=== PATIENT | male | born 1970 | race Caucasian/White ===

== ENCOUNTER 2017-05-20 05:40 | Inpatient (IN) ==
[2017-05-20] MEDS ORDERED: 0.9 % Sodium Chloride 500 ML IVC ONE ×2 (05:42→06:38)
[2017-05-20] MEDS ORDERED: Ondansetron 4 MG/2 ML VIAL IVP ONE (05:42)
--- NOTE | 2017-05-20 05:43 | Emergency Department Note ---
Disposition Clinical Impression: Dyspnea Disposition: Still a Patient Condition: Good Forms: ED Satisfaction Letter Time of Disposition: 06:44 General Adult HPI - General Chief complaint: ED Shortness of Breath/Dyspnea Stated complaint: RUPESH Time Seen by Provider: 05/20/17 05:41 Source: patient Mode of arrival: EMS Limitations: no limitations Nursing Notes Reviewed: Yes Vital Signs Reviewed: Yes - History of Present Illness HPI Narrative: Patient presents to the ED via EMS with the chief complaint of dyspnea. Patient is a peritoneal dialysis patient of Dr. Basurto. He states that he was having some cough and congestion the last time he saw him. States that he had a temperature up to 104.5. He states his deer farmer elected to give him Tylenol and not prescribe antibiotics at that time for suspected pneumonia. Additionally, he states that for the last 3 days he has had intermittent nonbloody, nonbilious non-melanic, vomiting and diarrhea. No associated abdominal pain. No chest pain. States that he woke up this morning during the middle of his peritoneal dialysis treatment and noticed that he was much more short of breath than usual, so he called EMS. Reports that he still had a few hours left on his dialysis so he does have more fluid on his belly than usual. There is no acute change for him from this. Last dose of Tylenol was approximately midnight - Related Data Home Medications Medication Instructions Recorded Confirmed Allopurinol [Zyloprim 300 MG] 300 mg PO DAILY 01/17/17 04/11/17 Cholecalciferol (Vitamin D3) 50,000 unit PO MO 01/17/17 04/11/17 [Vitamin D3] Furosemide [Lasix] 40 mg PO BID 01/17/17 04/11/17 Lisinopril 40 mg PO DAILY 01/17/17 04/11/17 Metoprolol [Lopressor] 100 mg PO BID 01/17/17 04/11/17 NIFEdipine [Nifedical Xl] 60 mg PO DAILY 01/17/17 04/11/17 Potassium Chloride [K-Tab ER] 10 meq PO DAILY 04/11/17 04/11/17 Previous Rx's Medication Instructions Recorded OxyCODONE/APAP 5/325 [Percocet 1 each PO Q6HR PRN #20 tablet 04/11/17 5/325 MG] Allergies Allergy/AdvReac Type Severity Reaction Status Date / Time No Known Allergies Allergy Verified 05/20/17 05:50 Constitutional: Reports: fever Cardiovascular: Denies: chest pain Respiratory: Reports: cough, dyspnea Gastrointestinal: Reports: nausea, vomiting, diarrhea. Denies: abdominal pain Musculoskeletal: Denies: back pain Integumentary: Denies: rash Endocrine: Reports: fatigue Past Medical History - Past Medical History Attestation: Yes The following information was validated with the patient. Source: patient Medical history: Reports: diabetes, hypertension, kidney stones, renal disease, thyroid disease Psychiatric history: Reports: no psych history - Social History Smoking Status: Former smoker Smokeless Tobacco Status: Yes Alcohol use: Reports: none Drug use: Reports: none Physical Exam - General Limitations: no limitations General appearance: alert, in no apparent distress, other (Appears ill) - Head Head exam: atraumatic, normocephalic, normal inspection - Eye Eye exam: Present: normal appearance, EOMI - ENT ENT exam: mucous membranes dry - Respiratory Respiratory exam: Absent: normal lung sounds bilaterally (Course breath sounds bilaterally) - Cardiovascular Cardiovascular exam: Present: regular rate, normal rhythm, normal heart sounds - Abdominal Exam Abdominal exam: Present: soft, Non-Tender, distention (Does have some distention but states this is from extra fluid not being taken off during his dialysis tonight), other (Peritoneal dialysis site in the left abdomen is clean and dry with no signs of infection). Absent: tenderness, guarding, rebound - Extremities Exam Extremities exam: Present: normal inspection, full ROM. Absent: tenderness, pedal edema - Neurological Exam Neurological exam: Present: alert, oriented X3 - Psychiatric Psychiatric exam: Present: normal affect, normal mood - Skin Skin exam: Present: warm, dry, intact, normal color Course Course Narrative: 47 y/o M history of peritoneal dialysis presenting with high fever, suspected pneumonia, vomiting and diarrhea. Patient's febrile here. Broad workup initiated. Abdomen is soft and do not think this is the likely source of his infection. Due to his cough and congestion. He states that he feels like he may have pneumonia. We will get a 2 view chest x-ray, EKG, and gingerly give fluids. Patient is slightly hypotensive and tachycardic. We will check his response to initial bolus and repeat as needed. He does look ill, but is nontoxic and is mentating normally Vital Signs Temperature 102.7 F H 05/20/17 05:42 Pulse Rate 139 05/20/17 05:42 Respiratory Rate 24 05/20/17 05:42 Blood Pressure 102/66 05/20/17 05:42 O2 Sat by Pulse Oximetry 96 05/20/17 05:42 Temperature 102.7 F H 05/20/17 05:42 Pulse Rate 111 05/20/17 06:35 Respiratory Rate 20 05/20/17 06:35 Blood Pressure 103/73 05/20/17 06:35 O2 Sat by Pulse Oximetry 100 05/20/17 06:35 Oxygen Delivery Oxygen Delivery Room Air Medical Decision Making - Medical Records Medical records reviewed: Yes I reviewed the patient's medical records. - Lab Data Lab results reviewed: Yes I reviewed the patient's lab results. - Radiology Data Radiology results reviewed: Yes I reviewed the patient's radiology results. - EKG Data EKG #1 EKG attestation: Yes I reviewed and interpreted this EKG. EKG results narrative: Sinus tach, rate 125, MA interval 158, QRS 96, QTC 381, normal axis, no ischemic changes. S.B.A.R. - Zully.Christina.A.Haider Situation: Demographics, MOA Background: Presenting Complaint, Relevant PMH, Meds, & Allergies Assessment: Vital Signs, Course and respsone to treatment, Exam Concerns, Patient/Family Expectation, Pertinant Lab Results, Outstanding Labs Recommendation: Barrier(s) to disposition, Recommendation based on pending studies, treatments, or consults S.B.ABrody Report Given to: Dr. Nannette Esparza Repor Time: 06:44
--- NOTE | 2017-05-20 05:51 | Emergency Department Note ---
START Narrative - START START: I examined this patient and my medical decision-making was reviewed with the TERRITORY SALES MANAGER MEDICAL/PA/Advanced Practice Nurse/Resident Physician. I agree with the documented findings, disposition and treatment plan as described except to the extent set forth below. ED attending note: Patient seen with emergency medicine resident . Please see a copy of his note for details of the H&P, evaluation, management and disposition of this patient. We independently had [id number] contact with the patient Briefly: A 47-year-old male by EMS. Chief complaint of shortness of breath cough and fever. Patient who was stage IV kidney disease is on peritoneal dialysis did 3-4 treatments last night. Fever up to 104.5 since discussed this with his PCP who held off on antibiotics and said Tylenol for now and 5 in the ER. Tachycardic in the 130s systolic 102 when he is normally baseline hypertensive. Peritoneal dialysis site on the abdominal wall is free and clear of infection swelling bleeding or discharge. Patient will be getting a chest x-ray and screening lab work. EKG shows sinus tachycardia without acute ischemic changes. Patient will get a fluid bolus carefully judiciously started and 500 mL. Providing 35 minutes critical care service for this patient , admission anticipated, disposition pending.
[2017-05-20 06:46] LABS: Mean Corpuscular Volume 88.1 fL (83.0-100.0); Red Blood Count 2.95 M/mcL (4.19-5.50); Red Cell Distribution Width 13.2 % (11.5-14.5)
[2017-05-20 06:49] LABS: Hemoglobin 8.9 g/dL (12.9-16.9); Immature Platelets 6.4 % (1.1-6.1); Mean Corpuscular HGB Conc 34.2 g/dL (31.6-35.5); Mean Corpuscular Hemoglobin 30.2 pg (28.0-33.3); Mean Platelet Volume 11.4 fL (9.4-12.4)
[2017-05-20 06:57] LABS: Albumin 2.4 g/dL (3.5-5.0); Bilirubin,Direct 0.5 mg/dL (0.0-0.5); Bilirubin,Indirect 0.3 mg/dL (0.0-1.2); Bilirubin,Total 0.8 mg/dL (0.2-1.2); Globulin 2.5 g/dL (2.4-3.5); Potassium 3.2 mEq/L (3.5-4.5); Total Protein 4.9 g/dL (6.0-8.3)
[2017-05-20 06:59] LABS: Prothrombin Time 22.4 Seconds (9.4-12.1)
[2017-05-20 07:02] LABS: Activated Partial Thrombo Time 32.1 Seconds (26.0-36.0); Platelet Count 89 K/mcL (140-400)
--- NOTE | 2017-05-20 07:35 | Emergency Department Note ---
Disposition Clinical Impression: Dialysis patient, Tachycardia, Dehydration, Sepsis due to undetermined organism Dyspnea Qualifiers: Dyspnea type: dyspnea on exertion Qualified Code(s): R06.09 - Other forms of dyspnea Fever Qualifiers: Fever type: unspecified Qualified Code(s): R50.9 - Fever, unspecified Disposition: Admitted As Inpatient Condition: Good Time of Disposition: 08:00 SOB HPI - General Chief Complaint: ED Shortness of Breath/Dyspnea Stated Complaint: RUPESH Time Seen by Provider: 05/20/17 05:41 Source: patient Mode of arrival: EMS Limitations: no limitations - Related Data Home Medications Medication Instructions Recorded Confirmed RX: Allopurinol [Zyloprim 300 MG] 300 mg PO DAILY 01/17/17 04/11/17 RX: Cholecalciferol (Vitamin D3) 50,000 unit PO MO 01/17/17 04/11/17 [Vitamin D3] RX: Furosemide [Lasix] 40 mg PO BID 01/17/17 04/11/17 RX: Lisinopril 40 mg PO DAILY 01/17/17 04/11/17 RX: Metoprolol [Lopressor] 100 mg PO BID 01/17/17 04/11/17 RX: NIFEdipine [Nifedical Xl] 60 mg PO DAILY 01/17/17 04/11/17 RX: Potassium Chloride [K-Tab ER] 10 meq PO DAILY 04/11/17 04/11/17 Previous Rx's Medication Instructions Recorded OxyCODONE/APAP 5/325 [Percocet 1 each PO Q6HR PRN #20 tablet 04/11/17 5/325 MG] Allergies Allergy/AdvReac Type Severity Reaction Status Date / Time No Known Allergies Allergy Verified 05/20/17 05:50 Constitutional: Reports: fever Cardiovascular: Denies: chest pain Respiratory: Reports: cough, dyspnea Gastrointestinal: Reports: nausea, vomiting, diarrhea. Denies: abdominal pain Musculoskeletal: Denies: back pain Integumentary: Denies: rash Endocrine: Reports: fatigue Past Medical History - Past Medical History Medical history: Reports: diabetes, hypertension, kidney stones, renal disease, thyroid disease Psychiatric history: Reports: no psych history - Social History Smoking Status: Former smoker Smokeless Tobacco Status: Yes Alcohol use: Reports: none Drug use: Reports: none Physical Exam - General Limitations: no limitations General appearance: alert, in no apparent distress, other (Appears ill) Course Course Narrative: Patient taken over the start of my shift from Dr. Goyal. Detailed review the presentation symptoms and initial medical intervention were discussed and reviewed. Patient presents here today with fever over the last week. He was seen by his outside recruiting consultant and evaluated. They recommended conservative treatment at home and that they were going to monitor his antibiotics and medication regimens closely. He presented here this morning feeling significantly short of breath having a fever up to 102.7 and tachycardic. Initial intervention including sepsis evaluation withholding antibiotics were started. 500 mL fluid boluses were given to help with heart rate in the heart rate has responded appropriately. Initial labs are coming back during my treatment course. WBC count is normal the limit is 8.9 and will have a Hemoccult test performed at this time. Patient is denying dark malonic stools. Troponin is 0.12 do not have a comparison although the patient is denying chest pain. He has had shortness of breath but is responding appropriately to fluid at this point. Lactate is 4.3. It initially was 43.7 based on first lab draw some of the elevation could be secondary to lactic production from the fluid boluses will contact the recruiting consultant at this time for his recommendations on antibiotics and management. Otherwise patient is comfortable resting in the bed at this time starting to feel a little bit better. Expect him to need admission to the hospital for definitive management. Patient's postoperative recruiting consultant at this time - Reevaluation(s) Reevaluation #1: Patient was discussed with the hospitalist Dr. ferguson. We reviewed the patient' s presentation symptoms and consultation placed out to Dr. major. Consultation be placed in the order list. Nursing came to formulate the patient 's blood pressure did drop to 75/51 when he stood up to try to urinate. He is unable to make any urine. Second liter of fluids will be given at this time. Patient does meet sepsis criteria based on his vital signs at presentation but we do not have a focal source of this time. Again antibiotics requested to be held at this point until we have a source based on the recruiting consultant. We will continue to monitor cultures were drawn at this point Hemoccult to be completed and patient will be admitted to the floor. Otherwise patient is still resting, will monitor here until his blood pressure does respond to fluids and then have the patient complete remission. Patient was informed family was informed verbal comfortable despite this time Repeat blood pressure after patient is lying back in the bed for 10 minutes is 99/56. He is what appears to be fluid depleted secondary to his viral syndrome. We will continue with fluid hydration. Again this is not per protocol for sepsis the patient is being managed with advancing in conjunction with the on-call recruiting consultant. Time: 08:07 Reevaluation #2: Replete blood pressure stable. Patient is stable at the time of transport up to the floor. No other acute issues at this time.. Patient was offered a rectal evaluation but is deferring at this time requesting to have a dominance as he does not have any dark-colored stool and no history of bleeding. 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 Patient is hemodynamically stable after resting in the bed. Time: 08:24 - Consultations Consultation #1: Patient was discussed with the on-call recruiting consultant Dr. major. The details of his presentation symptoms medical evaluation yesterday in the office were discussed and reviewed. His recommendations this time was to withhold on antibiotics since he thinks this is a viral syndrome with no focal source. Urinalysis added onto his request. Blood cultures peripherally to be done now and then cultures will be drawn during dialysis on the dialysis port. Patient does not have any acute signs of peritonitis the site of the peritoneal dialysis catheter appears to be stable and no redness warmth or swelling. Vital signs are stabilizing. Repeat bolus of fluids to be given at this time. Patient is septic based on vital signs on presentation with unknown focal source of this point. He does have multiple lab derangements including lactic of 4.3. Repeat bolus of 1 L of fluid be given at this time the maintenance fluids to be ordered. The rest of the definitive management will be discussed with the hospitalist for admission and then evaluation by nephrology. Hospital was paged at this time Time: 07:59 Vital Signs Temperature 102.7 F H 05/20/17 05:42 Pulse Rate 139 05/20/17 05:42 Respiratory Rate 24 05/20/17 05:42 Blood Pressure 102/66 05/20/17 05:42 O2 Sat by Pulse Oximetry 96 05/20/17 05:42 Temperature 99 F 05/20/17 07:50 Pulse Rate 109 05/20/17 08:10 Respiratory Rate 18 05/20/17 08:10 Blood Pressure 99/46 05/20/17 08:10 O2 Sat by Pulse Oximetry 99 05/20/17 08:10 Oxygen Delivery Oxygen Delivery Room Air Shortness of Breath/Dyspnea - MDM Narrative Medical decision making narrative: Fever,, anemia dehydration, tachycardia, peritoneal dialysis - Medical Records Medical records reviewed: Yes I reviewed the patient's medical records. - Lab Data Lab results reviewed: Yes I reviewed the patient's lab results. Result diagrams: 05/20/17 06:10 05/20/17 06:10 Lab Results 05/20/17 05/20/17 05/20/17 Range/Units 06:05 06:10 06:10 WBC 7.5 (4.3-11.1) K/mcL RBC 2.95 L (4.19-5.50) M/mcL Hgb 8.9 L (12.9-16.9) g/dL Hct 26.0 L (37.5-50.1) % MCV 88.1 (83.0-100.0) fL MCH 30.2 (28.0-33.3) pg MCHC 34.2 (31.6-35.5) g/dL RDW 13.2 (11.5-14.5) % Plt Count 89 L (140-400) K/mcL MPV 11.4 (9.4-12.4) fL Seg Neutrophils % 60.0 % Band Neutrophils % 22.0 H (0-4) % Lymphocytes % Test Not Performed Metamyelocytes % 18.0 H (0) % Neutrophils # 6.2 (1.6-8.9) K/mcL Lymphocytes # COLOR TESTER Dohle Bodies Present A (Not Present) Platelet Estimate Decreased L (Normal) Immature Plt Fraction 6.4 H (1.1-6.1) % PT (9.4-12.1) Seconds INR APTT (26.0-36.0) Seconds Sodium 136 (136-145) mEq/L Potassium 3.2 L (3.5-4.5) mEq/L Chloride 103 (98-109) mEq/L Carbon Dioxide 19 (19-29) mEq/L BUN 54 H (8-26) mg/dL Creatinine 8.30 H (0.72-1.25) mg/dL Est GFR ( Amer) 9 L (> 60) Est GFR (Non-Af Amer) 7 L (> 60) BUN/Creatinine Ratio 7 (6-26) Glucose 148 H (70-99) mg/dL Calculated Osmolality 300 (280-300) Lactic Acid 4.3 H* (0.5-2.2) mmol/L Calcium 8.0 L (8.6-10.8) mg/dL Total Bilirubin 0.8 (0.2-1.2) mg/dL Direct Bilirubin 0.5 (0.0-0.5) mg/dL Indirect Bilirubin 0.3 (0.0-1.2) mg/dL AST 34 (5-34) Units/L ALT 19 (0-55) Units/L Alkaline Phosphatase 82 (38-126) Units/L Troponin I (0-0.03) ng/mL B-Natriuretic Peptide (0-100) pg/mL Serum Total Protein 4.9 L (6.0-8.3) g/dL Albumin 2.4 L (3.5-5.0) g/dL Globulin 2.5 (2.4-3.5) g/dL Albumin/Globulin Ratio 1.0 L (1.1-2.2) 05/20/17 05/20/17 05/20/17 Range/Units 06:10 06:10 06:10 WBC (4.3-11.1) K/mcL RBC (4.19-5.50) M/mcL Hgb (12.9-16.9) g/dL Hct (37.5-50.1) % MCV (83.0-100.0) fL MCH (28.0-33.3) pg MCHC (31.6-35.5) g/dL RDW (11.5-14.5) % Plt Count (140-400) K/mcL MPV (9.4-12.4) fL Seg Neutrophils % % Band Neutrophils % (0-4) % Lymphocytes % Metamyelocytes % (0) % Neutrophils # (1.6-8.9) K/mcL Lymphocytes # Dohle Bodies (Not Present) Platelet Estimate (Normal) Immature Plt Fraction (1.1-6.1) % PT (9.4-12.1) Seconds INR APTT (26.0-36.0) Seconds Sodium (136-145) mEq/L Potassium (3.5-4.5) mEq/L Chloride (98-109) mEq/L Carbon Dioxide (19-29) mEq/L BUN (8-26) mg/dL Creatinine (0.72-1.25) mg/dL Est GFR ( Amer) (> 60) Est GFR (Non-Af Amer) (> 60) BUN/Creatinine Ratio (6-26) Glucose (70-99) mg/dL Calculated Osmolality (280-300) Lactic Acid 3.2 H (0.5-2.2) mmol/L Calcium (8.6-10.8) mg/dL Total Bilirubin (0.2-1.2) mg/dL Direct Bilirubin (0.0-0.5) mg/dL Indirect Bilirubin (0.0-1.2) mg/dL AST (5-34) Units/L ALT (0-55) Units/L Alkaline Phosphatase (38-126) Units/L Troponin I 0.12 H* (0-0.03) ng/mL B-Natriuretic Peptide 177 H (0-100) pg/mL Serum Total Protein (6.0-8.3) g/dL Albumin (3.5-5.0) g/dL Globulin (2.4-3.5) g/dL Albumin/Globulin Ratio (1.1-2.2) /03/03 Range/Units 06:10 WBC (4.3-11.1) K/mcL RBC (4.19-5.50) M/mcL Hgb (12.9-16.9) g/dL Hct (37.5-50.1) % MCV (83.0-100.0) fL MCH (28.0-33.3) pg MCHC (31.6-35.5) g/dL RDW (11.5-14.5) % Plt Count (140-400) K/mcL MPV (9.4-12.4) fL Seg Neutrophils % % Band Neutrophils % (0-4) % Lymphocytes % Metamyelocytes % (0) % Neutrophils # (1.6-8.9) K/mcL Lymphocytes # Dohle Bodies (Not Present) Platelet Estimate (Normal) Immature Plt Fraction (1.1-6.1) % PT 22.4 H (9.4-12.1) Seconds INR 2.0 APTT 32.1 (26.0-36.0) Seconds Sodium (136-145) mEq/L Potassium (3.5-4.5) mEq/L Chloride (98-109) mEq/L Carbon Dioxide (19-29) mEq/L BUN (8-26) mg/dL Creatinine (0.72-1.25) mg/dL Est GFR ( Amer) (> 60) Est GFR (Non-Af Amer) (> 60) BUN/Creatinine Ratio (6-26) Glucose (70-99) mg/dL Calculated Osmolality (280-300) Lactic Acid (0.5-2.2) mmol/L Calcium (8.6-10.8) mg/dL Total Bilirubin (0.2-1.2) mg/dL Direct Bilirubin (0.0-0.5) mg/dL Indirect Bilirubin (0.0-1.2) mg/dL AST (5-34) Units/L ALT (0-55) Units/L Alkaline Phosphatase (38-126) Units/L Troponin I (0-0.03) ng/mL B-Natriuretic Peptide (0-100) pg/mL Serum Total Protein (6.0-8.3) g/dL Albumin (3.5-5.0) g/dL Globulin (2.4-3.5) g/dL Albumin/Globulin Ratio (1.1-2.2) - Radiology Data Radiology results reviewed: Yes I reviewed the patient's radiology results. Chest x-ray shows bilateral pulmonary congestion and no acute signs of infection or infiltrates Critical Care Time Critical Care Time: Yes Total Critical Care Time: 35 Attestation: Independent of medical intervention and management and consultations.
[2017-05-20 07:43] LABS: Neutrophils # 6.2 K/mcL (1.6-8.9); Platelet Estimate Decreased (Normal)
[2017-05-20 07:53] LABS: Dohle Bodies Present (Not Present)
[2017-05-20] MEDS ORDERED: 0.9 % Sodium Chloride 1,000 ML IVC ONE (08:04)
[2017-05-20] MEDS ORDERED: Ondansetron 4 MG/2 ML VIAL IVP PRN (08:48)
[2017-05-20] MEDS ORDERED: Acetaminophen 325 MG TABLET PO PRN (08:48)
[2017-05-20] MEDS ORDERED: Naloxone 0.4 MG/ML INJ IVP PRN (08:48)
[2017-05-20] MEDS ORDERED: D5% in Water 1,000 ML IVC PRN (08:51)
[2017-05-20] MEDS ORDERED: *HR* Dextrose 50 % in Water (Syg) 50 ML SYRINGE IVP PRN (08:51)
[2017-05-20] MEDS ORDERED: Dextrose Gel 15 GM PO PRN ×2 (08:51)
--- NOTE | 2017-05-20 09:21 | Internal Med History&Physical ---
Date of Encounter: 05/20/17 Time of Encounter: 08:55 Assessment and Plan (1) Sepsis due to undetermined organism Current visit: Yes Status: Acute Sepsis - present on admission - unclear etiology possibly acute gastroenteritis, possible infection at dialysis site or possibly cellulitis at recent incision site Tachycardia, hypotension, elevated lactic acid and fever Tylenol when necessary, cultures pending Chest x-ray - no acute process EKG - sinus tachycardia with no acute ST-T changes Troponin - 0.12, unclear etiology, trend troponin Echocardiogram pending Nephrology consult - ED physician discussed with , advised to hold antibiotics for now, he will evaluate patient Labs in a.m. (2) ESRD on peritoneal dialysis Current visit: Yes Status: Chronic Patient is normally on PD at home was recently on hemodialysis via a left subclavian catheter due to his recent surgery Nephrology consult (3) Anemia in ESRD (end-stage renal disease) Current visit: Yes Status: Chronic Chronic anemia due to end-stage renal disease Baseline hemoglobin is around 10 Slightly lower today, monitor Fecal Hemoccult pending (4) Type 2 diabetes mellitus Current visit: Yes Status: Chronic Type 2 diabetes mellitus, [id number], hyperglycemia Patient does not take any medication at home for diabetes Sliding scale insulin, glucose checks Qualifiers: Diabetes mellitus complication status: without complication Diabetes mellitus termite control service representative insulin use: without termite control service representative use Qualified Code(s): E11.9 - Type 2 diabetes mellitus without complications (5) Hypertension Current visit: Yes Status: Chronic Hypertension likely due to renal disease - hypotensive at present HOLD home blood pressure medications - until BP improves, monitor Qualifiers: Hypertension type: renovascular hypertension Qualified Code(s): I15.0 - Renovascular hypertension (6) Obstructive sleep apnea Current visit: Yes Status: Chronic On CPAP at home, continue (7) DVT prophylaxis Current visit: Yes Status: Acute Continue heparin subcutaneous Internal Medicine - H&P: HPI Chief complaint: Fever and shortness of breath Admitted From: Emergency Dept History of present illness: Mr. Rudd is a 47 year old male with past medical history of hypertension, diabetes, end-stage renal disease on hemodialysis and obstructive sleep apnea. He presents to the ED with complaints of fever and shortness of breath. On examination patient is awake and alert. Not in any distress. Able to provide all history. Patient's mother is at bedside. Patient states he developed diarrhea on Friday night and also had a temperature. Patient states symptoms have gradually worsened. He also had nausea with several episodes of vomiting. Patient denies blood in stool and denies blood in emesis. Patient mentions that he was short of breath early this morning and also had a fever of about 104. He then decided to come into the ED. No aggravating or alleviating factors. He mentions he saw his high lift operator yesterday for symptoms, and he was given Tylenol, advised conservative management. He mentions that he did not complete his peritoneal dialysis this morning, and that is likely causing his shortness of breath and edema. Patient recently underwent a laparoscopic cholecystectomy, and he states that one of the port sites seems to be infected. Patient denies chest pain, denies palpitation denies headache, denies lightheadedness, denies dizziness. Initial workup in the ED reveals sepsis, with elevated lactic acid and hypotension. His blood pressure is now improved with fluid bolus. EKG shows sinus tachycardia, chest x-ray does not show any acute process. ED physician has discussed with patient's high lift operator , advised to draw cultures and hold off on antibiotics until he evaluates the patient. Patient's troponin is slightly elevated at 0.12, we will trend troponin. Patient and his mother have been explained about his condition and plan of care. They understood and agreed. No unanswered questions. CODE STATUS full code. Past Med Surg Social Fam HX - Past Medical History Medical history: diabetes, hypertension, kidney stones, renal disease, thyroid disease, other (Sleep apnea) Psychiatric history: no psych history - Past Surgical History Surgical History: cholecystectomy (Laparoscopic done in March 2017), other ( Lithotripsy) - Social History Smoking Status: Former smoker Smokeless Tobacco Status: Yes Alcohol use: none Drug use: none Internal Medicine - H&P: Meds Allopurinol [Zyloprim 300 MG] 300 mg PO DAILY 01/17/17 [History] Cholecalciferol (Vitamin D3) [Vitamin D3] 50,000 unit PO MO 01/17/17 [History] Furosemide [Lasix] 40 mg PO BID 01/17/17 [History] Lisinopril 40 mg PO DAILY 01/17/17 [History] Metoprolol [Lopressor] 100 mg PO BID 01/17/17 [History] NIFEdipine [Nifedical Xl] 60 mg PO DAILY 01/17/17 [History] OxyCODONE/APAP 5/325 [Percocet 5/325 MG] 1 each PO Q6HR PRN #20 tablet 04/11/17 [Rx] Potassium Chloride [K-Tab ER] 10 meq PO DAILY 04/11/17 [History] Allergies No Known Allergies Allergy (Verified 05/20/17 05:50) All Systems PM: A 10-system review of systems was performed and is negative for pertinent findings except as documented above in the HPI. - Constitutional Constitutional: fatigue, fever(s), weakness - EENT Eyes: no blurry vision, no loss of vision - Cardiovascular Cardiovascular ROS IM: dyspnea, edema, lightheadedness, no chest pain, no dyspnea on exertion, no orthopnea, no syncope - Respiratory Respiratory: dyspnea, no cough, no dyspnea on exertion, no wheezing, no chest congestion - Gastrointestinal Gastrointestinal: diarrhea, nausea, vomiting, no abdominal pain, no bloating, no cramping, no hematochezia, no melena - Genitourinary Genitourinary ROS male: no dysuria - Musculoskeletal Musculoskeletal ROS IM: no arthralgias - Neurological Neurological ROS: no abnormal gait, no abnormal speech, no dizziness, no focal weakness, no loss of vision, no numbness, no tingling - Constitutional Vitals: Temp Pulse Resp BP Pulse Ox 98.0 F 106 22 111/72 94 05/20/17 08:47 05/20/17 08:47 05/20/17 08:47 05/20/17 08:47 05/20/17 08:47 General appearance: Present: A&O X 3, morbidly obese, no acute distress, answers questions appropriately Exam: ill-appearing, generalized weakness - Head Head exam: Present: atraumatic - Eye Eye exam: Present: EOMI - ENT ENT exam: Present: mucous membranes dry - Neck Neck exam general surgery: Present: supple - Respiratory Respiratory exam: Present: CTAB. Absent: rales, rhonchi, wheezes, tachypnea - Cardiovascular Cardiovascular exam: Present: +S1, +S2, tachycardia - GI/Abdominal GI/Abdominal exam: Present: soft, no peritoneal signs. Absent: firm, guarding, rigid, tenderness Additional comments: Obese abdomen, PD dialysis catheter in place, no infection at PD catheter site - Extremities Exam Extremities exam: Present: pedal edema (Mild bilateral), radial pulses palpable and symetrical. Absent: cyanotic, tenderness - Neurological Exam Neurological exam: Present: alert, oriented X3, no focal deficits - Skin Additional comments: Recent cholecystectomy port site in the epigastric region - erythema present with mild tenderness Internal Med - H&P Results - Labs CBC & Chem 7: 05/20/17 06:10 05/20/17 06:10
[2017-05-20] MEDS: Famotidine 20 MG TABLET PO SCH ×2 (09:25→20:28)
--- NOTE | 2017-05-20 10:42 | Nephrology Consult Note ---
Date of Encounter: 05/20/17 Time of Encounter: 10:39 Assessment and Plan (1) ESRD on peritoneal dialysis Current Visit: Yes Status: Chronic Checking PD fluid for Cell count and Diff with culture. Not suspecting Peritonitis as he is asymptomatic Checking BCx from the Permacath. With high fevers, tachycardia, elevated lactate and initially low BPs, I suspect sepsis. Upon seeing him and hearing this hx, I have added initially broad spectrum Abx including Zosyn and renally dosed Vanco (with Pharmacy monitoring). Not clear on the source but presuming perhaps the Permacath. Pending UA. He is also reporting body aches in his legs and neck, so the DDx could include Flu vs perhaps just hypokalemia (that likely developed from his recent N/V before admission). He received about 2L of 0.9% saline. Caution with further IVF d/t his ESRD status. He appears hemodynamically stable at this point. Will resume his PD. He currently has a dwell in place so this will help expedite collection of the PD fluid for assessment. Start 1.5% Dianeal, 5 times per day. Hx of Anemia: goal is 10-11, but will monitor. May add EPO during this admission. Thank you for consulting the [facility] group. Will follow with you. (2) Dehydration Current Visit: Yes Status: Acute (3) Fever Current Visit: Yes Status: Acute Qualifiers: Fever type: unspecified Qualified Code(s): R50.9 - Fever, unspecified (4) Anemia in ESRD (end-stage renal disease) Current Visit: Yes Status: Chronic History of Present Illness - Reason for Consult Consult date: 05/20/17 end stage renal disease Requesting physician: Mikey Brunson - Chief Complaint Fevers, Hx of ESRD - History of Present Illness Umair Rudd is a very pleasant 47 y/o obese WM with a pmh of biopsy proven IgA nephropathy, ESRD, DM, HTN and et al who presented to the ER with high fevers, N /V. He started PD earlier this Spring, but temporarily required a switch to HD since he developed cholecystis and required a Lap Adamaris. About two weeks ago he was able to resume PD, but the Permacath has not yet been removed (awaiting the appointment to be scheduled with Heide CÁRDENAS). He affirmed having high fevers yesterday, when I saw him at the outpt [facility] unit in [place], [place]. He denied productive sputum, abd pain near the PD catheter or rash. He developed N/V last night and presented to the ER earlier today. He still has a partial PD dwelling in place, he said. He uses a PD cycler at home. He also complained of neck and leg pains that he characterized as body aches. 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 Past Med Surg Social Fam HX - Past Medical History Medical history: diabetes, hypertension, kidney stones, renal disease, thyroid disease, other (Sleep apnea) Psychiatric history: no psych history - Past Surgical History Surgical History: cholecystectomy (Laparoscopic done in March 2017), other ( Lithotripsy) - Social History Smoking Status: Former smoker Smokeless Tobacco Status: Yes Alcohol use: none Drug use: none Medications and Allergies Cholecalciferol (Vitamin D3) [Vitamin D3] 50,000 unit PO MO 01/17/17 [History] Furosemide [Lasix] 40 mg PO BID 01/17/17 [History] Metoprolol [Lopressor] 100 mg PO BID 01/17/17 [History] NIFEdipine [Nifedical Xl] 60 mg PO DAILY 01/17/17 [History] Potassium Chloride [K-Tab ER] 10 meq PO DAILY 04/11/17 [History] Allopurinol [Zyloprim 100 MG] 100 mg PO DAILY 05/20/17 [History] Calcitriol 0.5 mcg PO DAILY 05/20/17 [History] Lisinopril [Zestril] 20 mg PO DAILY 05/20/17 [History] Allergies No Known Allergies Allergy (Verified 05/20/17 05:50) Review of Systems All Systems: reviewed and no additional remarkable complaints except as stated Exam - Vital Signs Vital signs: Initial Vital Signs Temp Pulse Resp BP Pulse Ox 102.7 F H 139 24 102/66 96 05/20/17 05:42 05/20/17 05:42 05/20/17 05:42 05/20/17 05:42 05/20/17 05:42 Intake and Output 05/19/17 05/20/17 05/20/17 23:59 07:59 15:59 Other: Weight 133.81 kg Blood Glucose* 153 Patient Weight 05/20/17 23:59 Weight 133.81 kg - General Appearance General appearance: well-developed, well-nourished, appears started age, obese EENT: ATNC, PERRL, mucous membranes moist Neck: supple Respiratory: clear Cardiology: no edema, regular rhythm, rapid rhythm, normal S1, normal S2 - Dialysis Access Dialysis Vascular Access: Venous Catheter (Left Tunneled Dialysis catheter with no exit site erythema.) Additional Comments: PD catheter was also intact without exit site erythema or any painful palpation. Integumentary: warm and dry Neurologic: no focal deficit, no asterixis, alert and oriented x3 Musculoskeletal: no deformities, no erythema, no clubbing Psychiatric: mood/affect appropriate, cooperative Results - Lab Results 05/20/17 06:10 05/20/17 06:10 Most recent lab results Calcium 8.0 mg/dL (8.6-10.8) L 05/20/17 06:10 Magnesium 1.2 mg/dL (1.6-2.6) L 05/20/17 09:15 I reviewed the above auto-generated data torres including Labs, Meds, Vitals, Imaging and progress notes. Consult Discharge Plan - Plan Referrals: Blayne Florence DO [Primary Care Provider] -
[2017-05-20] MEDS ORDERED: Vancomycin 2,000 MG in D5% in Water 500 ML IVPB ONE (10:50)
[2017-05-20] MEDS ORDERED: Vancomycin 1 EACH in D5% in Water 250 ML IVPB PRN (11:00)
[2017-05-20] MEDS: Insulin LISPRO 300 UNITS/3 ML VIAL SQ SCH ×2 (11:53→17:38)
[2017-05-20] MEDS: Perit. Dialysis with Dex 1.5 % 2,000 ML PERITONEAL SCH ×3 (13:02→20:30)
[2017-05-20] MEDS: Acetaminophen 325 MG TABLET PO PRN ×2 (13:06→20:34)
[2017-05-20 13:23] LABS: Bilirubin,Urine Negative (Negative); Blood,Urine Large (Negative); Clarity,Urine Cloudy (Clear); Color,Urine Yellow (Yellow); Glucose,Urine (UA) 100 mg/dL (Normal); Ketones,Urine Negative (Negative); Leukocyte Esterase,Urine Small (Negative); Nitrite,Urine Negative (Negative); Protein,Urine >=300 mg/dL (Neg-Trace); Specific Gravity,Urine 1.013 (1.010-1.025); Urobilinogen,Urine Normal (Normal)
[2017-05-20 13:25] LABS: Bacteria,Urine None Seen per hpf (None-Few); Hyaline Casts,Urine None Seen per lpf (None-Few); Squamous Epithelial Cell,Urine Many per lpf (None-Few); WBC,Urine 30-50 per hpf (0-3)
[2017-05-20] MEDS: Piperacillin/Tazobactam 3.375 GM in D5% in Water (Mini-Bag+) 100 ML IVPB SCH (16:28)
[2017-05-20] MEDS ORDERED: Acetaminophen 325 MG TABLET PO ONE (16:39)
[2017-05-20] MEDS: *HR* Heparin 5,000 UNIT/ML VIAL SQ SCH (17:38)
[2017-05-20 18:21] LABS: Appearance of Body Fluid Clear (Clear); Volume of Body Fluid 40 mL
[2017-05-20] MEDS ORDERED: *HR* OxyCODONE/APAP 5/325 TABLET PO PRN (23:42)
[2017-05-21] MEDS: Insulin LISPRO 300 UNITS/3 ML VIAL SQ SCH ×5 (00:29→23:14)
[2017-05-21] MEDS: Perit. Dialysis with Dex 1.5 % 2,000 ML PERITONEAL SCH ×5 (00:30→20:19)
[2017-05-21 00:56] LABS: blaKPC Carbapenem-Resist Gene Not Detected (Not Detect); mecA Methicillin-Resist Gene ***DETECTED*** (Not Detect)
[2017-05-21 00:57] LABS: Acinetobacter baumannii by PCR Not Detected (Not Detect); Candida albicans by PCR Not Detected (Not Detect); Candida glabrata by PCR Not Detected (Not Detect); Candida krusei by PCR Not Detected (Not Detect); Candida parapsilosis by PCR Not Detected (Not Detect); Candida tropicalis by PCR Not Detected (Not Detect); Enterococcus by PCR Not Detected (Not Detect); Escherichia coli by PCR Not Detected (Not Detect); Klebsiella oxytoca by PCR Not Detected (Not Detect); Klebsiella pneumoniae by PCR Not Detected (Not Detect); Pseudomonas aeruginosa by PCR Not Detected (Not Detect); Serratia marcescens by PCR Not Detected (Not Detect); Staphylococcus aureus by PCR ***DETECTED*** (Not Detect); Streptococcus agalactiae(B)PCR Not Detected (Not Detect); Streptococcus by PCR Not Detected (Not Detect); Streptococcus pneumoniae PCR Not Detected (Not Detect); Streptococcus pyogenes (A) PCR Not Detected (Not Detect); vanA/B Vancomycin-Resist Genes Not Detected (Not Detect)
[2017-05-21 04:13] LABS: Mean Platelet Volume 11.8 fL (9.4-12.4)
[2017-05-21 04:15] LABS: Hematocrit 25.2 % (37.5-50.1); Hemoglobin 8.5 g/dL (12.9-16.9); Immature Platelets 9.3 % (1.1-6.1); Mean Corpuscular HGB Conc 33.7 g/dL (31.6-35.5); Mean Corpuscular Hemoglobin 29.9 pg (28.0-33.3); Mean Corpuscular Volume 88.7 fL (83.0-100.0); Monocytes # 0.2 K/mcL (0.0-1.3); Red Blood Count 2.84 M/mcL (4.19-5.50); Red Cell Distribution Width 13.2 % (11.5-14.5)
[2017-05-21 04:18] LABS: Platelet Count 71 K/mcL (140-400)
[2017-05-21 04:25] LABS: Albumin 2.2 g/dL (3.5-5.0); Albumin/Globulin Ratio 0.8 (1.1-2.2); Bilirubin,Total 0.5 mg/dL (0.2-1.2); Calcium 8.2 mg/dL (8.6-10.8); Globulin 2.7 g/dL (2.4-3.5); Magnesium 1.3 mg/dL (1.6-2.6); Phosphorous 4.8 mg/dL (2.3-4.7); Potassium 3.1 mEq/L (3.5-4.5); Total Protein 4.9 g/dL (6.0-8.3)
[2017-05-21 04:32] LABS: Lymphocytes # 0.3 K/mcL (0.6-4.6); Neutrophils # 7.2 K/mcL (1.6-8.9); Platelet Estimate Decreased (Normal)
[2017-05-21 04:34] LABS: Dohle Bodies Present (Not Present); Toxic Granulation Present (Not Present); Toxic Vacuolation Present (Not Present)
[2017-05-21] MEDS: *HR* Heparin 5,000 UNIT/ML VIAL SQ SCH ×2 (05:59→17:01)
[2017-05-21] MEDS: Piperacillin/Tazobactam 3.375 GM in D5% in Water (Mini-Bag+) 100 ML IVPB SCH (06:00)
[2017-05-21] MEDS: Acetaminophen 325 MG TABLET PO PRN (06:03)
[2017-05-21] MEDS: Famotidine 20 MG TABLET PO SCH (07:44)
[2017-05-21 08:40] LABS: INR 1.6; Prothrombin Time 17.2 Seconds (9.4-12.1)
--- NOTE | 2017-05-21 09:24 | Nephrology Progress Note ---
Date of Encounter: 05/21/17 Time of Encounter: 08:50 - Assessment and Plan (1) ESRD on peritoneal dialysis Current Visit: Yes Status: Chronic Continue PD but he has MRSA bacteremia, and I've personally consulted and spoke with IR requesting a more urgent Permacath removal. Repeat INR today d/t an intrinisic elevation noted yesterday: if not improved enough, then give vit K today. He needs the source removed. PD fluid does not appear to be consistent with Peritionitis. Will increase KCl to 20mEq po bid and check Mag in AM Track CK Narrow the Abx spectrum to just Vanco. Stopping Zosyn Will he need a BRYAN? (2) Dehydration Current Visit: Yes Status: Acute (3) Fever Current Visit: Yes Status: Acute Qualifiers: Fever type: unspecified Qualified Code(s): R50.9 - Fever, unspecified (4) Anemia in ESRD (end-stage renal disease) Current Visit: Yes Status: Chronic Relatively stable (5) Elevated CK Current Visit: Yes Status: Acute (6) Neck pain Current Visit: Yes Status: Acute Could be connected to the Permacath vs hypokalemia vs the mild-moderately elevated CK. (7) MRSA bacteremia Current Visit: Yes Status: Acute Must remove the Permacath. Most likely etiology Subjective Principal diagnosis: Fevers; Hx of ESRD Interval history: Pt was seen/examined earlier today. He affirmed having ongoing neck pains near the site of the Permacath. We discussed his BCx findings, labs and plans for PD with Permacath removal. He affirmed that he does not take any blood thinners Objective - Vital Signs Vital signs: Vital Signs Temp Pulse Resp BP Pulse Ox 05/21/17 07:53 94 05/21/17 06:52 98.7 F 107 18 122/76 94 05/21/17 05:52 100.1 F H 20 05/21/17 03:08 99.1 F 106 20 113/68 92 05/20/17 23:33 97.7 F 92 22 116/72 98 05/20/17 23:19 21 96 05/20/17 20:18 101.2 F H 105 22 122/75 96 05/20/17 15:53 103.1 F H 112 22 140/67 92 05/20/17 11:43 98.6 F 69 18 95/59 94 Intake and Output 07/04/17 07/05/17 07/05/17 23:59 07:59 15:59 Intake Total 100 / 100 450 / 450 0 / 0 Output Total 620 / 620 825 / 825 Balance -520 / -520 -375 / -375 0 / 0 Intake: IV Fluids 100 / 100 Zosyn 3.375 GM In 100 / 100 Dextrose 5% (Minibag+) 100 ML 100 ML @ 25 mls/hr IVPB Q12HR ZOEY Rx#: [id number] Oral 0 / 0 450 / 450 0 / 0 Output: Urine 620 / 620 825 / 825 Other: Meal Breakfast Percent of Meal Consumed 50% Total Peritoneal Dialysis 0 300 Output # Voids 2 Weight 129.898 kg 135 kg 133.016 kg Blood Glucose* 184 143 Patient Weight 05/21/17 23:59 Weight 133.016 kg - General Appearance Exam: General appearance: well-developed, well-nourished, appears started age, obese EENT: ATNC, PERRL, mucous membranes moist Neck: supple Respiratory: clear Cardiology: no edema, regular rhythm, rapid rhythm, normal S1, normal S2 - Dialysis Access Dialysis Vascular Access: Venous Catheter (Left Tunneled Dialysis catheter with no exit site erythema.) Additional Comments: PD catheter was also intact without exit site erythema or any painful palpation. Integumentary: warm and dry Neurologic: no focal deficit, no asterixis, alert and oriented x3 Musculoskeletal: no deformities, no erythema, no clubbing Psychiatric: mood/affect appropriate, cooperative - Lab 05/21/17 04:03 05/21/17 04:03 Most recent lab results Calcium 8.2 mg/dL (8.6-10.8) L 05/21/17 04:03 Phosphorus 4.8 mg/dL (2.3-4.7) H 05/21/17 04:03 Magnesium 1.3 mg/dL (1.6-2.6) L 05/21/17 04:03 Consult Discharge Plan - Plan Referrals: Blayne Florence DO [Primary Care Provider] - 05/28/17 9:30 am (web request..05/21/2017)
--- NOTE | 2017-05-21 10:42 | Internal Med Progress Note ---
<Darrell Horton - Last Filed: 05/21/17 11:39> Date of Encounter: 05/21/17 Time of Encounter: 09:20 - Assessment and plan (1) Sepsis due to undetermined organism Current Visit: Yes Status: Acute Assessment and plan: Continue on vancomycin. Discontinue Zosyn. BRYAN ordered. Continue to monitor patient vitals. (2) ESRD on peritoneal dialysis Current Visit: Yes Status: Chronic (3) Anemia in ESRD (end-stage renal disease) Current Visit: Yes Status: Chronic Assessment and plan: Continue to monitor hemoglobin. Currently 8.5. Baseline hemoglobin is approximately 10. (4) Type 2 diabetes mellitus Current Visit: Yes Status: Chronic Assessment and plan: Sliding scale insulin, check glucose levels. Qualifiers: Diabetes mellitus complication status: without complication Diabetes mellitus exterminator insulin use: without halfway use Qualified Code(s): E11.9 - Type 2 diabetes mellitus without complications (5) Hypertension Current Visit: Yes Status: Chronic Assessment and plan: Continue to monitor blood pressure. Hypertension likely secondary to renal disease. Qualifiers: Hypertension type: renovascular hypertension Qualified Code(s): I15.0 - Renovascular hypertension (6) Obstructive sleep apnea Current Visit: Yes Status: Chronic Assessment and plan: Patient is on CPAP at home, continue. - Subjective Interval history: Patient was seen and examined at bedside this morning. He states that his breathing has improved since admission, and that he slept well last night. He denies having any nausea or vomiting but does admit to having diarrhea yesterday evening. He has not had a bowel movement this morning. His only other complaint is pain in his neck and posterior thighs bilaterally, which he describes as a sharp pain that was not present on admission. He denies fever, chills, chest pain, cough, congestion, and shortness of breath. - Constitutional Vitals: Temp Pulse Resp BP Pulse Ox 98.7 F 107 18 122/76 94 05/21/17 06:52 05/21/17 06:52 05/21/17 06:52 05/21/17 06:52 05/21/17 07:53 General appearance: Present: cooperative, A&O X 3, morbidly obese, no acute distress, answers questions appropriately - ENT ENT exam: Present: mucous membranes dry. Absent: mucous membranes moist - Respiratory Respiratory exam: Present: CTAB. Absent: accessory muscle use, rales, rhonchi, wheezes - Cardiovascular Cardiovascular exam: Present: RRR, +S1, +S2. Absent: diastolic murmur, gallop, rubs, systolic murmur Internal Medicine: Result - Labs CBC & Chem 7: 05/21/17 04:03 05/21/17 04:03 Labs: Short CBC 05/21/17 Range/Units 04:03 WBC 7.7 (4.3-11.1) K/mcL Hgb 8.5 L (12.9-16.9) g/dL Hct 25.2 L (37.5-50.1) % Plt Count 71 L (140-400) K/mcL Neutrophils # 7.2 (1.6-8.9) K/mcL BMP 05/21/17 04:03 Sodium 136 Potassium 3.1 L Chloride 103 Carbon Dioxide 22 BUN 61 H Creatinine 8.84 H Glucose 160 H Calcium 8.2 L Cardiac Enzymes 05/20/17 05/20/17 Range/Units 15:19 20:53 Troponin I 0.14 H* 0.15 H* (0-0.03) ng/mL Liver Function 05/21/17 Range/Units 04:03 Total Bilirubin 0.5 (0.2-1.2) mg/dL AST 93 H (5-34) Units/L ALT 33 (0-55) Units/L Alkaline Phosphatase 73 (38-126) Units/L Albumin 2.2 L (3.5-5.0) g/dL Urine 05/20/17 Range/Units 13:10 Urine Color Yellow (Yellow) Urine Clarity Cloudy A (Clear) Urine pH 6.0 (5.0-8.0) pH Units Ur Specific Moffat 1.013 (1.010-1.025) Urine Protein >=300 H (Neg-Trace) mg/dL Urine Glucose (UA) 100 H (Normal) mg/dL - ABG Interpretation ABG results: PT/INR, D-dimer PT 17.2 Seconds (9.4-12.1) H 05/21/17 08:27 Consult Discharge Plan - Plan Referrals: Blayne Florence DO [Primary Care Provider] - 05/28/17 9:30 am (web request..05/21/2017) <Clarence Moore - Last Filed: 05/21/17 17:49> Date of Encounter: 05/21/17 - Assessment and plan (1) Severe sepsis due to methicillin resistant Staphylococcus aureus (MRSA) with acute organ dysfunction Current Visit: Yes Status: Acute Assessment and plan: On IV abx. (2) MRSA bacteremia Current Visit: Yes Status: Acute Assessment and plan: MRSA line associated present on admission. Line removed. (3) Hypertension Current Visit: Yes Status: Chronic Qualifiers: Hypertension type: renovascular hypertension Qualified Code(s): I15.0 - Renovascular hypertension (4) Neck pain Current Visit: Yes Status: Acute Assessment and plan: Appears to be muscular. Will follow closely. (5) Type 2 diabetes mellitus Current Visit: Yes Status: Chronic Qualifiers: Diabetes mellitus complication status: without complication Diabetes mellitus exterminator insulin use: without exterminator use Qualified Code(s): E11.9 - Type 2 diabetes mellitus without complications (6) Obstructive sleep apnea Current Visit: Yes Status: Chronic (7) Elevated CK Current Visit: Yes Status: Acute Assessment and plan: Recheck. (8) Anemia in ESRD (end-stage renal disease) Current Visit: Yes Status: Chronic (9) Peritoneal dialysis status Current Visit: Yes Status: Acute - Constitutional Vitals: Temp Pulse Resp BP Pulse Ox 99.8 F H 82 18 118/69 94 05/21/17 15:26 05/21/17 15:26 05/21/17 15:26 05/21/17 15:26 05/21/17 15:26 Internal Medicine: Result - Labs CBC & Chem 7: 05/21/17 04:03 05/21/17 04:03 Labs: Short CBC 05/21/17 Range/Units 04:03 WBC 7.7 (4.3-11.1) K/mcL Hgb 8.5 L (12.9-16.9) g/dL Hct 25.2 L (37.5-50.1) % Plt Count 71 L (140-400) K/mcL Neutrophils # 7.2 (1.6-8.9) K/mcL BMP 05/21/17 04:03 Sodium 136 Potassium 3.1 L Chloride 103 Carbon Dioxide 22 BUN 61 H Creatinine 8.84 H Glucose 160 H Calcium 8.2 L Cardiac Enzymes 05/20/17 Range/Units 20:53 Troponin I 0.15 H* (0-0.03) ng/mL Liver Function 05/21/17 Range/Units 04:03 Total Bilirubin 0.5 (0.2-1.2) mg/dL AST 93 H (5-34) Units/L ALT 33 (0-55) Units/L Alkaline Phosphatase 73 (38-126) Units/L Albumin 2.2 L (3.5-5.0) g/dL - ABG Interpretation ABG results: PT/INR, D-dimer PT 17.2 Seconds (9.4-12.1) H 05/21/17 08:27 - Attending Attestation I examined this patient and my medical decision-making was reviewed with the Resident Physician on 05/21/17. I agree with the documented findings, disposition and treatment plan as described except to the extent set forth below. Mr. Rudd is currently admitted for acute severe sepsis due to MRSA bacteremia - line infection. He is high risk due to potential for worsening sepsis issues. Mr. Rudd is still feeling chilled at times. No fever now. BP has been OK. Having some pain in back of neck and back of legs on muscles. Exam Alert. Comfortable now Heart reg No wheeze Paraspinal tenderness on L in C spine Abd soft I/P 1. Severe sepsis due to MRSA bacteremia - line associated infection - present on admit. 2. ESRD on PD Further diagnoses and plan as above.
[2017-05-21 11:41] LABS: Acinetobacter baumannii by PCR Not Detected (Not Detect); Candida albicans by PCR Not Detected (Not Detect); Candida glabrata by PCR Not Detected (Not Detect); Candida krusei by PCR Not Detected (Not Detect); Candida parapsilosis by PCR Not Detected (Not Detect); Candida tropicalis by PCR Not Detected (Not Detect); Enterococcus by PCR Not Detected (Not Detect); Escherichia coli by PCR Not Detected (Not Detect); Klebsiella oxytoca by PCR Not Detected (Not Detect); Klebsiella pneumoniae by PCR Not Detected (Not Detect); Pseudomonas aeruginosa by PCR Not Detected (Not Detect); Serratia marcescens by PCR Not Detected (Not Detect); Staphylococcus aureus by PCR ***DETECTED*** (Not Detect); Streptococcus agalactiae(B)PCR Not Detected (Not Detect); Streptococcus by PCR Not Detected (Not Detect); Streptococcus pneumoniae PCR Not Detected (Not Detect); Streptococcus pyogenes (A) PCR Not Detected (Not Detect); mecA Methicillin-Resist Gene ***DETECTED*** (Not Detect)
--- NOTE | 2017-05-21 13:29 | Electrocardiograph Report ---
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
--- NOTE | 2017-05-21 13:29 | IR Procedure Note ---
Date of procedure: 05/21/17 Consent Obtained: Written consent Timeout: Correct patient and procedure verified, Correct site verified, Time out performed, Skin prep completed Local anesthetic: Lidocaine 1% Indications: MRSA bacteremia, ESRD Procedure Performed: Tunneled HD catheter removal Site/Technique: Left chest wall Results/Findings: Pulled after dissection. Removed in entirety. Estimated blood loss (cc): 0 Complications: None; Tolerated procedure well Post Procedure Treatment Plan: Monitoring in pts room
[2017-05-21] MEDS: Gentamicin Oint 15 GM TUBE TP SCH ×3 (14:06→20:20)
[2017-05-21] MEDS ORDERED: Famotidine 20 MG TABLET PO SCH (16:30)
[2017-05-21] MEDS ORDERED: Magnesium Sulfate 2 GM in D5% in Water 100 ML IVPB ONE (17:50)
[2017-05-21] MEDS: *HR* OxyCODONE/APAP 5/325 TABLET PO PRN (21:31)
[2017-05-22] MEDS: Perit. Dialysis with Dex 1.5 % 2,000 ML PERITONEAL SCH ×5 (00:32→20:28)
[2017-05-22] MEDS: *HR* Heparin 5,000 UNIT/ML VIAL SQ SCH ×2 (06:39→17:01)
[2017-05-22 06:55] LABS: Hemoglobin 8.4 g/dL (12.9-16.9); Red Cell Distribution Width 13.3 % (11.5-14.5)
[2017-05-22 06:57] LABS: Immature Platelets 13.7 % (1.1-6.1); Mean Corpuscular HGB Conc 33.6 g/dL (31.6-35.5); Mean Corpuscular Volume 89.3 fL (83.0-100.0)
[2017-05-22 07:07] LABS: Platelet Count 67 K/mcL (140-400)
[2017-05-22 07:19] LABS: Calcium 8.4 mg/dL (8.6-10.8); Magnesium 2.2 mg/dL (1.6-2.6); Potassium 3.2 mEq/L (3.5-4.5)
[2017-05-22] MEDS: Famotidine 20 MG TABLET PO SCH (07:46)
[2017-05-22] MEDS: Insulin LISPRO 300 UNITS/3 ML VIAL SQ SCH ×4 (07:55→23:25)
[2017-05-22 08:05] LABS: Basophils # 0.1 K/mcL (0.0-0.2); Lymphocytes # 0.7 K/mcL (0.6-4.6); Neutrophils # 5.1 K/mcL (1.6-8.9); Platelet Estimate Decreased (Normal)
[2017-05-22] MEDS ORDERED: Vancomycin 500 MG in D5% in Water (Mini-Bag+) 100 ML IVPB ONE (09:50)
[2017-05-22] MEDS ORDERED: 0.9 % Sodium Chloride 500 ML IVC ONE ×2 (10:03→10:37)
[2017-05-22] MEDS ORDERED: Tetracaine/Benzocaine/Butamben 200MG/SPRAY (100SPY/BOT) MM ONE (10:03)
[2017-05-22] MEDS: *HR* FentaNYL (PF) 100 MCG/2 ML VIAL IVP PRN ×3 (10:55→11:05)
[2017-05-22] MEDS: *HR* Midazolam HCl 5 MG/5 ML VIAL IVP PRN ×3 (10:55→11:05)
[2017-05-22] MEDS: Gentamicin Oint 15 GM TUBE TP SCH ×4 (11:46→20:30)
--- NOTE | 2017-05-22 12:51 | Nephrology Progress Note ---
Date of Encounter: 05/22/17 Time of Encounter: 09:00 - Assessment and Plan (1) ESRD on peritoneal dialysis Current Visit: Yes Status: Chronic Continue PD with sterile technique. Spoke with the RNs on sterile technique Permacath has been removed, which was the suspected etiology for the MRSA Bactermia May need higher dosing of the KCl There was a small blood clot x1 in the PD fluid, but not enough to add heparin to his PD fluid bags Vanco for MRSA Bactermia (2) Dehydration Current Visit: Yes Status: Acute (3) Fever Current Visit: Yes Status: Acute Qualifiers: Fever type: unspecified Qualified Code(s): R50.9 - Fever, unspecified (4) Anemia in ESRD (end-stage renal disease) Current Visit: Yes Status: Chronic Relatively stable (5) Elevated CK Current Visit: Yes Status: Acute (6) Neck pain Current Visit: Yes Status: Acute Could be connected to the Permacath vs hypokalemia vs the mild-moderately elevated CK. (7) MRSA bacteremia Current Visit: Yes Status: Acute Must remove the Permacath. Most likely etiology Subjective Principal diagnosis: Fevers; Hx of ESRD Interval history: Pt was seen/examined earlier today. He affirmed having periodic nausea but without vomiting. He did not report Abd pain or F/C. He mentioned some questions about PD technique. Objective - Vital Signs Vital signs: Vital Signs Temp Pulse Resp BP Pulse Ox 05/22/17 10:31 98.3 F 94 18 131/87 95 05/22/17 07:45 95 05/22/17 07:19 98.9 F 90 16 116/62 95 05/22/17 03:32 98.0 F 89 20 114/71 95 05/22/17 00:33 98.3 F 88 20 129/70 96 05/21/17 18:53 98.2 F 99 21 109/82 96 05/21/17 15:26 99.8 F H 82 18 118/69 94 Intake and Output 05/21/17 05/22/17 05/22/17 23:59 07:59 15:59 Intake Total 0 / 0 10 / 10 Output Total 525 / 525 350 / 350 0 / 0 Balance -525 / -525 -350 / -350 10 / 10 Intake: IV Fluids 10 / 10 0.9 % Sodium Chloride 500 10 / 10 ML @ 10 mls/hr IVC .Q24H ONE Rx#:[id number] Oral 0 / 0 0 / 0 Output: Urine 525 / 525 350 / 350 0 / 0 Other: Meal Dinner Percent of Meal Consumed 20% Total Peritoneal Dialysis 80 200 Output # Voids 1 Weight 132.903 kg 291.8 kg 131.995 kg Blood Glucose* 118 113 107 Patient Weight 05/22/17 23:59 Weight 131.995 kg - General Appearance Exam: General appearance: well-developed, well-nourished, appears started age, obese EENT: ATNC, PERRL, mucous membranes moist Neck: supple Respiratory: clear Cardiology: no edema, regular rhythm, rapid rhythm, normal S1, normal S2 - Dialysis Access Dialysis Vascular Access: dressing was clean overlying the former PD catheter location Additional Comments: PD catheter was also intact without exit site erythema or any painful palpation. Integumentary: warm and dry Neurologic: no focal deficit, no asterixis, alert and oriented x3 Musculoskeletal: no deformities, no erythema, no clubbing Psychiatric: mood/affect appropriate, cooperative - Lab 05/22/17 05:45 05/22/17 05:45 Most recent lab results Calcium 8.4 mg/dL (8.6-10.8) L 05/22/17 05:45 Phosphorus 4.8 mg/dL (2.3-4.7) H 05/21/17 04:03 Magnesium 2.2 mg/dL (1.6-2.6) 05/22/17 05:45 Consult Discharge Plan - Plan Referrals: Blayne Florence DO [Primary Care Provider] - 05/28/17 9:30 am (web request..05/21/2017)
--- NOTE | 2017-05-22 15:28 | Internal Med Progress Note ---
<Darrell Horton - Last Filed: 05/22/17 15:25> Date of Encounter: 05/22/17 Time of Encounter: 03:10 - Assessment and plan (1) Sepsis due to undetermined organism Current Visit: Yes Status: Acute Assessment and plan: Continue antibiotics. BRYAN was performed today. BRYAN did not reveal reveal any abnormalities on the heart valves. No infective endocarditis seen. Source of his original infection is unknown. Possibly due to infection of his port site, which has been removed, or an incision site from his laparoscopic cholecystectomy. Upon admission patient had tachycardia, hypotension, elevated lactic acid, and fever. Obtain another blood culture. (2) ESRD on peritoneal dialysis Current Visit: Yes Status: Chronic Assessment and plan: Nephrology has been consult. Patient was on hemodialysis by way of a left subclavian catheter. (3) Anemia in ESRD (end-stage renal disease) Current Visit: Yes Status: Chronic Assessment and plan: Continue to monitor hemoglobin. Patient's baseline hemoglobin is approximately 10, possibly due to his underlying kidney disease. (4) Type 2 diabetes mellitus Current Visit: Yes Status: Chronic Assessment and plan: Sliding scale insulin, check glucose levels. Patient does not take medications at home for his diabetes. Qualifiers: Diabetes mellitus complication status: without complication Diabetes mellitus halfway insulin use: without termite renewal inspector use Qualified Code(s): E11.9 - Type 2 diabetes mellitus without complications (5) Hypertension Current Visit: Yes Status: Chronic Assessment and plan: Continue to monitor blood pressure. Hypertension likely secondary to renal disease. Qualifiers: Hypertension type: renovascular hypertension Qualified Code(s): I15.0 - Renovascular hypertension (6) Obstructive sleep apnea Current Visit: Yes Status: Chronic Assessment and plan: Patient is on CPAP at home, continue. Patient may need a BiPAP. - Subjective Interval history: Patient was seen and examined at bedside this afternoon. He states that he still has pain in the back of his neck, which she describes as a sharp pain. Pain is exacerbated when he turns his head from [id number]. He states that he also has pain in the back of his legs in his thigh area. He states that his breathing is improved, although he does have a nonproductive cough that started last night. He says that he feels like he has a fever, although his body temperature is within normal range. He denies nausea, vomiting, and diarrhea. He has no additional complaints at this time. - Constitutional Vitals: Temp Pulse Resp BP Pulse Ox 98.3 F 94 18 131/87 95 05/22/17 10:31 05/22/17 10:31 05/22/17 10:31 05/22/17 10:31 05/22/17 10:31 General appearance: Present: cooperative, A&O X 3, morbidly obese, answers questions appropriately. Absent: no acute distress - Respiratory Respiratory exam: Present: CTAB. Absent: accessory muscle use, rales, rhonchi, wheezes Additional comments: Patient does have a nonproductive cough that began last night. - Cardiovascular Cardiovascular exam: Present: RRR, +S1, +S2. Absent: diastolic murmur, gallop, rubs, systolic murmur Internal Medicine: Result - Labs CBC & Chem 7: 05/22/17 05:45 05/22/17 05:45 Labs: Short CBC 05/22/17 Range/Units 05:45 WBC 5.9 (4.3-11.1) K/mcL Hgb 8.4 L (12.9-16.9) g/dL Hct 25.0 L (37.5-50.1) % Plt Count 67 L (140-400) K/mcL Neutrophils # 5.1 (1.6-8.9) K/mcL BMP 05/22/17 05:45 Sodium 139 Potassium 3.2 L Chloride 103 Carbon Dioxide 24 BUN 61 H Creatinine 8.68 H Glucose 106 H Calcium 8.4 L - ABG Interpretation ABG results: PT/INR, D-dimer PT 17.2 Seconds (9.4-12.1) H 05/21/17 08:27 Consult Discharge Plan - Plan Referrals: Blayne Florence DO [Primary Care Provider] - 05/28/17 9:30 am (web request..05/21/2017) <Clarence Moore - Last Filed: 05/22/17 16:08> Date of Encounter: 05/22/17 Time of Encounter: 15:10 - Assessment and plan (1) Severe sepsis due to methicillin resistant Staphylococcus aureus (MRSA) with acute organ dysfunction Current Visit: Yes Status: Acute (2) MRSA bacteremia Current Visit: Yes Status: Acute (3) Hypertension Current Visit: Yes Status: Chronic Qualifiers: Hypertension type: renovascular hypertension Qualified Code(s): I15.0 - Renovascular hypertension (4) Neck pain Current Visit: Yes Status: Acute (5) Type 2 diabetes mellitus Current Visit: Yes Status: Chronic Qualifiers: Diabetes mellitus complication status: without complication Diabetes mellitus termite renewal inspector insulin use: without termite renewal inspector use Qualified Code(s): E11.9 - Type 2 diabetes mellitus without complications (6) Obstructive sleep apnea Current Visit: Yes Status: Chronic (7) Elevated CK Current Visit: Yes Status: Acute (8) Anemia in ESRD (end-stage renal disease) Current Visit: Yes Status: Chronic (9) Peritoneal dialysis status Current Visit: Yes Status: Acute - Constitutional Vitals: Temp Pulse Resp BP Pulse Ox 98.3 F 94 18 131/87 95 05/22/17 10:31 05/22/17 10:31 05/22/17 10:31 05/22/17 10:31 05/22/17 10:31 Internal Medicine: Result - Labs CBC & Chem 7: 05/22/17 05:45 05/22/17 05:45 Labs: Short CBC 05/22/17 Range/Units 05:45 WBC 5.9 (4.3-11.1) K/mcL Hgb 8.4 L (12.9-16.9) g/dL Hct 25.0 L (37.5-50.1) % Plt Count 67 L (140-400) K/mcL Neutrophils # 5.1 (1.6-8.9) K/mcL BMP 05/22/17 05:45 Sodium 139 Potassium 3.2 L Chloride 103 Carbon Dioxide 24 BUN 61 H Creatinine 8.68 H Glucose 106 H Calcium 8.4 L - ABG Interpretation ABG results: PT/INR, D-dimer PT 17.2 Seconds (9.4-12.1) H 05/21/17 08:27 - Attending Attestation I examined this patient and my medical decision-making was reviewed with the Resident Physician on 05/22/17. I agree with the documented findings, disposition and treatment plan as described except to the extent set forth below. Mr. Rudd is going to his BRYAN. Neck and leg pain seem somewhat better. No fever or chills. Has some cough and dyspnea - aerosols added. Exam Alert. Comfortable Heart reg No wheeze I/P 1. MRSA bacteremia/CLABI - present on admit - continue IV abx. ID eval. Repeat blood cx 2. ESRD Further diagnoses and plan as above.
[2017-05-22] MEDS: *HR* OxyCODONE/APAP 5/325 TABLET PO PRN (20:29)
[2017-05-22] MEDS: Acetaminophen 325 MG TABLET PO PRN (22:18)
[2017-05-23] MEDS: Perit. Dialysis with Dex 1.5 % 2,000 ML PERITONEAL SCH ×5 (03:05→20:46)
[2017-05-23 05:14] LABS: Hematocrit 24.9 % (37.5-50.1); Hemoglobin 8.3 g/dL (12.9-16.9); Immature Platelets 11.4 % (1.1-6.1); Mean Corpuscular HGB Conc 33.3 g/dL (31.6-35.5); Mean Corpuscular Hemoglobin 29.9 pg (28.0-33.3); Mean Corpuscular Volume 89.6 fL (83.0-100.0); Mean Platelet Volume 12.6 fL (9.4-12.4); Red Blood Count 2.78 M/mcL (4.19-5.50); Red Cell Distribution Width 13.3 % (11.5-14.5)
[2017-05-23] MEDS: *HR* Heparin 5,000 UNIT/ML VIAL SQ SCH ×2 (05:28→16:50)
[2017-05-23 05:35] LABS: Calcium 8.2 mg/dL (8.6-10.8); Potassium 3.2 mEq/L (3.5-4.5)
[2017-05-23 05:38] LABS: Platelet Count 71 K/mcL (140-400)
[2017-05-23 05:41] LABS: Lymphocytes # 1.3 K/mcL (0.6-4.6); Monocytes # 0.2 K/mcL (0.0-1.3); Neutrophils # 4.4 K/mcL (1.6-8.9); Platelet Estimate Decreased (Normal); Reactive Lymphocytes Present (Not Present)
[2017-05-23] MEDS ORDERED: Vancomycin 500 MG in D5% in Water (Mini-Bag+) 100 ML IVPB ONE (07:03)
[2017-05-23] MEDS ORDERED: Ipratropium/Albuterol Neb 3 ML IH PRN (07:55)
[2017-05-23] MEDS: Famotidine 20 MG TABLET PO SCH (08:32)
[2017-05-23] MEDS: *HR* OxyCODONE/APAP 5/325 TABLET PO PRN ×2 (08:32→22:23)
[2017-05-23] MEDS: Insulin LISPRO 300 UNITS/3 ML VIAL SQ SCH ×4 (08:33→21:02)
[2017-05-23] MEDS: Gentamicin Oint 15 GM TUBE TP SCH ×4 (08:42→21:02)
--- NOTE | 2017-05-23 09:56 | Internal Med Progress Note ---
<Darrell Horton - Last Filed: 05/23/17 09:54> Date of Encounter: 05/23/17 Time of Encounter: 08:30 - Assessment and plan (1) Sepsis due to undetermined organism Current Visit: Yes Status: Acute Assessment and plan: Continue antibiotics. Infectious disease was consulted today. We will determine how long patient should be on vancomycin. (2) ESRD on peritoneal dialysis Current Visit: Yes Status: Chronic Assessment and plan: Nephrology has been consulted. Patient was on hemodialysis by way of a left subclavian catheter. (3) Anemia in ESRD (end-stage renal disease) Current Visit: Yes Status: Chronic Assessment and plan: Continue to monitor hemoglobin. Patient's hemoglobin has dropped from 8.9 to 8.3. Patient's baseline hemoglobin is approximately 10, possibly due to his underlying kidney disease. (4) Type 2 diabetes mellitus Current Visit: Yes Status: Chronic Assessment and plan: Sliding scale insulin, check glucose levels. Patient does not take medications at home for his diabetes. Qualifiers: Diabetes mellitus complication status: without complication Diabetes mellitus assisted insulin use: without joint terminal attack controller use Qualified Code(s): E11.9 - Type 2 diabetes mellitus without complications (5) Hypertension Current Visit: Yes Status: Chronic Assessment and plan: Continue to monitor blood pressure. Hypertension likely secondary to renal disease. Qualifiers: Hypertension type: renovascular hypertension Qualified Code(s): I15.0 - Renovascular hypertension (6) Obstructive sleep apnea Current Visit: Yes Status: Chronic Assessment and plan: Patient is on CPAP at home, continue. Patient may need a BiPAP. (7) Neck pain Current Visit: Yes Status: Acute Assessment and plan: Patient states that he has left-sided neck pain. Restricted range of motion. Described as a sharp stabbing pain, rated 10 out of 10. We will perform CT scan. - Subjective Interval history: Patient was seen and examined at bedside this morning. Patient states that he still has a nonproductive cough, which he claims has gotten worse since yesterday morning. Patient still has pain in his neck, mostly on the left side , which is exacerbated when he tries to turn his head in either direction. When he does turn his head, pain is rated a 10 out of 10, and is described as a sharp stabbing pain. He also claims that he still has pain in his hamstrings, which is exacerbated whenever he tries to extend his legs or stand up. He states that he does not feel fever or chills. He denies having nausea or vomiting or diarrhea. - Constitutional Vitals: Temp Pulse Resp BP Pulse Ox 97.9 F 78 16 125/75 93 05/23/17 07:01 05/23/17 07:01 05/23/17 07:01 05/23/17 07:01 05/23/17 07:01 General appearance: Present: cooperative, A&O X 3, morbidly obese, answers questions appropriately. Absent: no acute distress - Neck Neck exam general surgery: Present: tenderness. Absent: full ROM Additional comments: Patient states that he is tenderness on the left side of his neck, which she describes as a sharp pain. Pain is exacerbated whenever he tries to turn his head to either side. He rates his pain 10 out of 10 on a regular tries to turn his head. His range of motion is also restricted. - Respiratory Respiratory exam: Present: wheezes. Absent: accessory muscle use, CTAB, rales, rhonchi Additional comments: Patient has expiratory wheezes bilaterally. He also has a nonproductive cough. - Cardiovascular Cardiovascular exam: Present: RRR, +S1, +S2. Absent: diastolic murmur, gallop, rubs, systolic murmur Internal Medicine: Result - Labs CBC & Chem 7: 05/23/17 04:05 05/23/17 04:05 Labs: Short CBC 05/23/17 Range/Units 04:05 WBC 5.9 (4.3-11.1) K/mcL Hgb 8.3 L (12.9-16.9) g/dL Hct 24.9 L (37.5-50.1) % Plt Count 71 L (140-400) K/mcL Neutrophils # 4.4 (1.6-8.9) K/mcL BMP 05/23/17 04:05 Sodium 139 Potassium 3.2 L Chloride 104 Carbon Dioxide 23 BUN 60 H Creatinine 8.49 H Glucose 103 H Calcium 8.2 L - ABG Interpretation ABG results: PT/INR, D-dimer PT 17.2 Seconds (9.4-12.1) H 05/21/17 08:27 Consult Discharge Plan - Plan Referrals: Blayne Florence DO [Primary Care Provider] - 05/28/17 9:30 am (web request..05/21/2017) <OscarClarence A - Last Filed: 05/23/17 15:04> Date of Encounter: 05/23/17 - Assessment and plan (1) Severe sepsis due to methicillin resistant Staphylococcus aureus (MRSA) with acute organ dysfunction Current Visit: Yes Status: Acute (2) MRSA bacteremia Current Visit: Yes Status: Acute (3) Hypertension Current Visit: Yes Status: Chronic Qualifiers: Hypertension type: renovascular hypertension Qualified Code(s): I15.0 - Renovascular hypertension (4) Neck pain Current Visit: Yes Status: Acute (5) Cough Current Visit: Yes Status: Acute (6) Type 2 diabetes mellitus Current Visit: Yes Status: Chronic Qualifiers: Diabetes mellitus complication status: without complication Diabetes mellitus joint terminal attack controller insulin use: without assisted use Qualified Code(s): E11.9 - Type 2 diabetes mellitus without complications (7) Obstructive sleep apnea Current Visit: Yes Status: Chronic (8) Elevated CK Current Visit: Yes Status: Acute (9) Anemia in ESRD (end-stage renal disease) Current Visit: Yes Status: Chronic (10) Peritoneal dialysis status Current Visit: Yes Status: Chronic - Constitutional Vitals: Temp Pulse Resp BP Pulse Ox 97.7 F 80 18 145/90 93 05/23/17 11:30 05/23/17 11:30 05/23/17 11:30 05/23/17 11:30 05/23/17 11:30 Internal Medicine: Result - Labs CBC & Chem 7: 05/23/17 04:05 05/23/17 04:05 Labs: Short CBC 05/23/17 Range/Units 04:05 WBC 5.9 (4.3-11.1) K/mcL Hgb 8.3 L (12.9-16.9) g/dL Hct 24.9 L (37.5-50.1) % Plt Count 71 L (140-400) K/mcL Neutrophils # 4.4 (1.6-8.9) K/mcL BMP 05/23/17 04:05 Sodium 139 Potassium 3.2 L Chloride 104 Carbon Dioxide 23 BUN 60 H Creatinine 8.49 H Glucose 103 H Calcium 8.2 L - ABG Interpretation ABG results: PT/INR, D-dimer PT 17.2 Seconds (9.4-12.1) H 05/21/17 08:27 - Impressions Impressions Chest X-Ray 05/23/17 09:37 IMPRESSION: No acute process. Stable cardiomegaly D/ / Mike Gonzalez MD / Mike Gonzalez MD Interpreting Provider: Mike Gonzalez MD Abdomen/Pelvis CT 05/23/17 12:30 IMPRESSION: No acute process in the chest. Subtle nodular contour of the liver with enlargement of the caudate and left hepatic lobe suggesting hepatic cirrhosis. Splenomegaly and upper abdominal varices suggesting portal venous hypertension. Abdominal and pelvic ascites that may be related to peritoneal dialysis or hepatic cirrhosis. There are two small focal hypoattenuating lesions in the body of the pancreas measuring up to 13 mm in size each that are new since 12/24/[address] Recommend further evaluation with MRCP and MRI of the abdomen with and without contrast. Multiple bilateral renal cortical lesions some of which are hyperdense and incompletely evaluated on this unenhanced CT. Many of these lesions are new since 11/22/[address] exam. Would recommend renal mass protocol MRI or CT for further evaluation. D/ / 05/23/2017 13:38:02 Doron Dumont MD / [facility] Interpreting Provider: Doron Dumont MD Cervical Spine CT 05/23/17 12:30 IMPRESSION: No acute abnormality of the cervical spine. No abnormal fluid collections. No destructive bony abnormalities. D/ / 05/23/2017 13:34:38 [facility] Interpreting Provider: Trey Mitchell MD Chest CT 05/23/17 12:30 IMPRESSION: No acute process in the chest. Subtle nodular contour of the liver with enlargement of the caudate and left hepatic lobe suggesting hepatic cirrhosis. Splenomegaly and upper abdominal varices suggesting portal venous hypertension. Abdominal and pelvic ascites that may be related to peritoneal dialysis or hepatic cirrhosis. There are two small focal hypoattenuating lesions in the body of the pancreas measuring up to 13 mm in size each that are new since 12/24/[address] Recommend further evaluation with MRCP and MRI of the abdomen with and without contrast. Multiple bilateral renal cortical lesions some of which are hyperdense and incompletely evaluated on this unenhanced CT. Many of these lesions are new since 11/22/[address] exam. Would recommend renal mass protocol MRI or CT for further evaluation. D/ / 05/23/2017 13:38:02 Doron Dumont MD / [facility] Interpreting Provider: Doron Dumont MD - Attending Attestation I examined this patient and my medical decision-making was reviewed with the Resident Physician on 05/23/17. I agree with the documented findings, disposition and treatment plan as described except to the extent set forth below. Mr. Rudd is currently admitted for acute MRSA bacteremia due to CLABSI present on admission. He is having more issues with cough and still has low grade temp. He remains moderate to high risk due to potential for worsening respiratory and infectious status. Mr. Rudd is feeling tired. He has a nonproductive cough and is worried about pneumonia. Denies abdominal pain. Still with some neck discomfort mostly on the L side muscles. Exam Alert. Comfortable currently Mucus membranes dry Heart reg Lungs with scant end exp wheeze Abd soft. One trochar site is hard - nontender. I/P 1. Severe sepsis due to MRSA bacteremia from CLABSI present on admit - on IV abx. 2. Cough and dyspnea 3. Neck pain CT today. Continue same IV abx Further diagnoses and plan as above.
--- NOTE | 2017-05-23 13:28 | Infectious Disease Consult ---
Date of Encounter: 05/23/17 Time of Encounter: 13:26 Assessment and Plan (1) Severe sepsis due to methicillin resistant Staphylococcus aureus (MRSA) with acute organ dysfunction Status: Acute Assessment and plan: The patient had four SIRS criteria plus lactic acidosis on admission. Secondary to bacteremia and TDC infection. Improved. The patient has been afebrile x 24 hours. Tachycardia has resolved. The patient continues to have bandemia. Tachypnea has resolved. Blood cultures drawn from a peripheral stick 05/20/17 are positive 2/2 sets for MRSA. Blood cultures drawn from the TDC 05/20/17 are positive 1/2 sets. Repeat blood cultures x 2 sets ordered for the AM. (2) MRSA bacteremia Status: Acute Assessment and plan: Causative organism: MRSA. Source likely the temporary dialysis catheter, which was removed 05/21/17. Dialysis catheter tip culture was positive for MRSA as well. Uncomplicated. The patient has no indwelling hardware, lines, or evidence of septic emboli. The patient has one major and one minor Modified Mata's criteria. BRYAN completed 05/22/17 was negative for vegetations. Low index of suspicion for IE. Repeat blood cultures x 2 sets in the AM. Continue Vancomycin IV. Pharmacy to dose. Goal trough approximately 15. Vanc trough this morning was 16. Duration of treatment depends on the clinical picture. Await repeat blood cultures. Avoid the insertion of any central lines until blood cultures are negative x 48 hours. Monitor renal function and for drug toxicity and dose-adjust antibiotics. Continue contact precautions per protocol. (3) CLABSI (central line-associated bloodstream infection) Status: Acute Assessment and plan: Source: left upper chest temporary dialysis catheter. TDC removed 05/21/17. Catheter tip culture positive for MRSA. Continue antibiotics as above. Qualifiers: Encounter type: initial encounter Qualified Code(s): T80.211A - Bloodstream infection due to central venous catheter, initial encounter (4) Lactic acidosis Status: Acute Assessment and plan: Likely secondary to sepsis. Resolved. (5) Neck pain Status: Acute Assessment and plan: Etiology unclear. CT of the C-spine negative for infectious etiology to explain the patient's pain. Pain management per the primary team. (6) Elevated CK Status: Acute Assessment and plan: Etiology unclear, but trending down. Continue to trend. (7) Status post cholecystectomy Status: Resolved Assessment and plan: Status post lap cholecystectomy 04/11/[address] Jean-Baptiste. Patient states he has done well post-op and has been back to work. States he did notice one of the incisions was a little red, but states he bumped this area several times when he is at work. He denies tenderness, drainage, or pain. (8) Anemia in ESRD (end-stage renal disease) Status: Chronic Assessment and plan: Hgb stable around 8.5. No evidence of active bleeding. Management per the nephrology and primary team. (9) Obstructive sleep apnea Status: Chronic (10) Peritoneal dialysis status Status: Chronic Assessment and plan: Follows with [facility] - Dr. Rosales. Nephrology consulted and following. No evidence of peritonitis. PD catheter without erythema, warmth, or tenderness. PD fluid with TNC 66 and culture negative. 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 Rudd is a 47 year old male with a past medical history of end-stage renal disease on peritoneal dialysis, hypertension, kidney stones, hypothyroidism, obstructive sleep apnea, and lap cholecystectomy in March 2017. The patient was admitted to the hospital May 20 for fever and sepsis. We are consult May 23 for further evaluation and treatment recommendations regarding MRSA bacteremia. The patient's 47-year-old male past medical history as stated above. Back in March , the patient had a lap cholecystectomy and had a temporary dialysis catheter placed due to not being able to use his peritoneal dialysis catheter after surgery. He had hemodialysis for about 3 weeks, and then was able to resume his [facility] dialysis. The patient reports that earlier this week on Friday he was seen by his supervisor stone for a regularly scheduled follow-up and was noted to have a fever and cough with congestion. The patient was discharged to go home without antibiotics with instructions to use Tylenol to control his fever. He states that that night, he developed shivers and chills and nausea with vomiting and diarrhea. He presented to the emergency department that morning. Upon arrival, he was febrile with temperature 102.7, he is tachycardic and tachypneic and had bandemia. Laboratory studies revealed a lactic acidosis. Blood cultures were obtained in the ER 2 sets from a peripheral stick. A urinalysis was obtained that appear contaminated. Chest x-ray was normal. The patient was admitted to the hospital further may wish and treatment. Antibiotics were on hold due to an unidentified source of the patient's fevers. Blood cultures were obtained from the patient's temporary dialysis catheter after admission 2 sets. Blood cultures drawn from the peripheral stick are +2 out of 2 sets for MRSA in 1 out of 2 sets from the temporary dialysis catheter. The tapered off catheter was removed on May 21 in the tip culture came back positive for MRSA as well. The patient was started on IV vancomycin. He has been afebrile for 48 hours. His lactic acidosis has resolved. He has resumed peritoneal dialysis. He had a CT of the abdomen and pelvis, C-spine, and chest this morning that revealed no evidence of septic emboli or infectious etiology. We've been asked to evaluate and make further recommendations. During my exam today, the patient endorses a history as stated above. He reports a fever of 103 at home, with associated chills and rigors. He reports some left posterior lateral neck pain that has started to the past couple of days. He denies any headache, dizziness, or weakness. He denies any chest pain but does report some chest congestion with a nonproductive cough that started a couple days prior to seeing his supervisor stone. He denies any nasal congestion, earache, or sore throat. He denies any blurred vision or floaters. He reports nausea with vomiting and diarrhea at home, but states this has gotten better since admission. He does report that his appetite is still not very good, but he denies any abdominal pain now or on admission. He states that his cholecystectomy sites have healed well except for the one just above his umbilicus that he often bumps throughout the day while working. He does deny any tenderness, drainage, or warmth, but noticed that it has been a little bit red recently. The only other pain he complains of is muscle pain to the posterior thighs. He denies any joint swelling, redness, or warmth. He denies any oral thrush or skin lesions. He denies any rashes. The patient lives at home with his family. 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 He denies any recent travel. He chews about a can of chewing tobacco per day. He denies any alcohol or illicit drug use. CC: Clarence Moore, DO Past Med Surg Social Fam HX - Past Medical History Attestation: Yes The following information was validated with the patient. Source: patient, old records reviewed, nursing notes reviewed Medical history: diabetes, hypertension, kidney stones, renal disease (ESRD on PD), thyroid disease, other Psychiatric history: no psych history - Past Surgical History Surgical History: cholecystectomy (March 2017), other (TDC insertion March 2017) - Social History Smoking Status: Former smoker Smokeless Tobacco Status: Yes Alcohol use: none Drug use: none Occupational status: employed Current living situation: Home - Independent Activity Level: Independent ambulation Recent Out of Country Travel Within the Last 8 Weeks: No Exposure or Possible Exposure to Illness During Travel: No Infectious Disease-CN:Meds Cholecalciferol (Vitamin D3) [Vitamin D3] 50,000 unit PO MO 01/17/17 [History] Furosemide [Lasix] 40 mg PO BID 01/17/17 [History] Metoprolol [Lopressor] 100 mg PO BID 01/17/17 [History] NIFEdipine [Nifedical Xl] 60 mg PO DAILY 01/17/17 [History] Potassium Chloride [K-Tab ER] 10 meq PO DAILY 04/11/17 [History] Allopurinol [Zyloprim 100 MG] 100 mg PO DAILY 05/20/17 [History] Calcitriol 0.5 mcg PO DAILY 05/20/17 [History] Lisinopril [Zestril] 20 mg PO DAILY 05/20/17 [History] Allergies No Known Allergies Allergy (Verified 05/20/17 05:50) All systems: reviewed and no additional remarkable complaints except as stated Exam - Constitutional Vitals: Temp Pulse Resp BP Pulse Ox 97.7 F 80 18 145/90 93 05/23/17 11:30 05/23/17 11:30 05/23/17 11:30 05/23/17 11:30 05/23/17 11:30 General appearance: cooperative, morbidly obese, no acute distress - Head Head exam: Present: atraumatic, normal inspection, normocephalic - Eye Eye exam: Present: EOMI, normal appearance, PERRL Pupils: Present: normal accommodation Additional comments: No subconjunctival hemorrhage noted. - ENT ENT exam: Present: mucous membranes moist - Neck Neck exam: Present: normal inspection, tenderness (Left posterolateral neck). Absent: full ROM Additional comments: No mass, fluctuance, or induration noted. - Respiratory Respiratory exam: Present: CTAB. Absent: rales, respiratory distress, rhonchi, wheezes - Cardiovascular Cardiovascular exam: Present: RRR, +S1, +S2 - GI/Abdominal GI/Abdominal exam: Present: distended (obese), normal bowel sounds, soft. Absent: tenderness Additional comments: PD catheter noted to the LLQ with dressing C/D/I. - Extremities Exam Extremities exam: Present: normal inspection. Absent: joint swelling, pedal edema, tenderness Additional comments: No endocarditis stigmata noted. - Back Exam Back exam: Present: normal inspection. Absent: paraspinal tenderness, rash noted, vertebral tenderness - Neurological Exam Neurological exam: Present: alert, oriented X3, no focal deficits - Psychiatric Psychiatric exam: Present: normal affect, normal mood - Skin Skin exam: Present: dry, intact, normal color, warm - Additional findings Additional findings: Dressing noted to the left upper chest, C/D/I. No surrounding erythema, warmth, or tenderness noted. Infectious Disease CN: Results - Labs CBC & Chem 7: 05/23/17 04:05 05/23/17 04:05 Cultures: Cultures 05/20/17 15:45 Blood Culture - Final Central Venous Catheter Methicillin Resistant S.aureus 05/21/17 12:44 Catheter Tip Culture - Final Intravenous or Arterial Cath Methicillin Resistant S.aureus 05/20/17 17:45 Body Fluid Culture - Final Peritoneal Fluid 05/20/17 15:45 Blood Culture - Preliminary Central Venous Catheter No growth. 05/20/17 13:10 Urine Culture - Final Urine,Clean Catch No pathogens isolated. 05/21/17 01:25 Influenza Types A,B Antigen (CHRIS) - Final Nasopharyngeal Serology: Serology 05/20/17 05/20/17 05/20/17 Range/Units 17:45 16:55 15:45 Urine Color (Yellow) Urine Clarity (Clear) Urine pH (5.0-8.0) pH Units Ur Specific [place] (1.010-1.025) Urine Protein (Neg-Trace) mg/dL Urine Glucose (UA) (Normal) mg/dL Urine Ketones (Negative) mg/dL Urine Blood (Negative) Urine Nitrite (Negative) Urine Bilirubin (Negative) Urine Urobilinogen (Normal) mg/dL Ur Leukocyte Esterase (Negative) Urine Microscopic RBC (0-3) per hpf Urine Microscopic WBC (0-3) per hpf Ur Squamous Epith Cells (None-Few) per lpf Urine Bacteria (None-Few) per hpf Hyaline Casts (None-Few) per lpf Ur Culture Indicated? (NO) Fluid Source Peritoneal fluid Fluid Volume 40 mL Fluid Appearance Clear (Clear) Fluid RBC < 0.002 (No Ref Range) M/mcL Fld Tot Nucleated Cell 66 (No Ref Range) TNC/mcL Fluid Seg Neutrophil % 90.0 % Fld Band Neutrophil % 4.0 % Fluid Lymphocytes % 1.0 % Fluid Monocytes % 5.0 % Fluid Eosinophils % Test Not Performed Fluid Basophils % Test Not Performed Fluid Other Cells % Test Not Performed Stool Occult Blood Negative (Negative) A. baumannii (PCR) Not Detected (Not Detect) Gladys albicans (PCR) Not Detected (Not Detect) C. glabrata (PCR) Not Detected (Not Detect) C. krusei (PCR) Not Detected (Not Detect) C. parapsilosis (PCR) Not Detected (Not Detect) C. tropicalis (PCR) Not Detected (Not Detect) Enterobacteriac sp PCR Not Detected (Not Detect) E. cloacae complex PCR Not Detected (Not Detect) Enterococcus sp PCR Not Detected (Not Detect) E. coli (PCR) Not Detected (Not Detect) H. influenzae (PCR) Not Detected (Not Detect) Klebsiella oxytoca PCR Not Detected (Not Detect) Klebsiella pneumoniae Not Detected (Not Detect) List. monocytogenes PCR Not Detected (Not Detect) N. meningitidis (PCR) Not Detected (Not Detect) Proteus species (PCR) Not Detected (Not Detect) Serratia marcescens PCR Not Detected (Not Detect) Staphylococcus sp PCR DETECTED A (Not Detect) Staph aureus (PCR) DETECTED A (Not Detect) mecA-Methicil Res Gene DETECTED A (Not Detect) Streptococcus sp PCR Not Detected (Not Detect) Group A Strep DNA Not Detected (Not Detect) Group B Strep (PCR) Not Detected (Not Detect) Strep pneumoniae (PCR) Not Detected (Not Detect) P. aeruginosa (PCR) Not Detected (Not Detect) [place]/B-Vanco Res Genes N/A (Not Detect) KPC (blaKPC) Detect PCR N/A (Not Detect) 05/20/17 Range/Units 13:10 Urine Color Yellow (Yellow) Urine Clarity Cloudy A (Clear) Urine pH 6.0 (5.0-8.0) pH Units Ur Specific [place] 1.013 (1.010-1.025) Urine Protein >=300 H (Neg-Trace) mg/dL Urine Glucose (UA) 100 H (Normal) mg/dL Urine Ketones Negative (Negative) mg/dL Urine Blood Large H (Negative) Urine Nitrite Negative (Negative) Urine Bilirubin Negative (Negative) Urine Urobilinogen Normal (Normal) mg/dL Ur Leukocyte Esterase Small H (Negative) Urine Microscopic RBC 3-5 H (0-3) per hpf Urine Microscopic WBC 30-50 H (0-3) per hpf Ur Squamous Epith Cells Many H (None-Few) per lpf Urine Bacteria None Seen (None-Few) per hpf Hyaline Casts None Seen (None-Few) per lpf Ur Culture Indicated? YES A (NO) Fluid Source Fluid Volume mL Fluid Appearance (Clear) Fluid RBC (No Ref Range) M/mcL Fld Tot Nucleated Cell (No Ref Range) TNC/mcL Fluid Seg Neutrophil % % Fld Band Neutrophil % % Fluid Lymphocytes % % Fluid Monocytes % % Fluid Eosinophils % Fluid Basophils % Fluid Other Cells % Stool Occult Blood (Negative) A. baumannii (PCR) (Not Detect) Gladys albicans (PCR) (Not Detect) C. glabrata (PCR) (Not Detect) C. krusei (PCR) (Not Detect) C. parapsilosis (PCR) (Not Detect) C. tropicalis (PCR) (Not Detect) Enterobacteriac sp PCR (Not Detect) E. cloacae complex PCR (Not Detect) Enterococcus sp PCR (Not Detect) E. coli (PCR) (Not Detect) H. influenzae (PCR) (Not Detect) Klebsiella oxytoca PCR (Not Detect) Klebsiella pneumoniae (Not Detect) List. monocytogenes PCR (Not Detect) N. meningitidis (PCR) (Not Detect) Proteus species (PCR) (Not Detect) Serratia marcescens PCR (Not Detect) Staphylococcus sp PCR (Not Detect) Staph aureus (PCR) (Not Detect) mecA-Methicil Res Gene (Not Detect) Streptococcus sp PCR (Not Detect) Group A Strep DNA (Not Detect) Group B Strep (PCR) (Not Detect) Strep pneumoniae (PCR) (Not Detect) P. aeruginosa (PCR) (Not Detect) Magnolia/B-Vanco Res Genes (Not Detect) KPC (blaKPC) Detect PCR (Not Detect) Consult Discharge Plan - Plan Referrals: Blayne Florence DO [Primary Care Provider] - 05/28/17 9:30 am (web request..05/21/2017) - Attending Attestation I examined this patient and my medical decision-making was reviewed with the AGRONOMY TEACHER/PA/Advanced Practice Nurse/Resident Physician. I agree with the documented findings, disposition and treatment plan as described except to the extent set forth below. This is an addendum to original report dictated by Georgie Diamond CNP, please refer to [facility] note for full detail. Patient is a 57-year-old gentleman with IgG nephropathy requiring peritoneal dialysis who also has a hemodialysis catheter for about 3 weeks came in to [facility] on May 20 with fever sepsis. 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 Patients blood cultures from 7/2 sets positive for MRSA and one from the temporal dialysis catheter. Catheter was removed on May 21 and repeat cultures were still positive for MRSA from the peripheral and from the catheter tip. Patient was started on vancomycin with pharmacy helping to dose. Rest of the workup on the patient was nonrevealing for any signs of septic emboli. Patients physical exam is also unremarkable with no signs of septic emboli no endocarditis stigmata no murmur. I had a discussion with the patient and told him my recommendations and he was a little bit anxious about going IV antibiotics for 2 weeks. I explained to him that he might not even have to take vancomycin daily because of his peritoneal dialysis and we might be able to do every other day and keep his Vanco trough of 15. Patients questions answered and concerns addressed. Continue vancomycin for now, monitor for drug toxicity, goal vancomycin trough around 15 well put a PICC line once the blood cultures are negative.
--- NOTE | 2017-05-23 18:07 | Nephrology Progress Note ---
Date of Encounter: 05/23/17 Time of Encounter: 09:15 - Assessment and Plan (1) ESRD on peritoneal dialysis Current Visit: Yes Status: Chronic Continue PD with sterile technique: 1.5% dextrose 2L bags q6hr. Hypokalemia persists, so will increase the KCl. 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 Anemia, likely multifactorial with infection, blood draws and of CKD. Added Aranesp dosing today. Cough: consider Pa/Lat, and albuterol nebs. Neck pains: consider looking for seeding with CTs. Discussed with the primary team. Vanco for MRSA Bactermia s/p Permacath removal. Will continue to follow with you. (2) Fever Current Visit: Yes Status: Acute Qualifiers: Fever type: unspecified Qualified Code(s): R50.9 - Fever, unspecified (3) Anemia in ESRD (end-stage renal disease) Current Visit: Yes Status: Chronic Goal Hgb is 10-11. Added NOEMI on Friday05/23/17 for weekly dosing of Aranesp. Holding off on IV iron d/t the Bactermia. (4) Neck pain Current Visit: Yes Status: Acute See above (5) MRSA bacteremia Current Visit: Yes Status: Acute Appreciate Hospitalists and ID Subjective Principal diagnosis: Fevers; Hx of ESRD Interval history: Pt was seen/examined earlier today (delayed note entry). He affirmed ongoing fatigue: has not move too much other than to the commode. He reported worsening neck pains, darlin on the left. He voiced no new issues with the PD exchanges and commented that the RN are doing a great job since yesterday afternoon. He reported having a dry cough and mentioned having a similar cough when he was last diagnosed with PNA. He voiced that he was unsure if he could ever return to work as he has been so ill recently. Objective - Vital Signs Vital signs: Vital Signs Temp Pulse Resp BP Pulse Ox 05/23/17 15:51 97.7 F 92 22 161/75 91 05/23/17 11:30 97.7 F 80 18 145/90 93 05/23/17 10:28 125/75 05/23/17 07:01 97.9 F 78 16 125/75 93 05/23/17 03:50 97.6 F 72 17 123/77 97 05/22/17 23:08 98 F 108 22 126/84 94 05/22/17 20:56 99.6 F 100 17 130/72 92 Intake and Output 05/23/17 05/23/17 05/23/17 07:59 15:59 23:59 Intake Total 150 / 150 Output Total 350 / 350 750 / 750 400 / 400 Balance -350 / -350 -600 / -600 -400 / -400 Intake: IV Fluids 100 / 100 Vancocin 500 MG In 100 / 100 Dextrose 5% (Minibag+) 100 ML 100 ML @ 100 mls/ hr IVPB ONCE ONE Rx#: [id number] Oral 50 / 50 Output: Urine 350 / 350 750 / 750 400 / 400 Other: Meal Lunch Percent of Meal Consumed 25% Total Peritoneal Dialysis 220 80 Output Weight 288.8 kg 130.2 kg Blood Glucose* 96 117 Patient Weight 05/23/17 23:59 Weight 130.2 kg - General Appearance General appearance: Present: well-developed, appears started age, obese, frail EENT: Present: ATNC, PERRL, mucous membranes moist Neck: Present: supple (though limited leftward rotation of his nect) Respiratory: Present: clear Cardiology: Present: edema (trace to 1+ ankle edema b/l), regular rate, regular rhythm, normal S1, normal S2 Additional Comments: PD catheter was C/D/I Gastrointestinal: Present: normoactive bowel sounds, no tenderness, obese Integumentary: Present: no rash, warm and dry Neurologic: Present: no asterixis, alert and oriented x3 Musculoskeletal: Present: no deformities, no erythema, no cyanosis Psychiatric: Present: mood/affect appropriate, cooperative - Lab 05/23/17 04:05 05/23/17 04:05 Most recent lab results Calcium 8.2 mg/dL (8.6-10.8) L 05/23/17 04:05 Phosphorus 4.8 mg/dL (2.3-4.7) H 05/21/17 04:03 Magnesium 2.2 mg/dL (1.6-2.6) 05/22/17 05:45 Consult Discharge Plan - Plan Referrals: Blayne Florence DO [Primary Care Provider] - 05/28/17 9:30 am (web request..05/21/2017)
[2017-05-24] MEDS: Perit. Dialysis with Dex 1.5 % 2,000 ML PERITONEAL SCH ×5 (00:22→20:41)
[2017-05-24] MEDS: *HR* Heparin 5,000 UNIT/ML VIAL SQ SCH ×2 (04:54→17:29)
[2017-05-24 06:13] LABS: Basophils % 0.1 %; Eosinophils # 0.3 K/mcL (0.0-0.6); Eosinophils % 3.7 %; Hematocrit 24.7 % (37.5-50.1); Hemoglobin 8.4 g/dL (12.9-16.9); Immature Granulocytes % 3.9 % (0-4); Immature Platelets 8.4 % (1.1-6.1); Lymphocytes # 1.8 K/mcL (0.6-4.6); Lymphocytes % 24.5 %; Mean Corpuscular Hemoglobin 30.4 pg (28.0-33.3); Mean Corpuscular Volume 89.5 fL (83.0-100.0); Mean Platelet Volume 12.6 fL (9.4-12.4); Monocytes # 0.5 K/mcL (0.0-1.3); Monocytes % 7.5 %; Platelet Count 102 K/mcL (140-400); Red Blood Count 2.76 M/mcL (4.19-5.50); Red Cell Distribution Width 13.3 % (11.5-14.5); Segmented Neutrophils % 60.3 %
[2017-05-24 06:16] LABS: Neutrophils # 4.3 K/mcL (1.6-8.9)
[2017-05-24 06:22] LABS: Calcium 8.4 mg/dL (8.6-10.8); Magnesium 1.9 mg/dL (1.6-2.6); Potassium 3.4 mEq/L (3.5-4.5)
[2017-05-24] MEDS ORDERED: Vancomycin 500 MG in D5% in Water (Mini-Bag+) 100 ML IVPB ONE (08:00)
[2017-05-24] MEDS: Insulin LISPRO 300 UNITS/3 ML VIAL SQ SCH ×3 (08:23→17:02)
[2017-05-24] MEDS: Famotidine 20 MG TABLET PO SCH (08:26)
--- NOTE | 2017-05-24 09:34 | Internal Med Progress Note ---
<Darrell Horton - Last Filed: 05/24/17 09:34> Date of Encounter: 05/24/17 Time of Encounter: 08:30 - Assessment and plan (1) Sepsis due to undetermined organism Current Visit: Yes Status: Acute Assessment and plan: Continue antibiotics. Infectious disease was consulted today. We will determine how long patient should be on vancomycin. Blood cultures were obtained today. (2) ESRD on peritoneal dialysis Current Visit: Yes Status: Chronic Assessment and plan: Patient still has high creatinine levels. We will continue to monitor. (3) Anemia in ESRD (end-stage renal disease) Current Visit: Yes Status: Chronic Assessment and plan: Patient's hemoglobin has slightly improved. His hemoglobin is currently 8.4. (4) Type 2 diabetes mellitus Current Visit: Yes Status: Chronic Assessment and plan: Sliding scale insulin, check glucose levels. Patient does not take medications at home for his diabetes. Qualifiers: Diabetes mellitus complication status: without complication Diabetes mellitus termite control servicer insulin use: without termite control servicer use Qualified Code(s): E11.9 - Type 2 diabetes mellitus without complications (5) Hypertension Current Visit: Yes Status: Chronic Assessment and plan: Continue to monitor blood pressure. Hypertension likely secondary to renal disease. Qualifiers: Hypertension type: renovascular hypertension Qualified Code(s): I15.0 - Renovascular hypertension (6) Obstructive sleep apnea Current Visit: Yes Status: Chronic Assessment and plan: Patient is on CPAP at home, continue. Patient may need a BiPAP. (7) Neck pain Current Visit: Yes Status: Acute Assessment and plan: Patient states that he has left-sided neck pain. Restricted range of motion. Described as a sharp stabbing pain, rated 10 out of 10. - Subjective Interval history: Patient was seen and examined at bedside this morning. He states that his cough and shortness of breath have both improved, but the he still feels pain in his neck. He was given Robitussin last night, he states that it was very helpful. He still feeling tenderness on the left side of his neck, although the pain in his hamstrings he feels somewhat improved. He currently denies having any fever, chills, nausea, and vomiting, or diarrhea. - Constitutional Vitals: Temp Pulse Resp BP Pulse Ox 97.6 F 71 16 150/84 95 05/24/17 08:16 05/24/17 08:16 05/24/17 08:16 05/24/17 08:16 05/24/17 05:00 General appearance: Present: cooperative, A&O X 3, morbidly obese, answers questions appropriately. Absent: no acute distress - Neck Neck exam general surgery: Absent: full ROM Additional comments: Patient still has tenderness in the left side of his neck, which restricts his full range of motion. - Respiratory Respiratory exam: Present: CTAB. Absent: accessory muscle use, chest wall tenderness, rales, rhonchi, wheezes - Cardiovascular Cardiovascular exam: Present: RRR, +S1, +S2. Absent: diastolic murmur, gallop, rubs, systolic murmur Internal Medicine: Result - Labs CBC & Chem 7: 05/24/17 05:48 05/24/17 05:48 Labs: Short CBC 05/24/17 Range/Units 05:48 WBC 7.2 (4.3-11.1) K/mcL Hgb 8.4 L (12.9-16.9) g/dL Hct 24.7 L (37.5-50.1) % Plt Count 102 L (140-400) K/mcL Neutrophils # 4.3 (1.6-8.9) K/mcL BMP 05/24/17 05:48 Sodium 141 Potassium 3.4 L Chloride 106 Carbon Dioxide 24 BUN 60 H Creatinine 8.30 H Glucose 101 H Calcium 8.4 L - ABG Interpretation ABG results: PT/INR, D-dimer PT 17.2 Seconds (9.4-12.1) H 05/21/17 08:27 - Impressions Impressions Chest X-Ray 05/23/17 09:37 IMPRESSION: No acute process. Stable cardiomegaly D/ / Mike Gonzalez MD / Mike Gonzalez MD Interpreting Provider: Mike Gonzalez MD Abdomen/Pelvis CT 05/23/17 12:30 IMPRESSION: No acute process in the chest. Subtle nodular contour of the liver with enlargement of the caudate and left hepatic lobe suggesting hepatic cirrhosis. Splenomegaly and upper abdominal varices suggesting portal venous hypertension. Abdominal and pelvic ascites that may be related to peritoneal dialysis or hepatic cirrhosis. There are two small focal hypoattenuating lesions in the body of the pancreas measuring up to 13 mm in size each that are new since 12/24/[address] Recommend further evaluation with MRCP and MRI of the abdomen with and without contrast. Multiple bilateral renal cortical lesions some of which are hyperdense and incompletely evaluated on this unenhanced CT. Many of these lesions are new since 11/22/[address] exam. Would recommend renal mass protocol MRI or CT for further evaluation. D/ / 05/23/2017 13:38:02 Doron Dumont MD / guillermina Interpreting Provider: Doron Dumont MD Cervical Spine CT 05/23/17 12:30 IMPRESSION: No acute abnormality of the cervical spine. No abnormal fluid collections. No destructive bony abnormalities. D/ / 05/23/2017 13:34:38 Trey Mitchell MD / wolfgang Interpreting Provider: Trey Mitchell MD Chest CT 05/23/17 12:30 IMPRESSION: No acute process in the chest. Subtle nodular contour of the liver with enlargement of the caudate and left hepatic lobe suggesting hepatic cirrhosis. Splenomegaly and upper abdominal varices suggesting portal venous hypertension. Abdominal and pelvic ascites that may be related to peritoneal dialysis or hepatic cirrhosis. There are two small focal hypoattenuating lesions in the body of the pancreas measuring up to 13 mm in size each that are new since 12/24/[address] Recommend further evaluation with MRCP and MRI of the abdomen with and without contrast. Multiple bilateral renal cortical lesions some of which are hyperdense and incompletely evaluated on this unenhanced CT. Many of these lesions are new since 11/22/[address] exam. Would recommend renal mass protocol MRI or CT for further evaluation. D/ / 05/23/2017 13:38:02 Doron Dumont MD / guillermina Interpreting Provider: Doron Dumont MD Consult Discharge Plan - Plan Referrals: Blayne Florence DO [Primary Care Provider] - 05/28/17 9:30 am (web request..05/21/2017) <Clarence Moore - Last Filed: 05/24/17 14:32> Date of Encounter: 05/24/17 - Assessment and plan (1) Severe sepsis due to methicillin resistant Staphylococcus aureus (MRSA) with acute organ dysfunction Current Visit: Yes Status: Acute (2) Neck pain Current Visit: Yes Status: Acute (3) MRSA bacteremia Current Visit: Yes Status: Acute (4) Hypertension Current Visit: Yes Status: Chronic Qualifiers: Hypertension type: renovascular hypertension Qualified Code(s): I15.0 - Renovascular hypertension (5) Cough Current Visit: Yes Status: Acute (6) Type 2 diabetes mellitus Current Visit: Yes Status: Chronic Qualifiers: Diabetes mellitus complication status: without complication Diabetes mellitus termite control servicer insulin use: without termite control servicer use Qualified Code(s): E11.9 - Type 2 diabetes mellitus without complications (7) Obstructive sleep apnea Current Visit: Yes Status: Chronic (8) Morbid obesity with BMI of 40.0-44.9, adult Current Visit: Yes Status: Chronic (9) Elevated CK Current Visit: Yes Status: Acute (10) Anemia in ESRD (end-stage renal disease) Current Visit: Yes Status: Chronic (11) Peritoneal dialysis status Current Visit: Yes Status: Chronic - Constitutional Vitals: Temp Pulse Resp BP Pulse Ox 97.6 F 71 16 150/84 95 05/24/17 08:16 05/24/17 08:16 05/24/17 08:16 05/24/17 08:16 05/24/17 08:30 Internal Medicine: Result - Labs CBC & Chem 7: 05/24/17 05:48 05/24/17 05:48 Labs: Short CBC 05/24/17 Range/Units 05:48 WBC 7.2 (4.3-11.1) K/mcL Hgb 8.4 L (12.9-16.9) g/dL Hct 24.7 L (37.5-50.1) % Plt Count 102 L (140-400) K/mcL Neutrophils # 4.3 (1.6-8.9) K/mcL BMP 05/24/17 05:48 Sodium 141 Potassium 3.4 L Chloride 106 Carbon Dioxide 24 BUN 60 H Creatinine 8.30 H Glucose 101 H Calcium 8.4 L - ABG Interpretation ABG results: PT/INR, D-dimer PT 17.2 Seconds (9.4-12.1) H 05/21/17 08:27 - Impressions Impressions Cervical Spine CT 05/23/17 12:30 IMPRESSION: No acute abnormality of the cervical spine. No abnormal fluid collections. No destructive bony abnormalities. D/ / 05/23/2017 13:34:38 Trey Mitchell MD / wolfgang Interpreting Provider: Trey Mitchell MD - Attending Attestation I examined this patient and my medical decision-making was reviewed with the Resident Physician on 05/24/17. I agree with the documented findings, disposition and treatment plan as described except to the extent set forth below. Mr. Rudd is currently admitted for MRSA bacteremia/CLABSI. He is moderate to high risk due to potentially for worsening infectious status. Mr Rudd is still having L side neck pain. CT negative yesterday. No midline tenderness. No further fever or chills. Less dyspneic today. No GI symptoms and no abd tenderness. Exam Alert. Comfortable at this time. Mucus membranes dry Heart reg No wheeze Abd soft and nontender L cervical area tender in muscles. No midline discomfort. I/P 1. Sepsis due to MRSA CLABSI 2. Neck pain - appears to be muscular at this time. If persists or further positive blood cultures need MRI 3. ESRD Further diagnoses and plan as above.
[2017-05-24] MEDS: *HR* OxyCODONE/APAP 5/325 TABLET PO PRN (10:10)
--- NOTE | 2017-05-24 10:12 | Nephrology Progress Note ---
Date of Encounter: 05/24/17 Time of Encounter: 09:10 - Assessment and Plan (1) ESRD on peritoneal dialysis Current Visit: Yes Status: Chronic Incidental renal cysts noted on CT abd without contrast: rec outpatient 3-[address] as some cysts were roughly Bosniak 2F (hyperdense) Continue PD with sterile technique: 1.5% dextrose 2L bags q4hr. Hypokalemia: improving, the KCl. 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 Anemia, likely multifactorial with infection, blood draws and of CKD. Added Aranesp dosing today. Cough: consider Pa/Lat, and albuterol nebs. Neck pains: improving with muscle relaxers Discussed with the primary team. Vanco for MRSA Bactermia s/p Permacath removal. Will continue to follow with you. (2) Fever Current Visit: Yes Status: Acute Qualifiers: Fever type: unspecified Qualified Code(s): R50.9 - Fever, unspecified (3) Anemia in ESRD (end-stage renal disease) Current Visit: Yes Status: Chronic Goal Hgb is 10-11. Added NOEMI on Friday05/23/17 for weekly dosing of Aranesp. Holding off on IV iron d/t the Bactermia. (4) Neck pain Current Visit: Yes Status: Acute See above (5) MRSA bacteremia Current Visit: Yes Status: Acute Appreciate Hospitalists and ID Subjective Principal diagnosis: Fevers; Hx of ESRD Interval history: Pt was seen/examined earlier today (delayed note entry). He affirmed ongoing fatigue: has not move too much other than to the commode. He reported worsening neck pains, darlin on the left. He voiced no new issues with the PD exchanges and commented that the RN are doing a great job since yesterday afternoon. He reported having a dry cough and mentioned having a similar cough when he was last diagnosed with PNA. He voiced that he was unsure if he could ever return to work as he has been so ill recently. Objective - Vital Signs Vital signs: Vital Signs Temp Pulse Resp BP Pulse Ox 05/24/17 08:16 97.6 F 71 16 150/84 05/24/17 05:00 97.6 F 86 18 132/78 95 05/24/17 04:19 20 92 07/08/17 01:09 97.6 F 71 13 150/84 92 05/24/17 00:31 98.3 F 83 16 160/84 95 05/23/17 23:45 98.2 F 83 16 160/84 95 05/23/17 19:27 97.9 F 80 18 145/82 91 05/23/17 15:51 97.7 F 92 22 161/75 91 05/23/17 11:30 97.7 F 80 18 145/90 93 05/23/17 10:28 125/75 Intake and Output 05/23/17 05/24/17 05/24/17 23:59 07:59 15:59 Output Total 700 / 700 Balance -700 / -700 Output: Urine 700 / 700 Other: Total Peritoneal Dialysis -60 -500 Output Weight 129.8 kg 129 kg Blood Glucose* 86 84 Patient Weight 05/24/17 23:59 Weight 129 kg - General Appearance Exam: General appearance: Present: well-developed, appears started age, obese, frail EENT: Present: ATNC, PERRL, mucous membranes moist Neck: Present: supple (though limited leftward rotation of his nect) Respiratory: Present: clear Cardiology: Present: edema (trace to 1+ ankle edema b/l), regular rate, regular rhythm, normal S1, normal S2 Additional Comments: PD catheter was C/D/I Gastrointestinal: Present: normoactive bowel sounds, no tenderness, obese Integumentary: Present: no rash, warm and dry Neurologic: Present: no asterixis, alert and oriented x3 Musculoskeletal: Present: no deformities, no erythema, no cyanosis Psychiatric: Present: mood/affect appropriate, cooperative - Lab 05/26/17 05:09 05/26/17 03:39 Most recent lab results Calcium 8.4 mg/dL (8.6-10.8) L 05/24/17 05:48 Phosphorus 4.8 mg/dL (2.3-4.7) H 05/21/17 04:03 Magnesium 1.9 mg/dL (1.6-2.6) 05/24/17 05:48 Consult Discharge Plan - Plan Referrals: Blayne Florence DO [Primary Care Provider] - 05/28/17 9:30 am (web request..05/21/2017) Georgie Diamond, ESTEVAN [Advanced Practice Nurse] - 06/05/17 8:30 am
[2017-05-24] MEDS: Gentamicin Oint 15 GM TUBE TP SCH ×4 (11:02→20:32)
[2017-05-24] MEDS: Lisinopril 20 MG TABLET PO SCH (17:29)
[2017-05-25] MEDS: Perit. Dialysis with Dex 1.5 % 2,000 ML PERITONEAL SCH ×5 (00:11→20:43)
[2017-05-25] MEDS: Insulin LISPRO 300 UNITS/3 ML VIAL SQ SCH ×5 (00:12→20:45)
[2017-05-25] MEDS: *HR* Heparin 5,000 UNIT/ML VIAL SQ SCH ×2 (05:13→17:28)
[2017-05-25] MEDS: Lisinopril 20 MG TABLET PO SCH (08:03)
[2017-05-25] MEDS: Gentamicin Oint 15 GM TUBE TP SCH ×4 (08:03→20:45)
[2017-05-25] MEDS: Famotidine 20 MG TABLET PO SCH (08:03)
--- NOTE | 2017-05-25 10:23 | Internal Med Progress Note ---
<Darrell Horton - Last Filed: 05/25/17 10:18> Date of Encounter: 05/25/17 Time of Encounter: 08:40 - Assessment and plan (1) MRSA bacteremia Current Visit: Yes Status: Acute Assessment and plan: MRSA line associated present on admission. Line has been removed. (2) Hypertension Current Visit: Yes Status: Chronic Assessment and plan: Hypertension likely secondary to renal disease. -Continue to monitor blood pressure. -Patient's blood pressure started to rise, with a systolic pressure in the 170s. -Patient was started back on one of his home medications. Lisinopril 20 mg. Qualifiers: Hypertension type: renovascular hypertension Qualified Code(s): I15.0 - Renovascular hypertension (3) ESRD on peritoneal dialysis Current Visit: Yes Status: Chronic Assessment and plan: Patient still has high creatinine levels. -Creatinine this morning was 8.30. -We will continue to monitor. (4) Neck pain Current Visit: Yes Status: Acute Assessment and plan: Patient states that he has left-sided neck pain. Restricted ROM. Described as a sharp stabbing pain, 10/10. -He was prescribed muscle relaxant yesterday, which patient states has improved his neck pain. (5) Anemia in ESRD (end-stage renal disease) Current Visit: Yes Status: Chronic Assessment and plan: Patient's hemoglobin has slightly improved. -His hemoglobin is currently 8.4. (6) Type 2 diabetes mellitus Current Visit: Yes Status: Chronic Assessment and plan: Sliding scale insulin, check glucose levels. Patient does not take medications at home for his diabetes. Qualifiers: Diabetes mellitus complication status: without complication Diabetes mellitus group home insulin use: without group home use Qualified Code(s): E11.9 - Type 2 diabetes mellitus without complications (7) Obstructive sleep apnea Current Visit: Yes Status: Chronic Assessment and plan: Patient is on CPAP at home, continue. Patient may need a BiPAP. - Subjective Interval history: Patient was seen and examined at bedside this morning. Patient states that the neck pain that he was experiencing yesterday has improved, but he does still feel some restriction in his range of motion. The pain in the back of his hamstrings has also improved. He states that the cough that he had 2 days ago has improved, and that the Robitussin that he was given seems to have helped. He states that he has had a lack of appetite, but this has been going on since his admission. He does not have any shortness of breath, fever, chills, nausea , vomiting, diarrhea, or abdominal pain. - Constitutional Vitals: Temp Pulse Resp BP Pulse Ox 97.7 F 75 18 158/92 98 05/25/17 07:57 05/25/17 07:57 05/25/17 07:57 05/25/17 07:57 05/25/17 08:15 General appearance: Present: cooperative, A&O X 3, morbidly obese, answers questions appropriately. Absent: no acute distress - ENT ENT exam: Present: mucous membranes moist - Neck Neck exam general surgery: Present: tenderness. Absent: full ROM Additional comments: Restriction in range of motion. Tenderness and tightness in the left side of the neck prevents full rotation and side bending. - Respiratory Respiratory exam: Absent: accessory muscle use, CTAB, rales, rhonchi Additional comments: Patient has expiratory wheezes bilaterally in all lung torres. - Cardiovascular Cardiovascular exam: Present: RRR, +S1, +S2. Absent: diastolic murmur, gallop, rubs, systolic murmur - GI/Abdominal GI/Abdominal exam: Present: normal bowel sounds, soft, no peritoneal signs. Absent: distended, tenderness Internal Medicine: Result - Labs CBC & Chem 7: 05/24/17 05:48 05/24/17 05:48 - ABG Interpretation ABG results: PT/INR, D-dimer PT 17.2 Seconds (9.4-12.1) H 05/21/17 08:27 Consult Discharge Plan - Plan Referrals: Blayne Florence DO [Primary Care Provider] - 05/28/17 9:30 am (web request..05/21/2017) <Clarence Moore - Last Filed: 05/25/17 16:43> Date of Encounter: 05/25/17 - Assessment and plan (1) CLABSI (central line-associated bloodstream infection) Current Visit: Yes Status: Acute Assessment and plan: MRSA. Present on admit. Qualifiers: Encounter type: subsequent encounter Qualified Code(s): T80.211D - Bloodstream infection due to central venous catheter, subsequent encounter (2) Severe sepsis due to methicillin resistant Staphylococcus aureus (MRSA) with acute organ dysfunction Current Visit: Yes Status: Resolved (3) Neck pain Current Visit: Yes Status: Acute (4) MRSA bacteremia Current Visit: Yes Status: Acute (5) Hypertension Current Visit: Yes Status: Chronic Qualifiers: Hypertension type: renovascular hypertension Qualified Code(s): I15.0 - Renovascular hypertension (6) Cough Current Visit: Yes Status: Resolved (7) Type 2 diabetes mellitus Current Visit: Yes Status: Chronic Qualifiers: Diabetes mellitus complication status: without complication Diabetes mellitus solutions manager insulin use: without group home use Qualified Code(s): E11.9 - Type 2 diabetes mellitus without complications (8) Obstructive sleep apnea Current Visit: Yes Status: Chronic (9) Morbid obesity with BMI of 40.0-44.9, adult Current Visit: Yes Status: Chronic (10) Elevated CK Current Visit: Yes Status: Resolved (11) Anemia in ESRD (end-stage renal disease) Current Visit: Yes Status: Chronic (12) Peritoneal dialysis status Current Visit: Yes Status: Chronic - Constitutional Vitals: Temp Pulse Resp BP Pulse Ox 97.7 F 73 16 177/94 100 05/25/17 07:57 05/25/17 16:20 05/25/17 16:20 05/25/17 16:20 05/25/17 16:20 Internal Medicine: Result - Labs CBC & Chem 7: 05/24/17 05:48 05/24/17 05:48 - ABG Interpretation ABG results: PT/INR, D-dimer PT 17.2 Seconds (9.4-12.1) H 05/21/17 08:27 - Attending Attestation I examined this patient and my medical decision-making was reviewed with the Resident Physician on 05/25/17. I agree with the documented findings, disposition and treatment plan as described except to the extent set forth below. Mr. Rudd is currently admitted for acute MRSA CLABSI. He remains moderate to high risk due to potential for worsening infectious issues. Mr. Rudd is doing a little better. He feels the Flexeril helped his neck. No fever or chills. No further cough. No abd pain. Tolerating IV abx. Exam Alert Comfortable Heart reg Mucus membranes dry Lungs no wheeze Neck less tender Abd soft I/P 1. MRSA CLABSI 2. Neck pain improving Further diagnoses and plan as above.
--- NOTE | 2017-05-25 12:30 | Nephrology Progress Note ---
Date of Encounter: 05/25/17 Time of Encounter: 12:15 - Assessment and Plan (1) ESRD on peritoneal dialysis Current Visit: Yes Status: Chronic Incidental renal cysts noted on CT abd without contrast: rec outpatient 3-[address] as some cysts were roughly Bosniak 2F (hyperdense) Continue PD with sterile technique: 1.5% dextrose 2L bags q6hr. Hypokalemia: improving, the KCl. Mag yesterday was at the goal of 2.0 Hx of SHPT: Continue Calcitriol 0.5mcg po daily. Anemia, likely multifactorial with infection, blood draws and of CKD. S/p Aranesp last week. Cough: improving. Neck pains: Improving with muscle relaxers Discussed with the primary team. Vanco for MRSA Bactermia s/p Permacath removal. For outpatient IV antibiotics, I would recommend avoiding a PICC line if possible. Consider a tunneled CVC, if needed. My colleague Dr. Caballero will be on-call starting tomorrow, and I'll plan to provide a very thorough sign-out. (2) Fever Current Visit: Yes Status: Acute Qualifiers: Fever type: unspecified Qualified Code(s): R50.9 - Fever, unspecified (3) Anemia in ESRD (end-stage renal disease) Current Visit: Yes Status: Chronic Goal Hgb is 10-11. Added NOEMI on Friday05/23/17 for weekly dosing of Aranesp. Holding off on IV iron d/t the Bactermia. (4) Neck pain Current Visit: Yes Status: Acute See above (5) MRSA bacteremia Current Visit: Yes Status: Acute Appreciate Hospitalists and ID Subjective Principal diagnosis: Fevers; Hx of ESRD Interval history: Pt was seen/examined. He reported no new problems with the PD exchanges. He denied fevers in the last 24hr. Still reporting fatigue overall but less neck pains. Objective - Vital Signs Vital signs: Vital Signs Temp Pulse Resp BP Pulse Ox 05/25/17 08:15 98 05/25/17 07:57 97.7 F 75 18 158/92 98 05/25/17 04:31 97.8 F 88 17 150/88 96 05/25/17 00:14 97.9 F 83 16 171/104 95 05/24/17 20:44 97.6 F 81 16 171/101 97 05/24/17 16:18 98.1 F 73 18 173/95 95 Intake and Output 05/24/17 05/25/17 05/25/17 23:59 07:59 15:59 Intake Total 120 / 120 Output Total 150 / 150 725 / 725 675 / 675 Balance -150 / -150 -725 / -725 -555 / -555 Intake: Oral 120 / 120 Output: Urine 150 / 150 725 / 725 675 / 675 Other: Meal Breakfast Percent of Meal Consumed 100% Total Peritoneal Dialysis -20 440 -40 Output Weight 128.4 kg 127.9 kg 127.5 kg Blood Glucose* 92 88 96 Patient Weight 05/25/17 23:59 Weight 127.5 kg - General Appearance Exam: General appearance: Present: well-developed, appears started age, obese, fatigued EENT: Present: ATNC, PERRL, mucous membranes moist Neck: Present: supple (though limited leftward rotation of his nect) Respiratory: Present: clear Cardiology: Present: edema (trace ankle edema b/l), regular rate, regular rhythm , normal S1, normal S2 Additional Comments: PD catheter was C/D/I Gastrointestinal: Present: normoactive bowel sounds, no tenderness, obese Integumentary: Present: no rash, warm and dry Neurologic: Present: no asterixis, alert and oriented x3 Musculoskeletal: Present: no deformities, no erythema, no cyanosis Psychiatric: Present: mood/affect appropriate, cooperative - Lab 05/26/17 05:09 05/26/17 03:39 Most recent lab results Calcium 8.4 mg/dL (8.6-10.8) L 05/24/17 05:48 Phosphorus 4.8 mg/dL (2.3-4.7) H 05/21/17 04:03 Magnesium 1.9 mg/dL (1.6-2.6) 05/24/17 05:48 Consult Discharge Plan - Plan Referrals: Blayne Florence DO [Primary Care Provider] - 05/28/17 9:30 am (web request..05/21/2017) Georgie Diamond V[employer]IN[employer] [Advanced Practice Nurse] - 06/05/17 8:30 am
[2017-05-25] MEDS ORDERED: Vancomycin 500 MG in D5% in Water (Mini-Bag+) 100 ML IVPB ONE (13:00)
[2017-05-26] MEDS: Perit. Dialysis with Dex 1.5 % 2,000 ML PERITONEAL SCH ×5 (00:16→20:09)
[2017-05-26 04:00] LABS: INR 1.2; Prothrombin Time 12.9 Seconds (9.4-12.1)
[2017-05-26 04:02] LABS: Calcium 8.8 mg/dL (8.6-10.8); Potassium 4.2 mEq/L (3.5-4.5)
[2017-05-26 05:28] LABS: Basophils # 0.1 K/mcL (0.0-0.2); Basophils % 0.5 %; Eosinophils # 0.4 K/mcL (0.0-0.6); Eosinophils % 3.7 %; Hematocrit 28.3 % (37.5-50.1); Hemoglobin 9.5 g/dL (12.9-16.9); Immature Granulocytes % 10.7 % (0-4); Immature Platelets 4.5 % (1.1-6.1); Lymphocytes # 2.5 K/mcL (0.6-4.6); Lymphocytes % 20.9 %; Mean Corpuscular HGB Conc 33.6 g/dL (31.6-35.5); Mean Corpuscular Hemoglobin 30.4 pg (28.0-33.3); Mean Corpuscular Volume 90.4 fL (83.0-100.0); Mean Platelet Volume 10.7 fL (9.4-12.4); Monocytes # 0.7 K/mcL (0.0-1.3); Monocytes % 5.7 %; Red Blood Count 3.13 M/mcL (4.19-5.50); Red Cell Distribution Width 13.1 % (11.5-14.5); Segmented Neutrophils % 58.5 %
[2017-05-26 05:30] LABS: Platelet Count 227 K/mcL (140-400)
[2017-05-26] MEDS: *HR* Heparin 5,000 UNIT/ML VIAL SQ SCH ×2 (05:48→19:00)
[2017-05-26 05:53] LABS: Platelet Estimate Normal (Normal); Reactive Lymphocytes Present (Not Present)
[2017-05-26] MEDS: Insulin LISPRO 300 UNITS/3 ML VIAL SQ SCH ×3 (06:59→17:11)
[2017-05-26] MEDS: Famotidine 20 MG TABLET PO SCH (08:28)
[2017-05-26] MEDS: Cholecalciferol (D-3) 1,000 UNIT TABLET PO SCH (08:28)
[2017-05-26] MEDS: Lisinopril 20 MG TABLET PO SCH (08:28)
[2017-05-26] MEDS: Gentamicin Oint 15 GM TUBE TP SCH ×3 (08:28→16:20)
--- NOTE | 2017-05-26 08:45 | Internal Med Progress Note ---
<Darrell Horton - Last Filed: 05/26/17 08:43> Date of Encounter: 05/26/17 Time of Encounter: 08:30 - Assessment and plan (1) MRSA bacteremia Current Visit: Yes Status: Acute Assessment and plan: MRSA line associated present on admission. -Line has been removed. -Initial blood cultures revealed MRSA. -Subsequent blood culture was negative. (2) Hypertension Current Visit: Yes Status: Chronic Assessment and plan: Hypertension likely secondary to renal disease. -Continue to monitor blood pressure. -Patient's blood pressure started to rise, with a systolic pressure in the 170s. -Patient was started back on one of his home medications. Lisinopril 20 mg. -Blood pressure today is 158/88. May resume a second home blood pressure medication. Patient takes 4 different blood pressure medications at home. Qualifiers: Hypertension type: renovascular hypertension Qualified Code(s): I15.0 - Renovascular hypertension (3) ESRD on peritoneal dialysis Current Visit: Yes Status: Chronic Assessment and plan: Patient still has high creatinine levels. -Creatinine this morning was 8.15. -Continue to monitor. (4) Neck pain Current Visit: Yes Status: Acute Assessment and plan: Patient states that he has left-sided neck pain. -Restricted ROM. -Described as a sharp stabbing pain, 10/10. -He was prescribed muscle relaxant yesterday, which patient states has improved his neck pain. -Patient was given Flexeril a few days ago, which patient states was much more helpful than the Percocet he was given for his neck pain. -Resume Flexeril 10 mg by mouth twice a day as needed. (5) Anemia in ESRD (end-stage renal disease) Current Visit: Yes Status: Chronic Assessment and plan: Patient's hemoglobin has slightly improved. Patient has chronic anemia, most likely due to renal disease. -Patient states that his baseline hemoglobin is approximately 10. -His hemoglobin has been stable in the hospital, and has increased in the last 2 days. -His hemoglobin is currently 9.5. (6) Type 2 diabetes mellitus Current Visit: Yes Status: Chronic Assessment and plan: Sliding scale insulin, check glucose levels. Patient does not take medications at home for his diabetes. Qualifiers: Diabetes mellitus complication status: without complication Diabetes mellitus technician terminal and repeater insulin use: without long-term use Qualified Code(s): E11.9 - Type 2 diabetes mellitus without complications (7) Obstructive sleep apnea Current Visit: Yes Status: Chronic Assessment and plan: Patient is on CPAP at home, continue. -Patient may need a BiPAP. - Subjective Interval history: Patient was seen and examined at bedside this morning. He states that the pain in his neck has improved somewhat since his admission, although he still feels some pain in his neck when he attempts to turn from [id number]. He states that the pain that was in his hamstrings has improved. He denies having any shortness of breath or cough. He states the Robitussin that he was given has helped his cough. He still has diminished appetite, but this has been an issue since his admission. He denies having fever, chills, nausea, or vomiting. - Constitutional Vitals: Temp Pulse Resp BP Pulse Ox 97.8 F 80 18 158/88 96 05/26/17 06:47 05/26/17 06:47 05/26/17 06:47 05/26/17 06:47 05/26/17 05:05 General appearance: Present: cooperative, A&O X 3, morbidly obese, answers questions appropriately. Absent: no acute distress - ENT ENT exam: Present: mucous membranes moist - Respiratory Respiratory exam: Present: CTAB. Absent: accessory muscle use, rales, rhonchi, wheezes Additional comments: Patient initially had wheezing, but today his lung sounds are clear. No wheezing crackles rales or rhonchi were appreciated on physical exam. - Cardiovascular Cardiovascular exam: Present: RRR, +S1, +S2. Absent: diastolic murmur, gallop, rubs, systolic murmur - GI/Abdominal GI/Abdominal exam: Present: normal bowel sounds, soft, no peritoneal signs. Absent: distended, tenderness - Expanded Lower Extremities Exam Upper Leg exam: Present: tenderness (Patient has tenderness in his hamstring area, although has greatly improved since his admission.) - Psychiatric Psychiatric exam: Present: normal affect, normal mood Internal Medicine: Result - Labs CBC & Chem 7: 05/26/17 05:09 05/26/17 03:39 Labs: Short CBC 05/26/17 Range/Units 05:09 WBC 12.0 H D (4.3-11.1) K/mcL Hgb 9.5 L (12.9-16.9) g/dL Hct 28.3 L (37.5-50.1) % Plt Count 227 D (140-400) K/mcL Neutrophils # 7.0 (1.6-8.9) K/mcL BMP 05/26/17 03:39 Sodium 139 Potassium 4.2 Chloride 107 Carbon Dioxide 23 BUN 57 H Creatinine 8.15 H Glucose 112 H Calcium 8.8 - ABG Interpretation ABG results: PT/INR, D-dimer PT 12.9 Seconds (9.4-12.1) H 05/26/17 03:39 - Impressions Impressions Abdomen/Pelvis CT 05/23/17 12:30 IMPRESSION: No acute process in the chest. Subtle nodular contour of the liver with enlargement of the caudate and left hepatic lobe suggesting hepatic cirrhosis. Splenomegaly and upper abdominal varices suggesting portal venous hypertension. Abdominal and pelvic ascites that may be related to peritoneal dialysis or hepatic cirrhosis. There are two small focal hypoattenuating lesions in the body of the pancreas measuring up to 13 mm in size each that are new since 12/24/[address] Recommend further evaluation with MRCP and MRI of the abdomen with and without contrast. Multiple bilateral renal cortical lesions some of which are hyperdense and incompletely evaluated on this unenhanced CT. Many of these lesions are new since 11/22/[address] exam. Would recommend renal mass protocol MRI or CT for further evaluation. D/ / 05/23/2017 13:38:02 Doron Dumont MD / guillermina Interpreting Provider: Doron Dumont MD Chest CT 05/23/17 12:30 IMPRESSION: No acute process in the chest. Subtle nodular contour of the liver with enlargement of the caudate and left hepatic lobe suggesting hepatic cirrhosis. Splenomegaly and upper abdominal varices suggesting portal venous hypertension. Abdominal and pelvic ascites that may be related to peritoneal dialysis or hepatic cirrhosis. There are two small focal hypoattenuating lesions in the body of the pancreas measuring up to 13 mm in size each that are new since 12/24/[address] Recommend further evaluation with MRCP and MRI of the abdomen with and without contrast. Multiple bilateral renal cortical lesions some of which are hyperdense and incompletely evaluated on this unenhanced CT. Many of these lesions are new since 11/22/[address] exam. Would recommend renal mass protocol MRI or CT for further evaluation. D/ / 05/23/2017 13:38:02 Doron Dumont MD / guillermina Interpreting Provider: Doron Dumont MD Consult Discharge Plan - Plan Referrals: Blayne Florence DO [Primary Care Provider] - 06/04/17 9:30 am (web request..05/21/2017) Georgie Diamond CNP [Advanced Practice Nurse] - 06/05/17 8:30 am Prescriptions: Vancomycin [Vancocin] 500 each IV DAILY #11 vial <Clarence Moore - Last Filed: 05/26/17 16:23> Date of Encounter: 05/26/17 - Assessment and plan (1) CLABSI (central line-associated bloodstream infection) Current Visit: Yes Status: Acute Qualifiers: Encounter type: subsequent encounter Qualified Code(s): T80.211D - Bloodstream infection due to central venous catheter, subsequent encounter (2) Severe sepsis due to methicillin resistant Staphylococcus aureus (MRSA) with acute organ dysfunction Current Visit: Yes Status: Resolved (3) Neck pain Current Visit: Yes Status: Acute (4) MRSA bacteremia Current Visit: Yes Status: Resolved (5) Hypertension Current Visit: Yes Status: Chronic Qualifiers: Hypertension type: renovascular hypertension Qualified Code(s): I15.0 - Renovascular hypertension (6) Cough Current Visit: Yes Status: Resolved (7) Type 2 diabetes mellitus Current Visit: Yes Status: Chronic Qualifiers: Diabetes mellitus complication status: without complication Diabetes mellitus long-term insulin use: without long-term use Qualified Code(s): E11.9 - Type 2 diabetes mellitus without complications (8) Obstructive sleep apnea Current Visit: Yes Status: Chronic (9) Morbid obesity with BMI of 40.0-44.9, adult Current Visit: Yes Status: Chronic (10) Elevated CK Current Visit: Yes Status: Resolved (11) Anemia in ESRD (end-stage renal disease) Current Visit: Yes Status: Chronic (12) Peritoneal dialysis status Current Visit: Yes Status: Chronic - Constitutional Vitals: Temp Pulse Resp BP Pulse Ox 97.8 F 85 18 164/98 96 05/26/17 06:47 05/26/17 11:01 05/26/17 11:01 05/26/17 11:01 05/26/17 11:01 Internal Medicine: Result - Labs CBC & Chem 7: 05/26/17 05:09 05/26/17 03:39 Labs: Short CBC 05/26/17 Range/Units 05:09 WBC 12.0 H D (4.3-11.1) K/mcL Hgb 9.5 L (12.9-16.9) g/dL Hct 28.3 L (37.5-50.1) % Plt Count 227 D (140-400) K/mcL Neutrophils # 7.0 (1.6-8.9) K/mcL BMP 05/26/17 03:39 Sodium 139 Potassium 4.2 Chloride 107 Carbon Dioxide 23 BUN 57 H Creatinine 8.15 H Glucose 112 H Calcium 8.8 - ABG Interpretation ABG results: PT/INR, D-dimer PT 12.9 Seconds (9.4-12.1) H 05/26/17 03:39 - Impressions Impressions Abdomen/Pelvis CT 05/23/17 12:30 IMPRESSION: No acute process in the chest. Subtle nodular contour of the liver with enlargement of the caudate and left hepatic lobe suggesting hepatic cirrhosis. Splenomegaly and upper abdominal varices suggesting portal venous hypertension. Abdominal and pelvic ascites that may be related to peritoneal dialysis or hepatic cirrhosis. There are two small focal hypoattenuating lesions in the body of the pancreas measuring up to 13 mm in size each that are new since 12/24/[address] Recommend further evaluation with MRCP and MRI of the abdomen with and without contrast. Multiple bilateral renal cortical lesions some of which are hyperdense and incompletely evaluated on this unenhanced CT. Many of these lesions are new since 11/22/[address] exam. Would recommend renal mass protocol MRI or CT for further evaluation. D/ / 05/23/2017 13:38:02 Doron Dumont MD / guillermina Interpreting Provider: Doron Dumont MD Chest CT 05/23/17 12:30 IMPRESSION: No acute process in the chest. Subtle nodular contour of the liver with enlargement of the caudate and left hepatic lobe suggesting hepatic cirrhosis. Splenomegaly and upper abdominal varices suggesting portal venous hypertension. Abdominal and pelvic ascites that may be related to peritoneal dialysis or hepatic cirrhosis. There are two small focal hypoattenuating lesions in the body of the pancreas measuring up to 13 mm in size each that are new since 12/24/[address] Recommend further evaluation with MRCP and MRI of the abdomen with and without contrast. Multiple bilateral renal cortical lesions some of which are hyperdense and incompletely evaluated on this unenhanced CT. Many of these lesions are new since 11/22/[address] exam. Would recommend renal mass protocol MRI or CT for further evaluation. D/ / 05/23/2017 13:38:02 Doron Dumont MD / guillermina Interpreting Provider: Doron Dumont MD - Attending Attestation Please see discharge summary of same date.
[2017-05-26] MEDS: NIFEdipine XL (24 HR) 60 MG TAB.ER.24 PO SCH (11:05)
--- NOTE | 2017-05-26 11:27 | Infectious Disease Progress No ---
Date of Encounter: 05/26/17 Time of Encounter: 11:25 - Assessment and Plan (1) Severe sepsis due to methicillin resistant Staphylococcus aureus (MRSA) with acute organ dysfunction Current Visit: Yes Status: Resolved The patient had four SIRS criteria plus lactic acidosis on admission. Secondary to bacteremia and TDC infection. Improved. The patient has been afebrile. Tachycardia, tachypnea, and bandemia has resolved. His WBC is up a little this morning, but clinically, the patient is improved. Blood cultures drawn from a peripheral stick 05/20/17 are positive 2/2 sets for MRSA. Blood cultures drawn from the TDC 05/20/17 are positive 1/2 sets. Repeat blood cultures x 2 drawn 05/24/17 are NGTD. (2) MRSA bacteremia Current Visit: Yes Status: Resolved Causative organism: MRSA. Source likely the temporary dialysis catheter, which was removed 05/21/17. Dialysis catheter tip culture was positive for MRSA as well. Uncomplicated. The patient has no indwelling hardware, lines, or evidence of septic emboli. The patient has one major and one minor Modified Mata's criteria. BRYAN completed 05/22/17 was negative for vegetations. Low index of suspicion for IE. Repeat blood cultures x 2 sets drawn 05/24/17 are NGTD. Continue Vancomycin IV. Pharmacy to dose. Goal trough approximately 15. Vanc trough yesterday was 17.1. Duration of treatment depends on the clinical picture, but likely 2 weeks from the first set of negative blood cultures. Treat through 06/06/17. Okay to consult VAT for line insertion. The patient cannot have a PICC line due to his ESRD. Would recommend a tunneled PICC, but if that is not an option, can do either a midline or EPIV. 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 Will discuss with the VAT. Monitor renal function and for drug toxicity and dose-adjust antibiotics. Continue contact precautions per protocol. Will need weekly labs every Friday for the duration of treatment: CBC, BMP, Vanc trough. Weekly EPIV care per protocol. Follow up with ID 06/05/17 at 0830. (3) CLABSI (central line-associated bloodstream infection) Current Visit: Yes Status: Acute Source: left upper chest temporary dialysis catheter. TDC removed 05/21/17. Catheter tip culture positive for MRSA. Continue antibiotics as above. Qualifiers: Encounter type: subsequent encounter Qualified Code(s): T80.211D - Bloodstream infection due to central venous catheter, subsequent encounter (4) Lactic acidosis Current Visit: Yes Status: Acute Likely secondary to sepsis. Resolved. (5) Neck pain Current Visit: Yes Status: Acute Likely musculoskeltal in origin. CT of the C-spine negative for infectious etiology to explain the patient's pain. Pain management per the primary team. (6) Elevated CK Current Visit: Yes Status: Resolved Etiology unclear, but trending down. Continue to trend. (7) Status post cholecystectomy Current Visit: Yes Status: Resolved Status post lap cholecystectomy 04/11/[address] Jean-Baptiste. Patient states he has done well post-op and has been back to work. States he did notice one of the incisions was a little red, but states he bumped this area several times when he is at work. He denies tenderness, drainage, or pain. (8) Anemia in ESRD (end-stage renal disease) Current Visit: Yes Status: Chronic Hgb improved to 9.5 this morning. No evidence of active bleeding. Management per the nephrology and primary team. (9) Obstructive sleep apnea Current Visit: Yes Status: Chronic (10) Peritoneal dialysis status Current Visit: Yes Status: Chronic Follows with [facility] - Dr. Rosales. Nephrology consulted and following. No evidence of peritonitis. PD catheter without erythema, warmth, or tenderness. PD fluid with TNC 66 and culture negative. (11) Type 2 diabetes mellitus Current Visit: Yes Status: Chronic Qualifiers: Diabetes mellitus complication status: without complication Diabetes mellitus fdc insulin use: without middle or intermediate school principal use Qualified Code(s): E11.9 - Type 2 diabetes mellitus without complications - Subjective Interval history: Patient seen and examined. We can attribute. No acute events noted. Patient states that overall he feels well. Denies any fevers or chills or rigors. Denies any headache and states that overall his neck pain is improved. He denies any chest pain, shortness of breath, or cough. He denies any nausea, vomiting, diarrhea, constipation. Does report a large loose stool this morning. He denies any abdominal pain or urinary complaints. He states that his peritoneal dialysis is going well. He denies any oral thrush or new skin lesions. He denies pain in his extremities or his back at this time. Infect Dis PN-Objective Data - Labs CBC & Chem 7: 05/26/17 05:09 05/26/17 03:39 Labs: Laboratory Results - last 24 hr 05/25/17 05/25/17 05/25/17 07:04 11:22 15:31 WBC RBC Hgb Hct MCV MCH MCHC RDW Plt Count MPV Immature Gran % Seg Neutrophils % Lymphocytes % Monocytes % Eosinophils % Basophils % Neutrophils # Lymphocytes # Monocytes # Eosinophils # Basophils # Reactive Lymphocytes Platelet Estimate Immature Plt Fraction PT INR Sodium Potassium Chloride Carbon Dioxide BUN Creatinine Est GFR ( Amer) Est GFR (Non-Af Amer) BUN/Creatinine Ratio Glucose POC Glucose 88 96 H 122 H Calculated Osmolality Calcium 05/26/17 05/26/17 05/26/17 03:39 03:39 05:09 WBC 12.0 H D RBC 3.13 L Hgb 9.5 L Hct 28.3 L MCV 90.4 MCH 30.4 MCHC 33.6 RDW 13.1 Plt Count 227 D MPV 10.7 Immature Gran % 10.7 H Seg Neutrophils % 58.5 Lymphocytes % 20.9 Monocytes % 5.7 Eosinophils % 3.7 Basophils % 0.5 Neutrophils # 7.0 Lymphocytes # 2.5 Monocytes # 0.7 Eosinophils # 0.4 Basophils # 0.1 Reactive Lymphocytes Present A Platelet Estimate Normal Immature Plt Fraction 4.5 PT 12.9 H INR 1.2 Sodium 139 Potassium 4.2 Chloride 107 Carbon Dioxide 23 BUN 57 H Creatinine 8.15 H Est GFR ( Amer) 9 L Est GFR (Non-Af Amer) 7 L BUN/Creatinine Ratio 7 Glucose 112 H POC Glucose Calculated Osmolality 305 H Calcium 8.8 Cultures: Cultures 05/20/17 15:45 Blood Culture - Final Central Venous Catheter No growth. 05/24/17 05:43 Blood Culture - Preliminary Peripheral Venipuncture No growth. 05/24/17 05:48 Blood Culture - Preliminary Peripheral Venipuncture No growth. 05/20/17 15:45 Blood Culture - Final Central Venous Catheter Methicillin Resistant S.aureus 05/21/17 12:44 Catheter Tip Culture - Final Intravenous or Arterial Cath Methicillin Resistant S.aureus 05/20/17 17:45 Body Fluid Culture - Final Peritoneal Fluid 05/20/17 13:10 Urine Culture - Final Urine,Clean Catch No pathogens isolated. 05/21/17 01:25 Influenza Types A,B Antigen (CHRIS) - Final Nasopharyngeal Serology 05/20/17 05/20/17 05/20/17 Range/Units 17:45 16:55 15:45 Urine Color (Yellow) Urine Clarity (Clear) Urine pH (5.0-8.0) pH Units Ur Specific Rainier (1.010-1.025) Urine Protein (Neg-Trace) mg/dL Urine Glucose (UA) (Normal) mg/dL Urine Ketones (Negative) mg/dL Urine Blood (Negative) Urine Nitrite (Negative) Urine Bilirubin (Negative) Urine Urobilinogen (Normal) mg/dL Ur Leukocyte Esterase (Negative) Urine Microscopic RBC (0-3) per hpf Urine Microscopic WBC (0-3) per hpf Ur Squamous Epith Cells (None-Few) per lpf Urine Bacteria (None-Few) per hpf Hyaline Casts (None-Few) per lpf Ur Culture Indicated? (NO) Fluid Source Peritoneal fluid Fluid Volume 40 mL Fluid Appearance Clear (Clear) Fluid RBC < 0.002 (No Ref Range) M/mcL Fld Tot Nucleated Cell 66 (No Ref Range) TNC/mcL Fluid Seg Neutrophil % 90.0 % Fld Band Neutrophil % 4.0 % Fluid Lymphocytes % 1.0 % Fluid Monocytes % 5.0 % Fluid Eosinophils % Test Not Performed Fluid Basophils % Test Not Performed Fluid Other Cells % Test Not Performed Stool Occult Blood Negative (Negative) A. baumannii (PCR) Not Detected (Not Detect) Gladys albicans (PCR) Not Detected (Not Detect) C. glabrata (PCR) Not Detected (Not Detect) C. krusei (PCR) Not Detected (Not Detect) C. parapsilosis (PCR) Not Detected (Not Detect) C. tropicalis (PCR) Not Detected (Not Detect) Enterobacteriac sp PCR Not Detected (Not Detect) E. cloacae complex PCR Not Detected (Not Detect) Enterococcus sp PCR Not Detected (Not Detect) E. coli (PCR) Not Detected (Not Detect) H. influenzae (PCR) Not Detected (Not Detect) Klebsiella oxytoca PCR Not Detected (Not Detect) Klebsiella pneumoniae Not Detected (Not Detect) List. monocytogenes PCR Not Detected (Not Detect) N. meningitidis (PCR) Not Detected (Not Detect) Proteus species (PCR) Not Detected (Not Detect) Serratia marcescens PCR Not Detected (Not Detect) Staphylococcus sp PCR DETECTED A (Not Detect) Staph aureus (PCR) DETECTED A (Not Detect) mecA-Methicil Res Gene DETECTED A (Not Detect) Streptococcus sp PCR Not Detected (Not Detect) Group A Strep DNA Not Detected (Not Detect) Group B Strep (PCR) Not Detected (Not Detect) Strep pneumoniae (PCR) Not Detected (Not Detect) P. aeruginosa (PCR) Not Detected (Not Detect) Magnolia/B-Vanco Res Genes N/A (Not Detect) KPC (blaKPC) Detect PCR N/A (Not Detect) 05/20/17 Range/Units 13:10 Urine Color Yellow (Yellow) Urine Clarity Cloudy A (Clear) Urine pH 6.0 (5.0-8.0) pH Units Ur Specific Rainier 1.013 (1.010-1.025) Urine Protein >=300 H (Neg-Trace) mg/dL Urine Glucose (UA) 100 H (Normal) mg/dL Urine Ketones Negative (Negative) mg/dL Urine Blood Large H (Negative) Urine Nitrite Negative (Negative) Urine Bilirubin Negative (Negative) Urine Urobilinogen Normal (Normal) mg/dL Ur Leukocyte Esterase Small H (Negative) Urine Microscopic RBC 3-5 H (0-3) per hpf Urine Microscopic WBC 30-50 H (0-3) per hpf Ur Squamous Epith Cells Many H (None-Few) per lpf Urine Bacteria None Seen (None-Few) per hpf Hyaline Casts None Seen (None-Few) per lpf Ur Culture Indicated? YES A (NO) Fluid Source Fluid Volume mL Fluid Appearance (Clear) Fluid RBC (No Ref Range) M/mcL Fld Tot Nucleated Cell (No Ref Range) TNC/mcL Fluid Seg Neutrophil % % Fld Band Neutrophil % % Fluid Lymphocytes % % Fluid Monocytes % % Fluid Eosinophils % Fluid Basophils % Fluid Other Cells % Stool Occult Blood (Negative) A. baumannii (PCR) (Not Detect) Gladys albicans (PCR) (Not Detect) C. glabrata (PCR) (Not Detect) C. krusei (PCR) (Not Detect) C. parapsilosis (PCR) (Not Detect) C. tropicalis (PCR) (Not Detect) Enterobacteriac sp PCR (Not Detect) E. cloacae complex PCR (Not Detect) Enterococcus sp PCR (Not Detect) E. coli (PCR) (Not Detect) H. influenzae (PCR) (Not Detect) Klebsiella oxytoca PCR (Not Detect) Klebsiella pneumoniae (Not Detect) List. monocytogenes PCR (Not Detect) N. meningitidis (PCR) (Not Detect) Proteus species (PCR) (Not Detect) Serratia marcescens PCR (Not Detect) Staphylococcus sp PCR (Not Detect) Staph aureus (PCR) (Not Detect) mecA-Methicil Res Gene (Not Detect) Streptococcus sp PCR (Not Detect) Group A Strep DNA (Not Detect) Group B Strep (PCR) (Not Detect) Strep pneumoniae (PCR) (Not Detect) P. aeruginosa (PCR) (Not Detect) Magnolia/B-Vanco Res Genes (Not Detect) KPC (blaKPC) Detect PCR (Not Detect) - Impressions Impressions Abdomen/Pelvis CT 05/23/17 12:30 IMPRESSION: No acute process in the chest. Subtle nodular contour of the liver with enlargement of the caudate and left hepatic lobe suggesting hepatic cirrhosis. Splenomegaly and upper abdominal varices suggesting portal venous hypertension. Abdominal and pelvic ascites that may be related to peritoneal dialysis or hepatic cirrhosis. There are two small focal hypoattenuating lesions in the body of the pancreas measuring up to 13 mm in size each that are new since 12/24/[address] Recommend further evaluation with MRCP and MRI of the abdomen with and without contrast. Multiple bilateral renal cortical lesions some of which are hyperdense and incompletely evaluated on this unenhanced CT. Many of these lesions are new since 11/22/[address] exam. Would recommend renal mass protocol MRI or CT for further evaluation. D/ / 05/23/2017 13:38:02 Doron Dumont MD / guillermina Interpreting Provider: Doron Dumont MD Chest CT 05/23/17 12:30 IMPRESSION: No acute process in the chest. Subtle nodular contour of the liver with enlargement of the caudate and left hepatic lobe suggesting hepatic cirrhosis. Splenomegaly and upper abdominal varices suggesting portal venous hypertension. Abdominal and pelvic ascites that may be related to peritoneal dialysis or hepatic cirrhosis. There are two small focal hypoattenuating lesions in the body of the pancreas measuring up to 13 mm in size each that are new since 12/24/[address] Recommend further evaluation with MRCP and MRI of the abdomen with and without contrast. Multiple bilateral renal cortical lesions some of which are hyperdense and incompletely evaluated on this unenhanced CT. Many of these lesions are new since 11/22/[address] exam. Would recommend renal mass protocol MRI or CT for further evaluation. D/ / 05/23/2017 13:38:02 Doron Dumont MD / guillermina Interpreting Provider: Doron Dumont MD Exam - Constitutional Vitals: Temp Pulse Resp BP Pulse Ox 97.8 F 85 18 164/98 96 05/26/17 06:47 05/26/17 11:01 05/26/17 11:01 05/26/17 11:01 05/26/17 11:01 General appearance: cooperative, morbidly obese, no acute distress - Head Head exam: Present: atraumatic, normal inspection, normocephalic - Eye Eye exam: Present: EOMI, normal appearance, PERRL Pupils: Present: normal accommodation - ENT ENT exam: Present: mucous membranes moist - Neck Neck exam: Present: normal inspection, tenderness (Left posterior lateral neck.) - Respiratory Respiratory exam: Present: CTAB. Absent: rales, respiratory distress, rhonchi, wheezes - Cardiovascular Cardiovascular exam: Present: RRR, +S1, +S2 - GI/Abdominal GI/Abdominal exam: Present: distended (Obese), normal bowel sounds, soft. Absent: tenderness Additional comments: Peritoneal dialysis catheter noted to the left lower quadrant with dressing clean, dry, and intact. - Extremities Exam Extremities exam: Present: normal inspection. Absent: joint swelling, pedal edema, tenderness Additional comments: No endocarditis stigmata noted. - Neurological Exam Neurological exam: Present: alert, oriented X3, no focal deficits - Psychiatric Psychiatric exam: Present: normal affect, normal mood - Skin Skin exam: Present: dry, intact, normal color, warm Consult Discharge Plan - Plan Referrals: Blayne Florence DO [Primary Care Provider] - 06/04/17 9:30 am (web request..05/21/2017) Georgie Diamond, [employer] [Advanced Practice Nurse] - 06/05/17 8:30 am - Attending Attestation I examined this patient and my medical decision-making was reviewed with the CONTINUOUS IMPROVEMENT ANALYST/PA/Advanced Practice Nurse/Resident Physician. I agree with the documented findings, disposition and treatment plan as described except to the extent set forth below.
[2017-05-26] MEDS ORDERED: Vancomycin 500 MG in D5% in Water (Mini-Bag+) 100 ML IVPB ONE (12:07)
--- NOTE | 2017-05-26 14:58 | Discharge Summary ---
<Darrell Horton - Last Filed: 05/26/17 14:56> Date of Encounter: 05/26/17 Time of Encounter: 08:30 - Discharge Diagnosis (1) MRSA bacteremia Priority: Primary Status: Resolved Comments: MRSA line associated present on admission. -Line was removed. -Initial blood cultures revealed MRSA. -Subsequent blood culture was negative. (2) Hypertension Priority: Secondary Status: Chronic Comments: Hypertension likely secondary to renal disease. -Continue to monitor blood pressure. -Patient's blood pressure started to rise, with a systolic pressure in the 170s. -Patient was started back on 2 of his home medications: Lisinopril and Nifedipine. Patient takes 4 different blood pressure medications at home. -Blood pressure today is 158/88. Qualifiers: Hypertension type: renovascular hypertension Qualified Code(s): I15.0 - Renovascular hypertension (3) ESRD on peritoneal dialysis Priority: Secondary Status: Chronic Comments: Patient still has high creatinine levels. -Creatinine this morning was 8.15. -Continue to monitor. 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 use Qualified Code(s): E11.9 - Type 2 diabetes mellitus without complications (7) Obstructive sleep apnea Priority: Secondary Status: Chronic - Discharge Medications Prescriptions: Vancomycin [Vancocin] 500 each IV DAILY #11 vial Home Medications: Cholecalciferol (Vitamin D3) [Vitamin D3] 50,000 unit PO MO 01/17/17 [History] Furosemide [Lasix] 40 mg PO BID 01/17/17 [History] Metoprolol [Lopressor] 100 mg PO BID 01/17/17 [History] NIFEdipine [Nifedical Xl] 60 mg PO DAILY 01/17/17 [History] Potassium Chloride [K-Tab ER] 10 meq PO DAILY 04/11/17 [History] Allopurinol [Zyloprim 100 MG] 100 mg PO DAILY 05/20/17 [History] Calcitriol 0.5 mcg PO DAILY 05/20/17 [History] Lisinopril [Zestril] 20 mg PO DAILY 05/20/17 [History] Vancomycin [Vancocin] 500 each IV DAILY #11 vial 05/26/17 [Rx] Allergies/Adverse Reactions: Allergies No Known Allergies Allergy (Verified 05/20/17 05:50) Date of admission: 05/20/17 08:48 Primary care physician: Blayne Florence, Consults: 05/21/17 08:10 Consult to Interventional Radiology [CONS] Routine Consulting Provider: Radiology Interventional Cols Reason for Consult: Please evaluate for more urgent Permacath removal d/t MRSA bacteremia. He does not take Plavix or ASA. Thank you. Call Completed: Yes 05/23/17 09:41 Consult to Infectious Diseases [CONS] Routine Consulting Provider: Infectious Disease [facility] Reason for Consult: Patient has MRSA Bacteremia. Need to know how long he will need to be on Vancomycin. Call Completed: Yes 05/26/17 09:02 Consult to PICC team [Consult to Invasive Line Access Team] [CONS] Routine Reason for Consult: Patient needs IV antibiotic through June 06. Line Type: EPIV Discharging clinician: Darrell Horton ( ) Anticipated date of discharge: 05/26/17 - Patient Status Disposition: Home, Self-Care Condition: Fair Overall status at discharge: patient is progressing back to baseline - Discharge Instructions Follow Up With: Blayne Florence DO [Primary Care Provider] - 06/04/17 9:30 am (web request..05/21/2017) Georgie Diamond JOINTER MACHINE OPERATOR [Advanced Practice Nurse] - 06/05/17 8:30 am - Diet and Activity Activity: increase activity as tolerated Diet: advance to your usual diet Hospital course: Mr. Rudd is a 47 year old male who presented to the ED with fever and SOB. He had developed diarrhea on Friday night. His symptoms have gradually worsened since then. He admits nausea and several episodes of vomiting. He denied any blood in stool. He states that his highest temperature was 104F. He had seen his mechanical systems designer the day prior, was given Tylenol, but this did not help. Patient had not completed his PD in the morning, and as a result he still had some fluid in his abdomen. He had recently undergone a laparoscopic cholecystectomy, and he states that one of his port sites seem to have become infected. Evaluation in the ED revealed sepsis with fever, elevated lactic acid , and hypotension. Patient was given fluid bolus and his BP improved. EKG revealed sinus tachycardia. CXR revealed no acute process. Troponin was slightly elevated at 0.12. Patient was placed on broad-spectrum antibiotics including Zosyn and renally dosed vancomycin. It was suspected that the source of patient's sepsis was his Permacath, which was subsequently removed. Nephrology was consulted, who ordered his PD to continue. Blood cultures were drawn, revealing the patient had MRSA bacteremia. His catheter tip culture also revealed MRSA. When this was determined, Zosyn was stopped and antibiotic spectrum was narrowed to just vancomycin. BRYAN was performed to rule out possibility of infective endocarditis. BRYAN showed no acute findings. CT scan was ordered to rule out the possibility of bacterial seeding throughout the body. CT scan did not reveal any signs of bacterial seeding. During his stay in the hospital, patient complained of pain in his hamstrings and the left-side of his neck. He states that this pain started shortly after his arrival, and he describes it as a sharp stabbing pain, 10/10, aggravated by turning his head. Percocet was minimally effective, so patient was started on Flexeril, which was much more effective in relieving his pain. He also had a decrease in appetite during his stay. During his early days in the hospital, patient developed a dry cough. CXR was ordered to rule out pneumonia. No acute process was seen. Patient was given Robitussin for his cough, which was very effective. IR advised not to remove patient's tunnel PICC line, due to his poor vascular access. Patient is currently receiving 500 mg of vancomycin each day. Patient' s first negative bblood culture was on 05/24/17. Patient's duration of antibiotic treatment will be 2 weeks from first set of negative blood cultures. He will be treated through 06/06/17. Patient will be discharged home. - Time Spent with Patient Total time spent providing and/or coordinating discharge services: Greater than 30 minutes - Constitutional Vitals: Temp Pulse Resp BP Pulse Ox 97.8 F 85 18 164/98 96 05/26/17 06:47 05/26/17 11:01 05/26/17 11:01 05/26/17 11:01 05/26/17 11:01 General appearance: Present: cooperative, A&O X 3, morbidly obese, answers questions appropriately. Absent: no acute distress - ENT ENT exam: Present: mucous membranes moist - Respiratory Respiratory exam: Present: CTAB. Absent: accessory muscle use, rales, rhonchi, wheezes - Cardiovascular Cardiovascular exam: Present: RRR, +S1, +S2. Absent: diastolic murmur, gallop, rubs, systolic murmur - GI/Abdominal GI/Abdominal exam: Present: normal bowel sounds, soft, no peritoneal signs. Absent: distended, tenderness - Expanded Lower Extremities Exam Upper Leg exam: Present: tenderness (Patient has tenderness in hamstring area, although this has improved since his admission.) - Psychiatric Psychiatric exam: Present: normal affect, normal mood <Clarence Moore - Last Filed: 05/26/17 16:33> Date of Encounter: 05/26/17 - Discharge Diagnosis (1) CLABSI (central line-associated bloodstream infection) Priority: Primary Status: Acute Qualifiers: Encounter type: subsequent encounter Qualified Code(s): T80.211D - Bloodstream infection due to central venous catheter, subsequent encounter (2) Severe sepsis due to methicillin resistant Staphylococcus aureus (MRSA) with acute organ dysfunction Priority: Secondary Status: Resolved (3) Neck pain Status: Acute (4) MRSA bacteremia Status: Resolved (5) Hypertension Status: Chronic Qualifiers: Hypertension type: renovascular hypertension Qualified Code(s): I15.0 - Renovascular hypertension (6) Cough Priority: Secondary Status: Resolved (7) Type 2 diabetes mellitus Status: Chronic Qualifiers: Diabetes mellitus complication status: without complication Diabetes mellitus local company intermodal truck driver insulin use: without local company intermodal truck driver use Qualified Code(s): E11.9 - Type 2 diabetes mellitus without complications (8) Obstructive sleep apnea Status: Chronic (9) Morbid obesity with BMI of 40.0-44.9, adult Priority: Secondary Status: Chronic (10) Elevated CK Priority: Secondary Status: Resolved (11) Anemia in ESRD (end-stage renal disease) Status: Chronic (12) Peritoneal dialysis status Priority: Secondary Status: Chronic Date of admission: 05/20/17 08:48 Primary care physician: Blayne Florence, Consults: 05/21/17 08:10 Consult to Interventional Radiology [CONS] Routine Consulting Provider: Radiology Interventional Cols Reason for Consult: Please evaluate for more urgent Permacath removal d/t MRSA bacteremia. He does not take Plavix or ASA. Thank you. Call Completed: Yes 05/23/17 09:41 Consult to Infectious Diseases [CONS] Routine Consulting Provider: Infectious Disease Heide Reason for Consult: Patient has MRSA Bacteremia. Need to know how long he will need to be on Vancomycin. Call Completed: Yes 05/26/17 09:02 Consult to PICC team [Consult to Invasive Line Access Team] [CONS] Routine Reason for Consult: Patient needs IV antibiotic through June 06. Line Type: EPIV Hospital course: Mr. Rudd is a 47 year old male - Time Spent with Patient Total time spent providing and/or coordinating discharge services: 38min - Constitutional Vitals: Temp Pulse Resp BP Pulse Ox 97.8 F 85 18 164/98 96 05/26/17 06:47 05/26/17 11:01 05/26/17 11:01 05/26/17 11:01 05/26/17 11:01 - Attending Attestation I examined this patient and my medical decision-making was reviewed with the Resident Physician on 05/26/17. I agree with the documented findings, disposition and treatment plan as described except to the extent set forth below. Mr. Rudd is doing better. His neck has improved. No fever. Ready for discharge home on IV Vanc Exam Alert. Comfortable Heart reg No edema now Plan D/C home on IV Vanc to complete 2 weeks. Follow up with ID and renal
--- NOTE | 2017-05-26 17:36 | Nephrology Progress Note ---
Date of Encounter: 05/26/17 Time of Encounter: 10:10 Subjective Principal diagnosis: Fevers; Hx of ESRD Objective - Vital Signs Vital signs: Vital Signs Temp Pulse Resp BP Pulse Ox 05/26/17 17:12 98.2 F 93 18 145/84 95 05/26/17 11:01 85 18 164/98 96 05/26/17 08:44 96 05/26/17 06:47 97.8 F 80 18 158/88 05/26/17 05:05 97.8 F 78 16 149/83 96 05/26/17 00:17 97.5 F L 72 16 165/99 95 05/25/17 20:20 98.0 F 76 17 159/91 96 Intake and Output 05/26/17 05/26/17 05/26/17 07:59 15:59 23:59 Intake Total 720 / 720 Output Total 350 / 350 Balance 370 / 370 Intake: Oral 720 / 720 Output: Urine 350 / 350 Other: Meal Breakfast Percent of Meal Consumed 85% Total Peritoneal Dialysis 20 -120 Output Weight 126.751 kg 126.5 kg Blood Glucose* 110 134 109 Patient Weight 05/26/17 23:59 Weight 126.5 kg - Lab 05/26/17 05:09 05/26/17 03:39 Most recent lab results Calcium 8.8 mg/dL (8.6-10.8) 05/26/17 03:39 Phosphorus 4.8 mg/dL (2.3-4.7) H 05/21/17 04:03 Magnesium 1.9 mg/dL (1.6-2.6) 05/24/17 05:48 Consult Discharge Plan - Plan Instructions: Vancomycin (Injection), Diabetes Mellitus Type 2 in Adults (DC), End-Stage Kidney Disease (DC) Referrals: Blayne Florence DO [Primary Care Provider] - 06/04/17 9:30 am (web request..05/21/2017) Georgie Diamond CNP [Advanced Practice Nurse] - 06/05/17 8:30 am Prescriptions: Vancomycin [Vancocin] 500 each IV DAILY #11 vial
[2017-05-27] MEDS: Perit. Dialysis with Dex 1.5 % 2,000 ML PERITONEAL SCH ×3 (00:21→08:43)
[2017-05-27] MEDS: Insulin LISPRO 300 UNITS/3 ML VIAL SQ SCH ×2 (00:26→08:18)
[2017-05-27] MEDS: Gentamicin Oint 15 GM TUBE TP SCH ×2 (00:26→08:18)
[2017-05-27] MEDS: Metoprolol 100 MG TABLET PO SCH ×2 (02:46→08:17)
[2017-05-27 05:00] LABS: Eosinophils # 0.3 K/mcL (0.0-0.6); Hematocrit 29.1 % (37.5-50.1); Hemoglobin 9.8 g/dL (12.9-16.9); Mean Corpuscular HGB Conc 33.7 g/dL (31.6-35.5); Mean Corpuscular Hemoglobin 30.5 pg (28.0-33.3); Mean Corpuscular Volume 90.7 fL (83.0-100.0); Mean Platelet Volume 10.3 fL (9.4-12.4); Platelet Count 234 K/mcL (140-400); Red Blood Count 3.21 M/mcL (4.19-5.50); Red Cell Distribution Width 12.9 % (11.5-14.5)
[2017-05-27 05:17] LABS: Calcium 9.2 mg/dL (8.6-10.8); Potassium 4.5 mEq/L (3.5-4.5)
[2017-05-27] MEDS: *HR* Heparin 5,000 UNIT/ML VIAL SQ SCH (05:47)
[2017-05-27 06:02] LABS: Anisocytosis 1+ (Not Present); Lymphocytes # 1.8 K/mcL (0.6-4.6); Monocytes # 0.6 K/mcL (0.0-1.3); Neutrophils # 11.7 K/mcL (1.6-8.9); Platelet Estimate Normal (Normal)
[2017-05-27 06:44] VITALS: BP 117/70
[2017-05-27] MEDS: NIFEdipine XL (24 HR) 60 MG TAB.ER.24 PO SCH (08:17)
[2017-05-27] MEDS: Famotidine 20 MG TABLET PO SCH (08:17)
[2017-05-27] MEDS: Lisinopril 20 MG TABLET PO SCH (08:17)
[2017-05-27] MEDS: Cholecalciferol (D-3) 1,000 UNIT TABLET PO SCH (08:17)
[2017-05-27] MEDS ORDERED: Aminoglycoside Consult 1 EACH MC ONE (11:14)
--- NOTE | 2017-05-27 12:04 | Infectious Disease Progress No ---
Date of Encounter: 05/27/17 Time of Encounter: 09:45 - Assessment and Plan (1) Severe sepsis due to methicillin resistant Staphylococcus aureus (MRSA) with acute organ dysfunction Status: Resolved The patient had four SIRS criteria plus lactic acidosis on admission. Secondary to bacteremia and TDC infection. Improved. The patient has been afebrile. Tachycardia, tachypnea, and bandemia has resolved. His WBC is trending up, but clinically, the patient is improved. Blood cultures drawn from a peripheral stick 05/20/17 are positive 2/2 sets for MRSA. Blood cultures drawn from the TDC 05/20/17 are positive 1/2 sets. Repeat blood cultures x 2 drawn 05/24/17 are NGTD. (2) MRSA bacteremia Status: Resolved Causative organism: MRSA. Source likely the temporary dialysis catheter, which was removed 05/21/17. Dialysis catheter tip culture was positive for MRSA as well. Uncomplicated. The patient has no indwelling hardware, lines, or evidence of septic emboli. The patient has one major and one minor Modified Mata's criteria. BRYAN completed 05/22/17 was negative for vegetations. Low index of suspicion for IE. Repeat blood cultures x 2 sets drawn 05/24/17 are NGTD. Continue Vancomycin IV. Pharmacy to dose. Goal trough approximately 15. Vanc trough 05/25/17 was 17.1. Duration of treatment depends on the clinical picture, but likely 2 weeks from the first set of negative blood cultures. Treat through 06/06/17. EPIV placed 05/26/17. Monitor renal function and for drug toxicity and dose-adjust antibiotics. Continue contact precautions per protocol. Will need weekly labs every Friday for the duration of treatment: CBC, BMP, Vanc trough. Repeat CBC on Friday. Will contact home health and have them draw it. Weekly EPIV care per protocol. Follow up with ID 06/05/17 at 0830. (3) CLABSI (central line-associated bloodstream infection) Status: Acute Source: left upper chest temporary dialysis catheter. TDC removed 05/21/17. Catheter tip culture positive for MRSA. Continue antibiotics as above. Qualifiers: Encounter type: subsequent encounter Qualified Code(s): T80.211D - Bloodstream infection due to central venous catheter, subsequent encounter (4) Lactic acidosis Status: Resolved Likely secondary to sepsis. Resolved. (5) Neck pain Status: Resolved Likely musculoskeltal in origin. CT of the C-spine negative for infectious etiology to explain the patient's pain. Pain management per the primary team. (6) Elevated CK Status: Resolved Etiology unclear, but trending down. Continue to trend. (7) Status post cholecystectomy Status: Resolved Status post lap cholecystectomy 04/11/[address] Jean-Baptiste. Patient states he has done well post-op and has been back to work. States he did notice one of the incisions was a little red, but states he bumped this area several times when he is at work. He denies tenderness, drainage, or pain. (8) Anemia in ESRD (end-stage renal disease) Status: Chronic Hgb improved. No evidence of active bleeding. Management per the nephrology and primary team. (9) Obstructive sleep apnea Status: Chronic (10) Peritoneal dialysis status Status: Chronic Follows with [facility] - Dr. Rosales. Nephrology consulted and following. No evidence of peritonitis. PD catheter without erythema, warmth, or tenderness. PD fluid with TNC 66 and culture negative. (11) Type 2 diabetes mellitus Status: Chronic Qualifiers: Diabetes mellitus complication status: without complication Diabetes mellitus nursing home insulin use: without nursing home use Qualified Code(s): E11.9 - Type 2 diabetes mellitus without complications - Subjective Interval history: Patient seen and examined. No acute events noted. Patient states that overall he feels well, but is concerned that his WBC is up today. Denies any fevers or chills or rigors. Denies any headache and states that his neck pain is nearly resolved. He denies any chest pain, shortness of breath, or cough. He denies any nausea, vomiting, diarrhea, constipation. Does report one loose stool this morning. He denies any abdominal pain or urinary complaints. He states that his peritoneal dialysis is going well. He denies any oral thrush or new skin lesions. He denies pain in his extremities or his back at this time. Infect Dis PN-Objective Data - Labs CBC & Chem 7: 05/27/17 04:42 05/27/17 04:42 Labs: Laboratory Results - last 24 hr 05/25/17 05/26/17 05/26/17 20:18 06:48 11:48 WBC RBC Hgb Hct MCV MCH MCHC RDW Plt Count MPV Seg Neutrophils % Band Neutrophils % Lymphocytes % Monocytes % Eosinophils % Metamyelocytes % Myelocytes % Neutrophils # Lymphocytes # Monocytes # Eosinophils # Platelet Estimate Anisocytosis Sodium Potassium Chloride Carbon Dioxide BUN Creatinine Est GFR ( Amer) Est GFR (Non-Af Amer) BUN/Creatinine Ratio Glucose POC Glucose 94 H 110 H 134 H Calculated Osmolality Calcium Vancomycin Trough 05/26/17 05/27/17 05/27/17 17:03 04:42 04:42 WBC 15.0 H RBC 3.21 L Hgb 9.8 L Hct 29.1 L MCV 90.7 MCH 30.5 MCHC 33.7 RDW 12.9 Plt Count 234 MPV 10.3 Seg Neutrophils % 76.0 Band Neutrophils % 2.0 Lymphocytes % 12.0 Monocytes % 4.0 Eosinophils % 2.0 Metamyelocytes % 2.0 H Myelocytes % 2.0 H Neutrophils # 11.7 H Lymphocytes # 1.8 Monocytes # 0.6 Eosinophils # 0.3 Platelet Estimate Normal Anisocytosis 1+ A Sodium 136 Potassium 4.5 Chloride 106 Carbon Dioxide 22 BUN 52 H Creatinine 7.93 H Est GFR ( Amer) 9 L Est GFR (Non-Af Amer) 7 L BUN/Creatinine Ratio 7 Glucose 130 H POC Glucose 109 H Calculated Osmolality 298 Calcium 9.2 Vancomycin Trough 05/27/17 04:42 WBC RBC Hgb Hct MCV MCH MCHC RDW Plt Count MPV Seg Neutrophils % Band Neutrophils % Lymphocytes % Monocytes % Eosinophils % Metamyelocytes % Myelocytes % Neutrophils # Lymphocytes # Monocytes # Eosinophils # Platelet Estimate Anisocytosis Sodium Potassium Chloride Carbon Dioxide BUN Creatinine Est GFR ( Amer) Est GFR (Non-Af Amer) BUN/Creatinine Ratio Glucose POC Glucose Calculated Osmolality Calcium Vancomycin Trough 20.8 H* Cultures: Cultures 05/20/17 15:45 Blood Culture - Final Central Venous Catheter No growth. 05/24/17 05:43 Blood Culture - Preliminary Peripheral Venipuncture No growth. 05/24/17 05:48 Blood Culture - Preliminary Peripheral Venipuncture No growth. 05/20/17 15:45 Blood Culture - Final Central Venous Catheter Methicillin Resistant S.aureus 05/21/17 12:44 Catheter Tip Culture - Final Intravenous or Arterial Cath Methicillin Resistant S.aureus 05/20/17 17:45 Body Fluid Culture - Final Peritoneal Fluid 05/20/17 13:10 Urine Culture - Final Urine,Clean Catch No pathogens isolated. 05/21/17 01:25 Influenza Types A,B Antigen (CHRIS) - Final Nasopharyngeal Serology 05/20/17 05/20/17 05/20/17 Range/Units 17:45 16:55 15:45 Urine Color (Yellow) Urine Clarity (Clear) Urine pH (5.0-8.0) pH Units Ur Specific Cash (1.010-1.025) Urine Protein (Neg-Trace) mg/dL Urine Glucose (UA) (Normal) mg/dL Urine Ketones (Negative) mg/dL Urine Blood (Negative) Urine Nitrite (Negative) Urine Bilirubin (Negative) Urine Urobilinogen (Normal) mg/dL Ur Leukocyte Esterase (Negative) Urine Microscopic RBC (0-3) per hpf Urine Microscopic WBC (0-3) per hpf Ur Squamous Epith Cells (None-Few) per lpf Urine Bacteria (None-Few) per hpf Hyaline Casts (None-Few) per lpf Ur Culture Indicated? (NO) Fluid Source Peritoneal fluid Fluid Volume 40 mL Fluid Appearance Clear (Clear) Fluid RBC < 0.002 (No Ref Range) M/mcL Fld Tot Nucleated Cell 66 (No Ref Range) TNC/mcL Fluid Seg Neutrophil % 90.0 % Fld Band Neutrophil % 4.0 % Fluid Lymphocytes % 1.0 % Fluid Monocytes % 5.0 % Fluid Eosinophils % Test Not Performed Fluid Basophils % Test Not Performed Fluid Other Cells % Test Not Performed Stool Occult Blood Negative (Negative) A. baumannii (PCR) Not Detected (Not Detect) Gldays albicans (PCR) Not Detected (Not Detect) C. glabrata (PCR) Not Detected (Not Detect) C. krusei (PCR) Not Detected (Not Detect) C. parapsilosis (PCR) Not Detected (Not Detect) C. tropicalis (PCR) Not Detected (Not Detect) Enterobacteriac sp PCR Not Detected (Not Detect) E. cloacae complex PCR Not Detected (Not Detect) Enterococcus sp PCR Not Detected (Not Detect) E. coli (PCR) Not Detected (Not Detect) H. influenzae (PCR) Not Detected (Not Detect) Klebsiella oxytoca PCR Not Detected (Not Detect) Klebsiella pneumoniae Not Detected (Not Detect) List. monocytogenes PCR Not Detected (Not Detect) N. meningitidis (PCR) Not Detected (Not Detect) Proteus species (PCR) Not Detected (Not Detect) Serratia marcescens PCR Not Detected (Not Detect) Staphylococcus sp PCR DETECTED A (Not Detect) Staph aureus (PCR) DETECTED A (Not Detect) mecA-Methicil Res Gene DETECTED A (Not Detect) Streptococcus sp PCR Not Detected (Not Detect) Group A Strep DNA Not Detected (Not Detect) Group B Strep (PCR) Not Detected (Not Detect) Strep pneumoniae (PCR) Not Detected (Not Detect) P. aeruginosa (PCR) Not Detected (Not Detect) Magnolia/B-Vanco Res Genes N/A (Not Detect) KPC (blaKPC) Detect PCR N/A (Not Detect) 05/20/17 Range/Units 13:10 Urine Color Yellow (Yellow) Urine Clarity Cloudy A (Clear) Urine pH 6.0 (5.0-8.0) pH Units Ur Specific Cash 1.013 (1.010-1.025) Urine Protein >=300 H (Neg-Trace) mg/dL Urine Glucose (UA) 100 H (Normal) mg/dL Urine Ketones Negative (Negative) mg/dL Urine Blood Large H (Negative) Urine Nitrite Negative (Negative) Urine Bilirubin Negative (Negative) Urine Urobilinogen Normal (Normal) mg/dL Ur Leukocyte Esterase Small H (Negative) Urine Microscopic RBC 3-5 H (0-3) per hpf Urine Microscopic WBC 30-50 H (0-3) per hpf Ur Squamous Epith Cells Many H (None-Few) per lpf Urine Bacteria None Seen (None-Few) per hpf Hyaline Casts None Seen (None-Few) per lpf Ur Culture Indicated? YES A (NO) Fluid Source Fluid Volume mL Fluid Appearance (Clear) Fluid RBC (No Ref Range) M/mcL Fld Tot Nucleated Cell (No Ref Range) TNC/mcL Fluid Seg Neutrophil % % Fld Band Neutrophil % % Fluid Lymphocytes % % Fluid Monocytes % % Fluid Eosinophils % Fluid Basophils % Fluid Other Cells % Stool Occult Blood (Negative) A. baumannii (PCR) (Not Detect) Gladys albicans (PCR) (Not Detect) C. glabrata (PCR) (Not Detect) C. krusei (PCR) (Not Detect) C. parapsilosis (PCR) (Not Detect) C. tropicalis (PCR) (Not Detect) Enterobacteriac sp PCR (Not Detect) E. cloacae complex PCR (Not Detect) Enterococcus sp PCR (Not Detect) E. coli (PCR) (Not Detect) H. influenzae (PCR) (Not Detect) Klebsiella oxytoca PCR (Not Detect) Klebsiella pneumoniae (Not Detect) List. monocytogenes PCR (Not Detect) N. meningitidis (PCR) (Not Detect) Proteus species (PCR) (Not Detect) Serratia marcescens PCR (Not Detect) Staphylococcus sp PCR (Not Detect) Staph aureus (PCR) (Not Detect) mecA-Methicil Res Gene (Not Detect) Streptococcus sp PCR (Not Detect) Group A Strep DNA (Not Detect) Group B Strep (PCR) (Not Detect) Strep pneumoniae (PCR) (Not Detect) P. aeruginosa (PCR) (Not Detect) Magnolia/B-Vanco Res Genes (Not Detect) KPC (blaKPC) Detect PCR (Not Detect) Exam - Constitutional Vitals: Temp Pulse Resp BP Pulse Ox 98.1 F 85 15 117/70 95 05/27/17 06:38 05/27/17 06:38 05/27/17 06:38 05/27/17 06:38 05/27/17 06:38 General appearance: cooperative, morbidly obese, no acute distress - Head Head exam: Present: atraumatic, normal inspection, normocephalic - Eye Eye exam: Present: EOMI, normal appearance, PERRL Pupils: Present: normal accommodation Additional comments: No subconjunctival hemorrhage noted. - ENT ENT exam: Present: mucous membranes moist - Neck Neck exam: Present: full ROM, normal inspection. Absent: tenderness - Respiratory Respiratory exam: Present: CTAB. Absent: rales, respiratory distress, rhonchi, wheezes - Cardiovascular Cardiovascular exam: Present: RRR, +S1, +S2 - GI/Abdominal GI/Abdominal exam: Present: distended (obese), normal bowel sounds, soft. Absent: tenderness Additional comments: PD catheter noted to the LLQ with dressing C/D/I. - Extremities Exam Extremities exam: Present: normal inspection. Absent: joint swelling, pedal edema, tenderness Additional comments: No endocarditis stigmata noted. - Neurological Exam Neurological exam: Present: alert, oriented X3, no focal deficits - Psychiatric Psychiatric exam: Present: normal affect, normal mood - Skin Skin exam: Present: dry, intact, normal color, warm Consult Discharge Plan - Plan Instructions: Vancomycin (Injection), Diabetes Mellitus Type 2 in Adults (DC), End-Stage Kidney Disease (DC) Referrals: Blayne Florence DO [Primary Care Provider] - 06/09/17 9:30 am () Georgie Diamond CNP [Advanced Practice Nurse] - 06/05/17 8:30 am Prescriptions: Vancomycin [Vancocin] 500 each IV DAILY #11 vial
--- NOTE | 2017-05-28 11:25 | Electrocardiograph Report ---
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
== END 2017-05-27 11:15 | disposition home or self-care (01) | DRG 314 ==
LOC: EMEROO 05:40 → 2ANU 05:40 → SUATTDRO 08:48
PROVIDERS: ADMIT Family Medicine; ATTEND Internal Medicine

== ENCOUNTER 2021-01-22 18:33 | Inpatient (IN) ==
[2021-01-22] MEDS ORDERED: Ondansetron 4 MG/2 ML VIAL IVP ONE (19:21)
[2021-01-22] MEDS ORDERED: *HR* FentaNYL (PF) 100 MCG/2 ML VIAL IVP ONE ×2 (19:21→21:59)
[2021-01-22 19:33] LABS: Basophils # 0.1 K/mcL (0.0-0.2); Basophils % 0.6 %; Eosinophils # 0.3 K/mcL (0.0-0.6); Eosinophils % 2.3 %; Hematocrit 29.4 % (37.5-50.1); Immature Granulocytes % 2.7 % (0-4); Lymphocytes # 1.9 K/mcL (0.6-4.6); Lymphocytes % 13.9 %; Mean Corpuscular Hemoglobin 33.3 pg (28.0-33.3); Mean Platelet Volume 10.8 fL (9.4-12.4); Monocytes # 0.8 K/mcL (0.0-1.3); Neutrophils # 10.3 K/mcL (1.6-8.9); Platelet Count 205 K/mcL (140-400); Red Cell Distribution Width 13.1 % (11.5-14.5); Segmented Neutrophils % 74.5 %; White Blood Count 13.8 K/mcL (4.3-11.1)
[2021-01-22 20:13] LABS: Troponin I 0.08 ng/mL (< 0.04)
[2021-01-22 20:17] LABS: Albumin 3.5 g/dL (3.5-5.7); Albumin/Globulin Ratio 1.8 (1.1-2.2); Bilirubin,Total 0.4 mg/dL (0.3-1.0); Calcium 8.9 mg/dL (8.6-10.3); Globulin 1.9 g/dL (2.4-3.5); Potassium 4.5 mEq/L (3.5-5.1); Total Protein 5.4 g/dL (6.4-8.9)
[2021-01-22] MEDS ORDERED: Cefepime HCl 2,000 MG in 0.9 % Sodium Chloride Mini Bag 100 ML IVPB STA (20:44)
[2021-01-22] MEDS ORDERED: Isovue-370 500 ML BOTTLE IVP ONE (20:52)
[2021-01-22] MEDS ORDERED: Naloxone 0.4 MG/ML INJ IVP PRN (23:41)
[2021-01-22] MEDS ORDERED: *HR* Dextrose 50 % in Water (Vial) 50 ML VIAL IVP PRN (23:45)
[2021-01-22] MEDS ORDERED: D5% in Water 1,000 ML IVC PRN (23:45)
[2021-01-22] MEDS ORDERED: Dextrose Gel 15 GM/37.5 ML TUBE PO PRN ×2 (23:45)
[2021-01-23] MEDS: Insulin LISPRO 300 UNITS/3 ML VIAL SUBQ SCH ×4 (00:13→16:01)
[2021-01-23 00:44] LABS: INR 1.2; Prothrombin Time 13.8 Seconds (9.4-12.1)
[2021-01-23] MEDS ORDERED: Vancomycin 1 EACH in 0.9 % Sodium Chloride 250 ML IVPB PRN (01:00)
[2021-01-23 02:27] LABS: Basophils # 0.1 K/mcL (0.0-0.2); Basophils % 0.4 %; Eosinophils # 0.1 K/mcL (0.0-0.6); Eosinophils % 0.8 %; Hematocrit 25.3 % (37.5-50.1); Hemoglobin 8.4 g/dL (12.9-16.9); Hemoglobin 8.5 g/dL (12.9-16.9); Immature Granulocytes % 3.1 % (0-4); Lymphocytes # 2.3 K/mcL (0.6-4.6); Lymphocytes % 19.2 %; Mean Corpuscular HGB Conc 33.6 g/dL (31.6-35.5); Mean Corpuscular Hemoglobin 32.8 pg (28.0-33.3); Mean Corpuscular Volume 97.7 fL (83.0-100.0); Mean Platelet Volume 10.4 fL (9.4-12.4); Monocytes % 8.2 %; Neutrophils # 8.3 K/mcL (1.6-8.9); Platelet Count 158 K/mcL (140-400); Red Blood Count 2.59 M/mcL (4.19-5.50); Red Cell Distribution Width 13.4 % (11.5-14.5); Segmented Neutrophils % 68.3 %; White Blood Count 12.1 K/mcL (4.3-11.1)
[2021-01-23 02:43] LABS: Calcium 8.5 mg/dL (8.6-10.3); Phosphorous 7.3 mg/dL (2.7-4.5)
[2021-01-23] MEDS: Ondansetron 4 MG/2 ML VIAL IVP PRN (08:55)
[2021-01-23] MEDS ORDERED: Cefepime HCl 1,000 MG in Water for inj. (sterile) 10 ML IVP SCH (09:00)
[2021-01-23 09:19] LABS: Hematocrit 26.3 % (37.5-50.1); Hemoglobin 8.9 g/dL (12.9-16.9)
[2021-01-23 11:20] LABS: Appearance of Peritoneal Fl CLEAR (Clear)
[2021-01-23 11:21] LABS: RBC,Peritoneal Fluid < 2000 RBC/mcL
[2021-01-23 11:55] LABS: Basophils,Peritoneal Fluid 0 %; Eosinophils,Peritoneal Fluid 0 %
[2021-01-23 12:49] LABS: Hematocrit 23.7 % (37.5-50.1)
[2021-01-23] MEDS ORDERED: Calcium Acetate 667 MG CAPSULE PO PRN (13:10)
[2021-01-23] MEDS: Nystatin POWDER 30 GM BOTTLE TP SCH ×2 (14:26→20:37)
[2021-01-23] MEDS: PARoxetine 20 MG TABLET PO SCH ×2 (14:26→20:36)
[2021-01-23] MEDS: Calcium Acetate 667 MG CAPSULE PO SCH (16:40)
[2021-01-23 18:28] LABS: Hepatitis B Surface Antigen Nonreactive (Nonreactive)
[2021-01-23 18:37] LABS: Hematocrit 25.5 % (37.5-50.1); Hemoglobin 8.5 g/dL (12.9-16.9)
[2021-01-23] MEDS ORDERED: Perit. Dialysis with Dex 2.5 % 12,000 ML PERITONEAL ONE (19:00)
[2021-01-23 19:51] LABS: Hepatitis B Surface Antibody 11.25 mIU/mL
[2021-01-23] MEDS: Gentamicin Oint 15 GM TUBE TP SCH (20:36)
[2021-01-23] MEDS: Furosemide 40 MG TABLET PO SCH (20:36)
[2021-01-23 23:57] LABS: Hematocrit 22.7 % (37.5-50.1); Hemoglobin 7.8 g/dL (12.9-16.9)
[2021-01-24 04:26] LABS: Basophils # 0.1 K/mcL (0.0-0.2); Basophils % 0.6 %; Eosinophils # 0.3 K/mcL (0.0-0.6); Eosinophils % 3.3 %; Hematocrit 21.8 % (37.5-50.1); Hemoglobin 7.4 g/dL (12.9-16.9); Immature Granulocytes % 4.3 % (0-4); Lymphocytes # 1.5 K/mcL (0.6-4.6); Lymphocytes % 17.2 %; Mean Corpuscular HGB Conc 33.9 g/dL (31.6-35.5); Mean Corpuscular Hemoglobin 33.8 pg (28.0-33.3); Mean Corpuscular Volume 99.5 fL (83.0-100.0); Mean Platelet Volume 10.8 fL (9.4-12.4); Monocytes # 0.9 K/mcL (0.0-1.3); Monocytes % 10.6 %; Neutrophils # 5.4 K/mcL (1.6-8.9); Platelet Count 134 K/mcL (140-400); Red Blood Count 2.19 M/mcL (4.19-5.50); Red Cell Distribution Width 13.5 % (11.5-14.5); White Blood Count 8.5 K/mcL (4.3-11.1)
[2021-01-24 04:32] LABS: INR 1.2; Prothrombin Time 13.7 Seconds (9.4-12.1)
[2021-01-24 04:44] LABS: % Iron Saturation 56 % (20-55); Iron 119 mcg/dL (65-175); Transferrin 153 mg/dL (203-362)
[2021-01-24 04:46] LABS: Calcium 8.7 mg/dL (8.6-10.3); Magnesium 2.1 mg/dL (1.6-2.6); Potassium 4.1 mEq/L (3.5-5.1)
[2021-01-24 05:09] LABS: Folate 4.2 ng/mL (3.0-16.0)
[2021-01-24 05:18] LABS: Estimated Average Glucose 117 mg/dl; Hemoglobin A1C 5.7 %
[2021-01-24] MEDS ORDERED: 0.9 % Sodium Chloride 250 ML ONE (07:03)
[2021-01-24] MEDS: Insulin LISPRO 300 UNITS/3 ML VIAL SUBQ SCH ×3 (08:35→17:25)
[2021-01-24] MEDS: PARoxetine 20 MG TABLET PO SCH ×2 (08:47→20:05)
[2021-01-24] MEDS: allopurinoL 100 MG TABLET PO SCH (08:48)
[2021-01-24] MEDS: Calcium Acetate 667 MG CAPSULE PO SCH ×3 (08:48→17:20)
[2021-01-24] MEDS: Furosemide 40 MG TABLET PO SCH ×2 (08:48→20:05)
[2021-01-24] MEDS: calcitrioL 0.25 MCG CAPSULE PO SCH (08:49)
[2021-01-24] MEDS: Cefepime HCl 1,000 MG in Water for inj. (sterile) 10 ML IVP SCH (08:49)
[2021-01-24] MEDS: Nystatin POWDER 30 GM BOTTLE TP SCH ×3 (08:55→20:05)
[2021-01-24 14:05] LABS: Hematocrit 21.7 % (37.5-50.1); Hemoglobin 7.3 g/dL (12.9-16.9)
[2021-01-24] MEDS ORDERED: Perit. Dialysis with Dex 2.5 % 12,000 ML PERITONEAL ONE (19:00)
[2021-01-24] MEDS: Gentamicin Oint 15 GM TUBE TP SCH (19:50)
[2021-01-24] MEDS: Ondansetron 4 MG/2 ML VIAL IVP PRN (20:04)
[2021-01-24 20:07] LABS: Hematocrit 22.3 % (37.5-50.1); Hemoglobin 7.6 g/dL (12.9-16.9)
[2021-01-25 06:17] LABS: Basophils % 0.4 %; Eosinophils # 0.3 K/mcL (0.0-0.6); Eosinophils % 3.2 %; Hematocrit 23.1 % (37.5-50.1); Hemoglobin 7.6 g/dL (12.9-16.9); Immature Granulocytes % 3.7 % (0-4); Lymphocytes # 1.3 K/mcL (0.6-4.6); Lymphocytes % 14.7 %; Mean Corpuscular HGB Conc 32.9 g/dL (31.6-35.5); Mean Corpuscular Hemoglobin 32.5 pg (28.0-33.3); Mean Corpuscular Volume 98.7 fL (83.0-100.0); Mean Platelet Volume 10.7 fL (9.4-12.4); Monocytes # 0.8 K/mcL (0.0-1.3); Monocytes % 9.1 %; Neutrophils # 6.3 K/mcL (1.6-8.9); Platelet Count 122 K/mcL (140-400); Red Blood Count 2.34 M/mcL (4.19-5.50); Segmented Neutrophils % 68.9 %; White Blood Count 9.1 K/mcL (4.3-11.1)
[2021-01-25 08:24] LABS: Calcium 9.4 mg/dL (8.6-10.3); Magnesium 2.1 mg/dL (1.6-2.6); Phosphorous 8.4 mg/dL (2.7-4.5); Potassium 4.3 mEq/L (3.5-5.1)
[2021-01-25] MEDS: Furosemide 40 MG TABLET PO SCH ×2 (09:38→20:43)
[2021-01-25] MEDS: PARoxetine 20 MG TABLET PO SCH ×2 (09:38→20:43)
[2021-01-25] MEDS: calcitrioL 0.25 MCG CAPSULE PO SCH (09:38)
[2021-01-25] MEDS: Calcium Acetate 667 MG CAPSULE PO SCH ×3 (09:39→16:41)
[2021-01-25] MEDS: Insulin LISPRO 300 UNITS/3 ML VIAL SUBQ SCH ×3 (09:39→16:36)
[2021-01-25] MEDS: allopurinoL 100 MG TABLET PO SCH (09:39)
[2021-01-25] MEDS: Cefepime HCl 1,000 MG in Water for inj. (sterile) 10 ML IVP SCH (09:49)
[2021-01-25] MEDS: Nystatin POWDER 30 GM BOTTLE TP SCH ×3 (09:49→20:43)
[2021-01-25] MEDS ORDERED: 0.9 % Sodium Chloride 250 ML ONE (10:06)
[2021-01-25] MEDS ORDERED: PERIT DIALYSIS WITH DEX 2.5% PERITONEAL ONE (19:00)
[2021-01-25] MEDS: Gentamicin Oint 15 GM TUBE TP SCH (21:15)
[2021-01-26 04:27] LABS: Basophils # 0.1 K/mcL (0.0-0.2); Basophils % 0.5 %; Eosinophils # 0.3 K/mcL (0.0-0.6); Eosinophils % 3.5 %; Hematocrit 24.5 % (37.5-50.1); Immature Granulocytes % 5.8 % (0-4); Lymphocytes # 1.4 K/mcL (0.6-4.6); Lymphocytes % 14.9 %; Mean Corpuscular HGB Conc 32.7 g/dL (31.6-35.5); Mean Corpuscular Hemoglobin 32.4 pg (28.0-33.3); Mean Corpuscular Volume 99.2 fL (83.0-100.0); Mean Platelet Volume 10.3 fL (9.4-12.4); Monocytes # 0.8 K/mcL (0.0-1.3); Monocytes % 8.8 %; Neutrophils # 6.3 K/mcL (1.6-8.9); Platelet Count 142 K/mcL (140-400); Red Blood Count 2.47 M/mcL (4.19-5.50); Red Cell Distribution Width 14.1 % (11.5-14.5); Segmented Neutrophils % 66.5 %; White Blood Count 9.4 K/mcL (4.3-11.1)
[2021-01-26 04:44] LABS: Calcium 10.4 mg/dL (8.6-10.3); Magnesium 2.1 mg/dL (1.6-2.6); Potassium 4.1 mEq/L (3.5-5.1)
[2021-01-26 04:52] LABS: Platelet Estimate Normal (Normal)
[2021-01-26 04:53] LABS: Reactive Lymphocytes Present (Not Present); Toxic Granulation Present (Not Present)
[2021-01-26 04:54] LABS: Anisocytosis 1+ (Not Present); Poikilocytosis 1+ (Not Present)
[2021-01-26] MEDS: Furosemide 40 MG TABLET PO SCH ×2 (08:10→21:24)
[2021-01-26] MEDS: Calcium Acetate 667 MG CAPSULE PO SCH ×2 (08:10→11:37)
[2021-01-26] MEDS: calcitrioL 0.25 MCG CAPSULE PO SCH (08:10)
[2021-01-26] MEDS: PARoxetine 20 MG TABLET PO SCH (08:10)
[2021-01-26] MEDS: Cefepime HCl 1,000 MG in Water for inj. (sterile) 10 ML IVP SCH (08:11)
[2021-01-26] MEDS: Nystatin POWDER 30 GM BOTTLE TP SCH ×3 (08:11→21:25)
[2021-01-26] MEDS: allopurinoL 100 MG TABLET PO SCH (08:12)
[2021-01-26] MEDS: Insulin LISPRO 300 UNITS/3 ML VIAL SUBQ SCH ×3 (08:15→16:17)
[2021-01-26] MEDS: Ondansetron 4 MG/2 ML VIAL IVP PRN (16:16)
[2021-01-26] MEDS ORDERED: ALPRAZolam 0.25 MG TABLET PO ONE (17:33)
[2021-01-26] MEDS ORDERED: Ondansetron 4 MG/2 ML VIAL IVP STA (17:56)
[2021-01-26] MEDS ORDERED: Ondansetron 4 MG/2 ML VIAL IVP ONE (17:56)
[2021-01-26] MEDS ORDERED: PERIT DIALYSIS WITH DEX 2.5% PERITONEAL ONE (19:00)
[2021-01-26] MEDS: Gentamicin Oint 15 GM TUBE TP SCH (19:49)
[2021-01-27 03:59] LABS: Basophils % 0.4 %; Eosinophils # 0.4 K/mcL (0.0-0.6); Eosinophils % 4.1 %; Hematocrit 24.5 % (37.5-50.1); Hemoglobin 8.2 g/dL (12.9-16.9); Immature Granulocytes % 5.2 % (0-4); Lymphocytes # 1.2 K/mcL (0.6-4.6); Lymphocytes % 11.9 %; Mean Corpuscular HGB Conc 33.5 g/dL (31.6-35.5); Mean Corpuscular Hemoglobin 33.2 pg (28.0-33.3); Mean Corpuscular Volume 99.2 fL (83.0-100.0); Mean Platelet Volume 10.5 fL (9.4-12.4); Monocytes # 0.8 K/mcL (0.0-1.3); Monocytes % 7.8 %; Neutrophils # 7.3 K/mcL (1.6-8.9); Platelet Count 154 K/mcL (140-400); Red Blood Count 2.47 M/mcL (4.19-5.50); Red Cell Distribution Width 13.9 % (11.5-14.5); Segmented Neutrophils % 70.6 %; White Blood Count 10.3 K/mcL (4.3-11.1)
[2021-01-27 04:12] LABS: Calcium 11.1 mg/dL (8.6-10.3); Phosphorous 6.7 mg/dL (2.7-4.5); Potassium 4.1 mEq/L (3.5-5.1)
[2021-01-27 04:24] LABS: Platelet Estimate Normal (Normal); Reactive Lymphocytes Present (Not Present)
[2021-01-27] MEDS ORDERED: calcitrioL 0.25 MCG CAPSULE PO SCH (09:00)
[2021-01-27] MEDS: Insulin LISPRO 300 UNITS/3 ML VIAL SUBQ SCH ×3 (09:24→17:06)
[2021-01-27] MEDS: NIFEdipine XL (24 HR) 60 MG TAB.ER.24 PO SCH (09:37)
[2021-01-27] MEDS: FLUoxetine 20 MG CAPSULE PO SCH (09:37)
[2021-01-27] MEDS: Furosemide 40 MG TABLET PO SCH ×2 (09:37→20:27)
[2021-01-27] MEDS: Cefepime HCl 1,000 MG in Water for inj. (sterile) 10 ML IVP SCH (09:38)
[2021-01-27] MEDS: allopurinoL 100 MG TABLET PO SCH (09:38)
[2021-01-27] MEDS: Nystatin POWDER 30 GM BOTTLE TP SCH ×3 (09:50→20:28)
[2021-01-27] MEDS ORDERED: 0.9 % Sodium Chloride 250 ML IVC PRN (13:56)
[2021-01-27] MEDS ORDERED: 0.9 % Sodium Chloride 1,000 ML PRIME SCH (14:00)
[2021-01-27] MEDS ORDERED: PERIT DIALYSIS WITH DEX 2.5% PERITONEAL ONE (19:00)
[2021-01-27] MEDS: Gentamicin Oint 15 GM TUBE TP SCH (20:28)
[2021-01-28 03:49] LABS: Basophils # 0.1 K/mcL (0.0-0.2); Basophils % 0.6 %; Eosinophils # 0.5 K/mcL (0.0-0.6); Eosinophils % 4.2 %; Hematocrit 24.3 % (37.5-50.1); Immature Granulocytes % 6.5 % (0-4); Lymphocytes # 1.3 K/mcL (0.6-4.6); Lymphocytes % 10.5 %; Mean Corpuscular HGB Conc 32.9 g/dL (31.6-35.5); Mean Corpuscular Hemoglobin 32.3 pg (28.0-33.3); Mean Platelet Volume 10.3 fL (9.4-12.4); Monocytes % 9.3 %; Neutrophils # 8.5 K/mcL (1.6-8.9); Platelet Count 169 K/mcL (140-400); Red Blood Count 2.48 M/mcL (4.19-5.50); Red Cell Distribution Width 13.8 % (11.5-14.5); Segmented Neutrophils % 68.9 %; White Blood Count 12.3 K/mcL (4.3-11.1)
[2021-01-28 03:57] LABS: Monocytes # 1.1 K/mcL (0.0-1.3)
[2021-01-28 04:04] LABS: Calcium 9.8 mg/dL (8.6-10.3); Magnesium 1.9 mg/dL (1.6-2.6); Phosphorous 5.3 mg/dL (2.7-4.5); Potassium 4.2 mEq/L (3.5-5.1)
[2021-01-28 04:16] LABS: Platelet Estimate Normal (Normal)
[2021-01-28] MEDS: Insulin LISPRO 300 UNITS/3 ML VIAL SUBQ SCH ×3 (08:46→16:23)
[2021-01-28] MEDS: Furosemide 40 MG TABLET PO SCH ×2 (08:50→21:41)
[2021-01-28] MEDS: FLUoxetine 20 MG CAPSULE PO SCH (08:50)
[2021-01-28] MEDS: allopurinoL 100 MG TABLET PO SCH (08:51)
[2021-01-28] MEDS: Cefepime HCl 1,000 MG in Water for inj. (sterile) 10 ML IVP SCH (08:52)
[2021-01-28] MEDS: Nystatin POWDER 30 GM BOTTLE TP SCH ×3 (09:11→21:41)
[2021-01-28 10:03] LABS: Appearance of Body Fluid Clear (Clear)
[2021-01-28 10:04] LABS: Volume of Body Fluid 160 mL
[2021-01-28] MEDS: NIFEdipine XL (24 HR) 60 MG TAB.ER.24 PO SCH (11:02)
[2021-01-28] MEDS: Calcium Acetate 667 MG CAPSULE PO SCH ×2 (11:39→16:22)
[2021-01-28] MEDS: Ondansetron 4 MG/2 ML VIAL IVP PRN (17:08)
[2021-01-28] MEDS ORDERED: PERIT DIALYSIS WITH DEX 2.5% PERITONEAL ONE (19:00)
[2021-01-28] MEDS: Gentamicin Oint 15 GM TUBE TP SCH (20:16)
[2021-01-29 04:27] LABS: Hematocrit 26.7 % (37.5-50.1); Hemoglobin 9.1 g/dL (12.9-16.9); Mean Corpuscular HGB Conc 34.1 g/dL (31.6-35.5); Mean Corpuscular Hemoglobin 32.6 pg (28.0-33.3); Mean Corpuscular Volume 95.7 fL (83.0-100.0); Mean Platelet Volume 10.2 fL (9.4-12.4); Platelet Count 196 K/mcL (140-400); Red Blood Count 2.79 M/mcL (4.19-5.50); Red Cell Distribution Width 13.5 % (11.5-14.5); White Blood Count 14.7 K/mcL (4.3-11.1)
[2021-01-29 04:36] LABS: Calcium 10.8 mg/dL (8.6-10.3); Magnesium 2.2 mg/dL (1.6-2.6); Phosphorous 6.6 mg/dL (2.7-4.5); Potassium 4.3 mEq/L (3.5-5.1)
[2021-01-29 04:50] LABS: Anisocytosis 1+ (Not Present); Eosinophils # 0.6 K/mcL (0.0-0.6); Lymphocytes # 2.9 K/mcL (0.6-4.6); Monocytes # 0.6 K/mcL (0.0-1.3); Neutrophils # 10.6 K/mcL (1.6-8.9); Platelet Estimate Normal (Normal)
[2021-01-29] MEDS: Insulin LISPRO 300 UNITS/3 ML VIAL SUBQ SCH ×2 (08:12→12:04)
[2021-01-29] MEDS: NIFEdipine XL (24 HR) 60 MG TAB.ER.24 PO SCH (08:13)
[2021-01-29] MEDS: Calcium Acetate 667 MG CAPSULE PO SCH ×2 (08:13→12:21)
[2021-01-29] MEDS: Furosemide 40 MG TABLET PO SCH (08:13)
[2021-01-29] MEDS: allopurinoL 100 MG TABLET PO SCH (08:13)
[2021-01-29] MEDS: FLUoxetine 20 MG CAPSULE PO SCH (08:13)
[2021-01-29] MEDS: Cefepime HCl 1,000 MG in Water for inj. (sterile) 10 ML IVP SCH (08:14)
[2021-01-29] MEDS: Nystatin POWDER 30 GM BOTTLE TP SCH (08:23)
[2021-01-29] MEDS ORDERED: 0.9 % Sodium Chloride 250 ML IVC PRN (08:25)
[2021-01-29] MEDS ORDERED: 0.9 % Sodium Chloride 1,000 ML PRIME SCH (08:30)
[2021-01-29 10:40] LABS: Basophils # 0.1 K/mcL (0.0-0.2); Basophils % 0.5 %; Eosinophils # 0.5 K/mcL (0.0-0.6); Eosinophils % 3.9 %; Hematocrit 25.1 % (37.5-50.1); Hemoglobin 8.5 g/dL (12.9-16.9); Immature Granulocytes % 5.6 % (0-4); Lymphocytes # 1.5 K/mcL (0.6-4.6); Lymphocytes % 12.5 %; Mean Corpuscular HGB Conc 33.9 g/dL (31.6-35.5); Mean Corpuscular Hemoglobin 32.3 pg (28.0-33.3); Mean Corpuscular Volume 95.4 fL (83.0-100.0); Mean Platelet Volume 10.1 fL (9.4-12.4); Monocytes # 0.9 K/mcL (0.0-1.3); Monocytes % 7.6 %; Neutrophils # 8.5 K/mcL (1.6-8.9); Platelet Count 180 K/mcL (140-400); Red Blood Count 2.63 M/mcL (4.19-5.50); Red Cell Distribution Width 13.4 % (11.5-14.5); Segmented Neutrophils % 69.9 %; White Blood Count 12.2 K/mcL (4.3-11.1)
[2021-01-29 10:45] LABS: Triiodothyronine (T3) Free 2.25 pg/mL (2.50-3.90)
[2021-01-29 11:19] LABS: Anisocytosis 1+ (Not Present); Reactive Lymphocytes Present (Not Present)
[2021-01-29 11:20] LABS: Polychromasia 1+ (Not Present)
[2021-01-29 13:18] VITALS: BP 127/63
== END 2021-01-29 15:31 | disposition home or self-care (01) | DRG 393 ==
LOC: 2ANU 18:33 → EMEROOARM 18:33 → SUATTDRO 22:49 → 2ANU 23:51 → SUATTDRO 01-24 17:32
PROVIDERS: ADMIT Family Medicine; ATTEND Student in an Organized Health Care Education/Training Program

== ENCOUNTER 2021-02-02 19:53 | Observation (INO) ==
[~2021-02-02 19:53] MED LIST: *HR* HYDROcodone/Acet 5/325 mg TABLET PO PRN
[2021-02-02 21:01] LABS: Basophils # 0.1 K/mcL (0.0-0.2); Basophils % 0.6 %; Eosinophils # 0.4 K/mcL (0.0-0.6); Eosinophils % 2.7 %; Hematocrit 27.1 % (37.5-50.1); Hemoglobin 9.2 g/dL (12.9-16.9); Immature Granulocytes % 4.4 % (0-4); Lymphocytes # 2.3 K/mcL (0.6-4.6); Lymphocytes % 16.4 %; Mean Corpuscular HGB Conc 33.9 g/dL (31.6-35.5); Mean Corpuscular Hemoglobin 32.6 pg (28.0-33.3); Mean Corpuscular Volume 96.1 fL (83.0-100.0); Mean Platelet Volume 10.8 fL (9.4-12.4); Monocytes # 1.1 K/mcL (0.0-1.3); Monocytes % 7.4 %; Neutrophils # 9.7 K/mcL (1.6-8.9); Platelet Count 190 K/mcL (140-400); Red Blood Count 2.82 M/mcL (4.19-5.50); Red Cell Distribution Width 13.7 % (11.5-14.5); Segmented Neutrophils % 68.5 %; White Blood Count 14.2 K/mcL (4.3-11.1)
[2021-02-02] MEDS: 0.9 % Sodium Chloride 1,000 ML IVC SCH (21:01)
[2021-02-02 21:21] LABS: Albumin 3.6 g/dL (3.5-5.7); Albumin/Globulin Ratio 1.6 (1.1-2.2); Bilirubin,Total 0.4 mg/dL (0.3-1.0); Calcium 9.4 mg/dL (8.6-10.3); Globulin 2.3 g/dL (2.4-3.5); Potassium 3.6 mEq/L (3.5-5.1); Total Protein 5.9 g/dL (6.4-8.9)
[2021-02-02] MEDS ORDERED: Ondansetron 4 MG/2 ML VIAL IVP PRN (23:56)
[2021-02-02] MEDS ORDERED: Melatonin 3 MG TABLET PO PRN (23:56)
[2021-02-02] MEDS ORDERED: Acetaminophen 325 MG TABLET PO PRN (23:56)
[2021-02-02] MEDS ORDERED: Naloxone 0.4 MG/ML INJ IVP PRN (23:56)
[2021-02-03] MEDS ORDERED: *HR* HYDROcodone/Acet 5/325 mg TABLET PO PRN
[2021-02-03 01:36] LABS: Calcium 9.6 mg/dL (8.6-10.3); Magnesium 2.5 mg/dL (1.6-2.6); Phosphorous 7.4 mg/dL (2.7-4.5); Potassium 4.2 mEq/L (3.5-5.1)
[2021-02-03] MEDS: 0.9 % Sodium Chloride 1,000 ML IVC SCH (07:33)
[2021-02-03] MEDS ORDERED: Calcium Acetate 667 MG CAPSULE PO PRN (07:39)
[2021-02-03] MEDS ORDERED: Gentamicin Oint 15 GM TUBE TP PRN (08:00)
[2021-02-03 08:38] LABS: Basophils % 1.1 %; Mean Platelet Volume 10.8 fL (9.4-12.4)
[2021-02-03 08:40] LABS: Basophils # 0.1 K/mcL (0.0-0.2); Eosinophils # 0.4 K/mcL (0.0-0.6); Eosinophils % 3.4 %; Hematocrit 24.6 % (37.5-50.1); Hemoglobin 8.5 g/dL (12.9-16.9); Immature Granulocytes % 5.8 % (0-4); Immature Platelets 4.2 % (1.1-6.1); Lymphocytes # 1.8 K/mcL (0.6-4.6); Lymphocytes % 14.5 %; Mean Corpuscular HGB Conc 34.6 g/dL (31.6-35.5); Mean Corpuscular Hemoglobin 33.1 pg (28.0-33.3); Mean Corpuscular Volume 95.7 fL (83.0-100.0); Monocytes % 8.2 %; Neutrophils # 8.2 K/mcL (1.6-8.9); Nucleated Red Blood Cells 2.2 /100 WBC (0); Platelet Count 156 K/mcL (140-400); Red Blood Count 2.57 M/mcL (4.19-5.50); Red Cell Distribution Width 13.7 % (11.5-14.5); White Blood Count 12.3 K/mcL (4.3-11.1)
[2021-02-03] MEDS ORDERED: NIFEdipine XL (24 HR) 60 MG TAB.ER.24 PO SCH (09:00)
[2021-02-03] MEDS ORDERED: allopurinoL 100 MG TABLET PO SCH (09:00)
[2021-02-03] MEDS ORDERED: FLUoxetine 20 MG CAPSULE PO SCH (09:00)
[2021-02-03] MEDS: Calcium Acetate 667 MG CAPSULE PO SCH ×2 (09:51→11:09)
[2021-02-03 10:59] VITALS: BP 116/71
[2021-02-04] MEDS ORDERED: Ergocalciferol (VIT D2) 50,000 UNIT (1.25MG) CAP PO SCH (09:00)
== END 2021-02-03 13:30 | disposition home or self-care (01) ==
LOC: EMEROOARM 19:53 → 2ANU 19:53 → SUATTDRO 22:34 → 2ANU 02-03 00:13
PROVIDERS: ADMIT Family Medicine; ATTEND Internal Medicine

== ENCOUNTER 2021-12-12 10:51 | Observation (INO) ==
[2021-12-12 12:19] LABS: Basophils # 0.1 K/mcL (0.0-0.2); Basophils % 0.5 %; Eosinophils # 0.3 K/mcL (0.0-0.6); Hematocrit 39.2 % (37.5-50.1); Hemoglobin 12.6 g/dL (12.9-16.9); Immature Granulocytes % 2.4 % (0-4); Lymphocytes # 1.4 K/mcL (0.6-4.6); Mean Corpuscular HGB Conc 32.1 g/dL (31.6-35.5); Mean Corpuscular Hemoglobin 32.4 pg (28.0-33.3); Mean Corpuscular Volume 100.8 fL (83.0-100.0); Mean Platelet Volume 10.9 fL (9.4-12.4); Monocytes # 0.9 K/mcL (0.0-1.3); Monocytes % 6.3 %; Neutrophils # 10.8 K/mcL (1.6-8.9); Platelet Count 199 K/mcL (140-400); Red Blood Count 3.89 M/mcL (4.19-5.50); Red Cell Distribution Width 13.7 % (11.5-14.5); Segmented Neutrophils % 78.8 %; White Blood Count 13.6 K/mcL (4.3-11.1)
[2021-12-12 12:39] LABS: Albumin 4.5 g/dL (3.5-5.7); Albumin/Globulin Ratio 1.8 (1.1-2.2); Bilirubin,Direct 0.1 mg/dL (0.0-0.2); Bilirubin,Indirect 0.5 mg/dL (0.0-1.0); Bilirubin,Total 0.6 mg/dL (0.3-1.0); Calcium 9.1 mg/dL (8.6-10.3); Globulin 2.5 g/dL (2.4-3.5); Potassium 3.8 mEq/L (3.5-5.1); Troponin I 0.07 ng/mL (< 0.04)
[2021-12-12 13:18] LABS: Influenza A PCR Negative (Negative); Influenza B PCR Negative (Negative); Resp. Syncytial Virus PCR Negative (Negative)
[2021-12-12 13:22] LABS: SARS-CoV-2 by PCR (In House) Negative (Negative)
[2021-12-12] MEDS ORDERED: Ondansetron 4 MG/2 ML VIAL IVP PRN (14:38)
[2021-12-12] MEDS ORDERED: Naloxone 0.4 MG/ML INJ IVP PRN (14:38)
[2021-12-12] MEDS ORDERED: Acetaminophen 325 MG TABLET PO PRN (14:38)
[2021-12-12] MEDS ORDERED: Perflutren Lipid Microsphere 1.3 ML in 0.9 % Sodium Chloride 8.7 ML IVP PRN (14:42)
[2021-12-12] MEDS ORDERED: Calcium Acetate 667 MG CAPSULE PO PRN (18:05)
[2021-12-12] MEDS ORDERED: Dextrose Gel 15 GM/37.5 ML TUBE PO PRN ×2 (18:14)
[2021-12-12] MEDS ORDERED: *HR* Dextrose 50 % in Water (Syg) 50 ML SYRINGE IVP PRN (18:14)
[2021-12-12] MEDS ORDERED: D5% in Water 1,000 ML IVC PRN (18:14)
[2021-12-12] MEDS: Insulin LISPRO 300 UNITS/3 ML VIAL SUBQ SCH ×2 (18:53→21:37)
[2021-12-12] MEDS: Azithromycin 500 MG in 0.9 % Sodium Chloride 250 ML IVPB SCH (19:04)
[2021-12-12] MEDS: Furosemide 40 MG/4 ML VIAL IVP SCH (19:04)
[2021-12-12] MEDS: FLUoxetine 20 MG CAPSULE PO SCH (20:32)
[2021-12-12 20:33] LABS: Hepatitis B Surface Antibody 6.86 mIU/mL
[2021-12-12 20:34] LABS: Adenovirus Not Detected (Not Detect); Bordetella Pertussis Not Detected (Not Detect); Chlamydophila pneumoniae Not Detected (Not Detect); Coronavirus 229E Not Detected (Not Detect); Coronavirus HKU1 Not Detected (Not Detect); Coronavirus NL63 Not Detected (Not Detect); Coronavirus OC43 Not Detected (Not Detect); Human Metapneumovirus Not Detected (Not Detect); Human Rhinovirus/Enterovirus Not Detected (Not Detect); Influenza A Subtype 2009 H1 Not Detected (Not Detect); Influenza B Not Detected (Not Detect); Mycoplasma pneumoniae Not Detected (Not Detect); Parainfluenza Virus 1 Not Detected (Not Detect); Parainfluenza Virus 2 Not Detected (Not Detect); Parainfluenza Virus 3 Not Detected (Not Detect); Parainfluenza Virus 4 Not Detected (Not Detect); Respiratory Syncytial Virus Not Detected (Not Detect); SARS-CoV-2 Not Detected (Not Detect)
[2021-12-12 20:44] LABS: Hepatitis B Surface Antigen Nonreactive (Nonreactive)
[2021-12-13 01:27] LABS: Basophils # 0.1 K/mcL (0.0-0.2); Basophils % 0.6 %; Eosinophils # 0.2 K/mcL (0.0-0.6); Eosinophils % 2.2 %; Hematocrit 35.2 % (37.5-50.1); Hemoglobin 11.2 g/dL (12.9-16.9); Lymphocytes # 2.2 K/mcL (0.6-4.6); Lymphocytes % 21.2 %; Mean Corpuscular HGB Conc 31.8 g/dL (31.6-35.5); Mean Corpuscular Hemoglobin 32.2 pg (28.0-33.3); Mean Corpuscular Volume 101.1 fL (83.0-100.0); Mean Platelet Volume 10.6 fL (9.4-12.4); Monocytes # 0.7 K/mcL (0.0-1.3); Monocytes % 6.8 %; Neutrophils # 6.9 K/mcL (1.6-8.9); Platelet Count 160 K/mcL (140-400); Red Blood Count 3.48 M/mcL (4.19-5.50); Red Cell Distribution Width 13.8 % (11.5-14.5); Segmented Neutrophils % 67.2 %; White Blood Count 10.2 K/mcL (4.3-11.1)
[2021-12-13 01:47] LABS: Calcium 8.5 mg/dL (8.6-10.3); Magnesium 2.2 mg/dL (1.6-2.6); Phosphorous 7.7 mg/dL (2.7-4.5); Potassium 3.6 mEq/L (3.5-5.1)
[2021-12-13 04:24] LABS: Estimated Average Glucose 111 mg/dl; Hemoglobin A1C 5.5 %
[2021-12-13] MEDS: *HR* Heparin 5,000 UNIT/ML VIAL SQ SCH ×2 (06:16→18:00)
[2021-12-13] MEDS ORDERED: 0.9 % Sodium Chloride 250 ML IVC PRN (09:14)
[2021-12-13] MEDS ORDERED: 0.9 % Sodium Chloride 1,000 ML PRIME SCH (09:15)
[2021-12-13] MEDS: Insulin LISPRO 300 UNITS/3 ML VIAL SUBQ SCH ×4 (09:36→20:39)
[2021-12-13] MEDS: cefTRIAXone 1,000 MG in 0.9 % Sodium Chloride Mini Bag 100 ML IVPB SCH (09:36)
[2021-12-13] MEDS: Furosemide 40 MG/4 ML VIAL IVP SCH (09:38)
[2021-12-13] MEDS: allopurinoL 100 MG TABLET PO SCH (09:38)
[2021-12-13] MEDS: lisinopriL 10 MG TABLET PO SCH (09:39)
[2021-12-13] MEDS: FLUoxetine 20 MG CAPSULE PO SCH ×2 (09:41→20:39)
[2021-12-13] MEDS: Calcium Acetate 667 MG CAPSULE PO SCH ×3 (09:55→18:06)
[2021-12-13 13:35] LABS: INR 1.1; Prothrombin Time 12.4 Seconds (9.4-12.1)
[2021-12-13] MEDS: Aspirin Enteric Coated 81 MG Tablet PO SCH (14:54)
[2021-12-13] MEDS ORDERED: Isovue-370 500 ML BOTTLE IVP ONE (17:28)
[2021-12-13] MEDS: carvediloL 6.25 MG TABLET PO SCH (18:00)
[2021-12-13] MEDS: Azithromycin 500 MG in 0.9 % Sodium Chloride 250 ML IVPB SCH (18:05)
[2021-12-14] MEDS: *HR* Heparin 5,000 UNIT/ML VIAL SQ SCH ×2 (05:10→15:57)
[2021-12-14 06:31] LABS: Basophils # 0.1 K/mcL (0.0-0.2); Basophils % 0.6 %; Eosinophils # 0.2 K/mcL (0.0-0.6); Eosinophils % 1.9 %; Hematocrit 32.3 % (37.5-50.1); Hemoglobin 10.5 g/dL (12.9-16.9); Immature Granulocytes % 2.2 % (0-4); Lymphocytes % 23.4 %; Mean Corpuscular HGB Conc 32.5 g/dL (31.6-35.5); Mean Corpuscular Hemoglobin 32.9 pg (28.0-33.3); Mean Corpuscular Volume 101.3 fL (83.0-100.0); Mean Platelet Volume 10.9 fL (9.4-12.4); Monocytes # 0.7 K/mcL (0.0-1.3); Neutrophils # 5.4 K/mcL (1.6-8.9); Platelet Count 155 K/mcL (140-400); Red Blood Count 3.19 M/mcL (4.19-5.50); Red Cell Distribution Width 13.4 % (11.5-14.5); Segmented Neutrophils % 63.9 %; White Blood Count 8.5 K/mcL (4.3-11.1)
[2021-12-14 06:54] LABS: Calcium 8.9 mg/dL (8.6-10.3); Magnesium 2.6 mg/dL (1.6-2.6); Phosphorous 10.7 mg/dL (2.7-4.5); Potassium 4.2 mEq/L (3.5-5.1)
[2021-12-14] MEDS: Calcium Acetate 667 MG CAPSULE PO SCH ×3 (07:15→15:46)
[2021-12-14] MEDS: Insulin LISPRO 300 UNITS/3 ML VIAL SUBQ SCH ×4 (07:15→21:23)
[2021-12-14] MEDS ORDERED: Water for inj. (sterile) 10 ML ONE (08:04)
[2021-12-14] MEDS: carvediloL 6.25 MG TABLET PO SCH ×2 (08:05→18:44)
[2021-12-14] MEDS: allopurinoL 100 MG TABLET PO SCH (08:05)
[2021-12-14] MEDS: FLUoxetine 20 MG CAPSULE PO SCH ×2 (08:05→21:19)
[2021-12-14] MEDS: Furosemide 40 MG/4 ML VIAL IVP SCH (08:08)
[2021-12-14] MEDS: cefTRIAXone 1,000 MG in 0.9 % Sodium Chloride Mini Bag 100 ML IVPB SCH (08:08)
[2021-12-14] MEDS: Aspirin Enteric Coated 81 MG Tablet PO SCH (08:08)
[2021-12-14] MEDS: lisinopriL 10 MG TABLET PO SCH (08:08)
[2021-12-14] MEDS: Isosorbide MONOnitrate (24 HR) 60 MG TAB.ER.24H PO SCH (08:10)
[2021-12-14] MEDS ORDERED: 0.9 % Sodium Chloride 250 ML IVC PRN (10:45)
[2021-12-14] MEDS ORDERED: Heparin 1,000 UNITS/500 mL 500 ML ONE (12:23)
[2021-12-14] MEDS ORDERED: Isovue-300 50ML VIAL IVP ONE (12:57)
[2021-12-14] MEDS ORDERED: lisinopriL 5 MG TABLET PO ONE (14:00)
[2021-12-14] MEDS: Azithromycin 500 MG in 0.9 % Sodium Chloride 250 ML IVPB SCH (21:20)
[2021-12-15 01:58] LABS: Basophils # 0.1 K/mcL (0.0-0.2); Basophils % 0.5 %; Eosinophils # 0.2 K/mcL (0.0-0.6); Eosinophils % 1.7 %; Hematocrit 33.9 % (37.5-50.1); Hemoglobin 11.1 g/dL (12.9-16.9); Immature Granulocytes % 1.9 % (0-4); Lymphocytes # 1.7 K/mcL (0.6-4.6); Lymphocytes % 17.1 %; Mean Corpuscular HGB Conc 32.7 g/dL (31.6-35.5); Mean Corpuscular Hemoglobin 32.5 pg (28.0-33.3); Mean Corpuscular Volume 99.1 fL (83.0-100.0); Mean Platelet Volume 10.7 fL (9.4-12.4); Monocytes # 0.8 K/mcL (0.0-1.3); Monocytes % 8.3 %; Platelet Count 166 K/mcL (140-400); Red Blood Count 3.42 M/mcL (4.19-5.50); Red Cell Distribution Width 13.4 % (11.5-14.5); Segmented Neutrophils % 70.5 %
[2021-12-15 02:00] LABS: Magnesium 2.2 mg/dL (1.6-2.6); Potassium 3.5 mEq/L (3.5-5.1)
[2021-12-15 02:19] LABS: Folate 6.4 ng/mL (3.0-16.0)
[2021-12-15] MEDS: *HR* Heparin 5,000 UNIT/ML VIAL SQ SCH (05:47)
[2021-12-15] MEDS ORDERED: Cyanocobalamin (B-12) 1,000 MCG/ML VIAL SQ ONE (07:12)
[2021-12-15 07:16] VITALS: TEMP 98
[2021-12-15] MEDS ORDERED: lisinopriL 10 MG TABLET PO SCH (09:00)
[2021-12-15] MEDS: cefTRIAXone 1,000 MG in 0.9 % Sodium Chloride Mini Bag 100 ML IVPB SCH (10:08)
[2021-12-15] MEDS: Aspirin Enteric Coated 81 MG Tablet PO SCH (10:11)
[2021-12-15] MEDS: allopurinoL 100 MG TABLET PO SCH (10:11)
[2021-12-15] MEDS: FLUoxetine 20 MG CAPSULE PO SCH (10:12)
[2021-12-15] MEDS: Calcium Acetate 667 MG CAPSULE PO SCH (10:12)
[2021-12-15] MEDS: Isosorbide MONOnitrate (24 HR) 60 MG TAB.ER.24H PO SCH (10:12)
[2021-12-15] MEDS: Insulin LISPRO 300 UNITS/3 ML VIAL SUBQ SCH (10:25)
[2021-12-15] MEDS: carvediloL 6.25 MG TABLET PO SCH (10:25)
[2021-12-15 10:57] VITALS: BP 109/65; PULSE 75; O2SAT 98
== END 2021-12-15 13:14 | disposition home or self-care (01) ==
LOC: EMEROOARM 10:51 → 2ANU 10:51 → SUATTDRO 17:12 → 2ANU 17:39
PROVIDERS: ADMIT Student in an Organized Health Care Education/Training Program; ATTEND Pharmacist

== ENCOUNTER 2022-03-08 06:07 | Inpatient (IN) ==
[2022-03-08] MEDS ORDERED: Papaverine 60 MG/2 ML VIAL IVP ONE (06:17)
[2022-03-08] MEDS ORDERED: DOBUTamine 1,000 MG/250 ML BAG ONE (06:19)
[2022-03-08] MEDS ORDERED: NiCARdipine 2.5 MG/10 ML Syringe IVPB ONE (06:19)
[2022-03-08] MEDS ORDERED: *HR* Propofol 200 MG/20 ML VIAL IVP ONE (06:28)
[2022-03-08] MEDS ORDERED: *HR* FentaNYL (PF) 1,000 MCG/20 ML VIAL ONE (06:29)
[2022-03-08] MEDS ORDERED: *HR* Midazolam HCl 5 MG/5 ML VIAL IVP ONE ×2 (06:29)
[2022-03-08] MEDS ORDERED: Lidocaine 2% Syringe 100 MG/5 ML ONE (06:33)
[2022-03-08] MEDS ORDERED: *HR* Rocuronium Bromide 50 MG/5 ML VIAL ONE ×3 (06:33→11:59)
[2022-03-08] MEDS ORDERED: Famotidine 20 MG/2 ML VIAL ONE (06:33)
[2022-03-08] MEDS ORDERED: Tranexamic Acid 1,000 MG/10 ML VIAL ONE (06:33)
[2022-03-08] MEDS ORDERED: *HR* Magnesium Sulfate 1 GM/2 ML VIAL ONE (06:38)
[2022-03-08] MEDS ORDERED: *HR* Norepinephrine 4 MG/4 ML VIAL IVC ONE (06:41)
[2022-03-08] MEDS ORDERED: Aspirin Enteric Coated 81 MG Tablet PO ONE (06:52)
[2022-03-08] MEDS ORDERED: ceFAZolin 2,000 MG in 0.9 % Sodium Chloride 100 ML IVPB ONE (06:52)
[2022-03-08] MEDS ORDERED: Vancomycin 1,750 MG/517.5 ML IV.SOLN IVPB ONE (06:53)
[2022-03-08] MEDS ORDERED: CeFAZolin Syr 3,000MG/30 ML 3,000 MG/30 ML SYRINGE IVPB ONE (06:57)
[2022-03-08] MEDS ORDERED: Buckersberg's Blood Cardioplegia PF ONE (07:00)
[2022-03-08] MEDS ORDERED: Heparin 15,000 UNIT in 0.9 % Sodium Chloride 500 ML IV ONE (07:00)
[2022-03-08] MEDS ORDERED: del Nido Cardioplegia Solution PF ONE ×2 (07:00)
[2022-03-08] MEDS ORDERED: Norepinephrine 4 MG in 0.9 % Sodium Chloride 250 ML IVC PRN (07:00)
[2022-03-08] MEDS: Chlorhexidine Rinse 15 ML MOUTHWASH MM SCH ×3 (07:09→19:12)
[2022-03-08] MEDS ORDERED: Aspirin 81 MG TAB.CHEW PO ONE (07:15)
[2022-03-08] MEDS ORDERED: SODIUM CHLORIDE 0.9% IVPB ONE (09:02)
[2022-03-08] MEDS ORDERED: DESMOPRESSIN ACETATE IVPB ONE (09:02)
[2022-03-08 09:55] LABS: Basophils % 0.4 %; Eosinophils # 0.2 K/mcL (0.0-0.6); Hematocrit 25.9 % (37.5-50.1); Hemoglobin 8.5 g/dL (12.9-16.9); Immature Granulocytes % 0.6 % (0-4); Lymphocytes # 1.4 K/mcL (0.6-4.6); Lymphocytes % 15.9 %; Mean Corpuscular HGB Conc 32.8 g/dL (31.6-35.5); Mean Corpuscular Hemoglobin 32.6 pg (28.0-33.3); Mean Corpuscular Volume 99.2 fL (83.0-100.0); Mean Platelet Volume 10.7 fL (9.4-12.4); Monocytes # 0.7 K/mcL (0.0-1.3); Monocytes % 7.3 %; Neutrophils # 6.6 K/mcL (1.6-8.9); Platelet Count 144 K/mcL (140-400); Red Blood Count 2.61 M/mcL (4.19-5.50); Red Cell Distribution Width 13.2 % (11.5-14.5); Segmented Neutrophils % 73.8 %
[2022-03-08 09:58] LABS: ABG Base Excess -11 mEq/L (-2 to 3); ABG Chloride 100 mEq/L (98-107); ABG Glucose 96 mg/dL (60-95); ABG HCO3 15 mEq/L (21-27); ABG Ionized Calcium 0.91 mmol/L (1.15-1.35); ABG Oxygen Saturation 97 % (95-98); ABG PCO2 34 mmHg (35-45); ABG PH 7.26 pH Units (7.32-7.45); ABG PO2 103 mmHg (85-104); ABG TCO2 16 mEq/L (20-26)
[2022-03-08 10:02] LABS: INR 1.3; Prothrombin Time 14.7 Seconds (9.4-12.1)
[2022-03-08] MEDS ORDERED: Protamine Sulfate 250 MG/25 ML VIAL IVP ONE (10:17)
[2022-03-08] MEDS ORDERED: Protamine Sulfate 50 MG/5 ML VIAL IVP ONE (10:17)
[2022-03-08] MEDS ORDERED: Calcium Gluconate 1,000 MG/10 ML VIAL ONE ×2 (10:17→11:07)
[2022-03-08] MEDS ORDERED: Calcium Gluconate 1gm/50mL 1 GM/50 ML BAG IVPB PRN (10:23)
[2022-03-08] MEDS ORDERED: Insulin Regular, Human 100 UNIT/ML IV PRN (10:23)
[2022-03-08] MEDS ORDERED: Naloxone 0.4 MG/ML INJ IVP PRN (10:23)
[2022-03-08] MEDS ORDERED: *HR* Dextrose 50 % in Water (Syg) 50 ML SYRINGE IVP PRN (10:23)
[2022-03-08] MEDS ORDERED: Acetaminophen 325 MG TABLET PO PRN (10:23)
[2022-03-08] MEDS ORDERED: Potassium Chloride 40 MEQ/200 ML BAG IVPB PRN (10:23)
[2022-03-08 10:34] LABS: ABG Base Excess -12 mEq/L (-2 to 3); ABG Chloride 101 mEq/L (98-107); ABG Glucose 156 mg/dL (60-95); ABG HCO3 15 mEq/L (21-27); ABG Ionized Calcium 1.01 mmol/L (1.15-1.35); ABG Oxygen Saturation 100 % (95-98); ABG PCO2 38 mmHg (35-45); ABG PO2 198 mmHg (85-104); ABG TCO2 16 mEq/L (20-26)
[2022-03-08] MEDS ORDERED: Albumin Human 5% 12.5 GM/250 ML IV.SOLN IVPB PRN (10:35)
[2022-03-08 10:54] LABS: ABG Base Excess -7 mEq/L (-2 to 3); ABG Chloride 99 mEq/L (98-107); ABG Glucose 138 mg/dL (60-95); ABG HCO3 19 mEq/L (21-27); ABG Ionized Calcium 0.89 mmol/L (1.15-1.35); ABG Oxygen Saturation 100 % (95-98); ABG PCO2 42 mmHg (35-45); ABG PH 7.27 pH Units (7.32-7.45); ABG PO2 565 mmHg (85-104); ABG TCO2 21 mEq/L (20-26)
[2022-03-08] MEDS ORDERED: Furosemide 40 MG/4 ML VIAL ONE (11:02)
[2022-03-08 11:08] LABS: ABG Base Excess -5 mEq/L (-2 to 3); ABG Chloride 101 mEq/L (98-107); ABG Glucose 138 mg/dL (60-95); ABG HCO3 20 mEq/L (21-27); ABG Ionized Calcium 0.86 mmol/L (1.15-1.35); ABG Oxygen Saturation 100 % (95-98); ABG PCO2 38 mmHg (35-45); ABG PH 7.33 pH Units (7.32-7.45); ABG PO2 564 mmHg (85-104); ABG TCO2 22 mEq/L (20-26)
[2022-03-08] MEDS ORDERED: *HR* Dextrose 50 % in Water (Syg) 50 ML SYRINGE ONE (11:12)
[2022-03-08] MEDS ORDERED: Sodium Bicarbonate 50 MEQ/50 ML VIAL ONE (11:13)
[2022-03-08 11:28] LABS: ABG Base Excess -7 mEq/L (-2 to 3); ABG Chloride 104 mEq/L (98-107); ABG Glucose 143 mg/dL (60-95); ABG HCO3 18 mEq/L (21-27); ABG Ionized Calcium 0.88 mmol/L (1.15-1.35); ABG Oxygen Saturation 100 % (95-98); ABG PCO2 36 mmHg (35-45); ABG PH 7.32 pH Units (7.32-7.45); ABG PO2 519 mmHg (85-104); ABG TCO2 19 mEq/L (20-26)
[2022-03-08 11:58] LABS: ABG Base Excess -8 mEq/L (-2 to 3); ABG Chloride 104 mEq/L (98-107); ABG Glucose 202 mg/dL (60-95); ABG HCO3 18 mEq/L (21-27); ABG Ionized Calcium 1.07 mmol/L (1.15-1.35); ABG Oxygen Saturation 100 % (95-98); ABG PCO2 36 mmHg (35-45); ABG PO2 510 mmHg (85-104); ABG TCO2 19 mEq/L (20-26)
[2022-03-08 13:11] LABS: ABG Base Excess -8 mEq/L (-2 to 3); ABG HCO3 19 mEq/L (21-27); ABG Oxygen Saturation 95 % (95-98); ABG PCO2 41 mmHg (35-45); ABG PH 7.26 pH Units (7.32-7.45); ABG PO2 86 mmHg (85-104); ABG TCO2 20 mEq/L (20-26); Blood Gas VT 500 cc
[2022-03-08 13:26] LABS: Basophils % 0.2 %; Eosinophils % 0.1 %; Hematocrit 27.4 % (37.5-50.1); Hemoglobin 9.5 g/dL (12.9-16.9); Immature Granulocytes % 1.1 % (0-4); Lymphocytes # 0.7 K/mcL (0.6-4.6); Lymphocytes % 3.6 %; Mean Corpuscular HGB Conc 34.7 g/dL (31.6-35.5); Mean Corpuscular Hemoglobin 33.7 pg (28.0-33.3); Mean Corpuscular Volume 97.2 fL (83.0-100.0); Mean Platelet Volume 10.6 fL (9.4-12.4); Monocytes # 0.8 K/mcL (0.0-1.3); Monocytes % 3.9 %; Platelet Count 132 K/mcL (140-400); Red Blood Count 2.82 M/mcL (4.19-5.50); Red Cell Distribution Width 13.1 % (11.5-14.5); Segmented Neutrophils % 91.1 %
[2022-03-08 13:32] LABS: INR 1.3; Prothrombin Time 14.3 Seconds (9.4-12.1)
[2022-03-08 13:37] LABS: Neutrophils # 17.9 K/mcL (1.6-8.9); White Blood Count 19.6 K/mcL (4.3-11.1)
[2022-03-08] MEDS: niCARdipine 20 MG/200 ML MLS IVC SCH ×2 (14:00→19:08)
[2022-03-08 14:20] LABS: Magnesium 3.2 mg/dL (1.6-2.6); Potassium 5.1 mEq/L (3.5-5.1)
[2022-03-08] MEDS: *HR* FentaNYL (PF) 100 MCG/2 ML VIAL IVP PRN ×3 (14:24→21:12)
[2022-03-08] MEDS: *HR* OxyCODONE/APAP 5/325 TABLET PO PRN ×2 (14:27→19:12)
[2022-03-08] MEDS: Pantoprazole 40 MG VIAL IVP SCH (14:28)
[2022-03-08] MEDS: DOBUTamine 1,000 MG/250 ML BAG IVC SCH (14:56)
[2022-03-08] MEDS: Norepinephrine 4 MG/254 ML IV.SOLN IVC SCH ×2 (14:56→19:09)
[2022-03-08] MEDS: CeFAZolin 2 GM/120 ML BAG IVPB SCH ×2 (15:40→23:00)
[2022-03-08 16:06] LABS: ABG Base Excess -8 mEq/L (-2 to 3); ABG HCO3 19 mEq/L (21-27); ABG Oxygen Saturation 94 % (95-98); ABG PCO2 45 mmHg (35-45); ABG PH 7.23 pH Units (7.32-7.45); ABG PO2 85 mmHg (85-104); ABG TCO2 20 mEq/L (20-26); Blood Gas VT 500 cc
[2022-03-08 17:09] LABS: ABG Base Excess -8 mEq/L (-2 to 3); ABG HCO3 17 mEq/L (21-27); ABG Oxygen Saturation 96 % (95-98); ABG PCO2 34 mmHg (35-45); ABG PH 7.33 pH Units (7.32-7.45); ABG PO2 85 mmHg (85-104); ABG TCO2 19 mEq/L (20-26); Blood Gas VT 500 cc
[2022-03-08 20:26] LABS: ABG Base Excess -9 mEq/L (-2 to 3); ABG HCO3 17 mEq/L (21-27); ABG Oxygen Saturation 95 % (95-98); ABG PCO2 36 mmHg (35-45); ABG PH 7.27 pH Units (7.32-7.45); ABG PO2 86 mmHg (85-104); ABG TCO2 18 mEq/L (20-26); Blood Gas Modality CPAP/PS; Blood Gas Pressure Support 8 cm H2O
[2022-03-08 22:35] LABS: ABG Base Excess -10 mEq/L (-2 to 3); ABG HCO3 16 mEq/L (21-27); ABG Oxygen Saturation 94 % (95-98); ABG PCO2 36 mmHg (35-45); ABG PH 7.26 pH Units (7.32-7.45); ABG PO2 82 mmHg (85-104); ABG TCO2 17 mEq/L (20-26)
[2022-03-09] MEDS: Ipratropium/Albuterol Neb 3 ML IH SCH ×6 (00:07→20:45)
[2022-03-09] MEDS: *HR* FentaNYL (PF) 100 MCG/2 ML VIAL IVP PRN ×3 (00:11→06:22)
[2022-03-09] MEDS: niCARdipine 20 MG/200 ML MLS IVC SCH ×3 (03:11→14:40)
[2022-03-09 03:17] LABS: Basophils % 0.1 %; Hematocrit 28.6 % (37.5-50.1); Hemoglobin 9.5 g/dL (12.9-16.9); Immature Granulocytes % 0.4 % (0-4); Lymphocytes # 0.4 K/mcL (0.6-4.6); Lymphocytes % 3.5 %; Mean Corpuscular HGB Conc 33.2 g/dL (31.6-35.5); Mean Corpuscular Hemoglobin 32.4 pg (28.0-33.3); Mean Corpuscular Volume 97.6 fL (83.0-100.0); Monocytes # 0.4 K/mcL (0.0-1.3); Monocytes % 3.8 %; Neutrophils # 9.3 K/mcL (1.6-8.9); Platelet Count 112 K/mcL (140-400); Red Blood Count 2.93 M/mcL (4.19-5.50); Red Cell Distribution Width 13.4 % (11.5-14.5); Segmented Neutrophils % 92.2 %; White Blood Count 10.1 K/mcL (4.3-11.1)
[2022-03-09 03:22] LABS: INR 1.2; Prothrombin Time 13.2 Seconds (9.4-12.1)
[2022-03-09 03:25] LABS: Activated Partial Thrombo Time 31.5 Seconds (26.0-36.0)
[2022-03-09 03:55] LABS: Calcium 9.5 mg/dL (8.6-10.3); Magnesium 3.3 mg/dL (1.6-2.6); Potassium 6.3 mEq/L (3.5-5.1)
[2022-03-09] MEDS: *HR* OxyCODONE/APAP 5/325 TABLET PO PRN ×3 (04:57→14:34)
[2022-03-09] MEDS: Ondansetron 4 MG/2 ML VIAL IVP PRN (05:40)
[2022-03-09] MEDS: Chlorhexidine Rinse 15 ML MOUTHWASH MM SCH ×2 (07:47→20:17)
[2022-03-09 08:20] LABS: ABG Base Excess -10 mEq/L (-2 to 3); ABG HCO3 16 mEq/L (21-27); ABG Oxygen Saturation 97 % (95-98); ABG PCO2 35 mmHg (35-45); ABG PH 7.26 pH Units (7.32-7.45); ABG PO2 103 mmHg (85-104); ABG TCO2 17 mEq/L (20-26)
[2022-03-09] MEDS ORDERED: 0.9 % Sodium Chloride 250 ML IVC PRN (08:41)
[2022-03-09] MEDS ORDERED: 0.9 % Sodium Chloride 1,000 ML PRIME SCH (08:45)
[2022-03-09] MEDS: CeFAZolin 2 GM/120 ML BAG IVPB SCH ×3 (09:06→23:24)
[2022-03-09] MEDS: Aspirin Enteric Coated 81 MG Tablet PO SCH (09:07)
[2022-03-09] MEDS: Pantoprazole 40 MG VIAL IVP SCH (09:07)
[2022-03-09] MEDS: Norepinephrine 4 MG/254 ML IV.SOLN IVC SCH (10:15)
[2022-03-09] MEDS: DOBUTamine 1,000 MG/250 ML BAG IVC SCH (12:13)
[2022-03-09 12:26] LABS: Hepatitis B Surface Antibody > 850.00 mIU/mL
[2022-03-09 12:36] LABS: Hepatitis B Surface Antigen Nonreactive (Nonreactive)
[2022-03-09] MEDS ORDERED: Ketorolac 30 MG/ML VIAL IVP ONE (16:01)
[2022-03-09] MEDS: Insulin LISPRO 300 UNITS/3 ML VIAL SUBQ SCH ×2 (16:31→20:17)
[2022-03-09] MEDS: *HR* Heparin 5,000 UNIT/ML VIAL SQ SCH (21:54)
[2022-03-09] MEDS: Ketorolac 30 MG/ML VIAL IVP PRN (21:54)
[2022-03-10] MEDS: Ipratropium/Albuterol Neb 3 ML IH SCH ×7 (00:13→23:33)
[2022-03-10 03:27] LABS: Basophils % 0.2 %; Hematocrit 27.6 % (37.5-50.1); Hemoglobin 9.1 g/dL (12.9-16.9); Immature Granulocytes % 0.5 % (0-4); Red Cell Distribution Width 13.8 % (11.5-14.5)
[2022-03-10 03:29] LABS: Eosinophils % 0.4 %; Immature Platelets 3.4 % (1.1-6.1); Lymphocytes # 0.7 K/mcL (0.6-4.6); Lymphocytes % 6.9 %; Mean Corpuscular Hemoglobin 32.6 pg (28.0-33.3); Mean Corpuscular Volume 98.9 fL (83.0-100.0); Monocytes # 0.8 K/mcL (0.0-1.3); Monocytes % 7.9 %; Neutrophils # 8.4 K/mcL (1.6-8.9); Red Blood Count 2.79 M/mcL (4.19-5.50); Segmented Neutrophils % 84.1 %
[2022-03-10 03:31] LABS: Platelet Count 95 K/mcL (140-400)
[2022-03-10 03:49] LABS: Calcium 9.5 mg/dL (8.6-10.3); Magnesium 2.6 mg/dL (1.6-2.6); Potassium 4.4 mEq/L (3.5-5.1)
[2022-03-10] MEDS: Ondansetron 4 MG/2 ML VIAL IVP PRN ×2 (04:24→10:57)
[2022-03-10] MEDS: *HR* Heparin 5,000 UNIT/ML VIAL SQ SCH ×3 (05:01→21:04)
[2022-03-10] MEDS: Ketorolac 30 MG/ML VIAL IVP PRN ×2 (07:33→13:45)
[2022-03-10] MEDS ORDERED: Amiodarone Premix 150 MG/100 ML BAG IVPB ONE (08:30)
[2022-03-10] MEDS: Insulin LISPRO 300 UNITS/3 ML VIAL SUBQ SCH ×4 (08:31→20:07)
[2022-03-10] MEDS: Pantoprazole 40 MG VIAL IVP SCH (08:40)
[2022-03-10] MEDS ORDERED: Amiodarone Premix 360 MG/200 ML BAG IVC ONE (08:50)
[2022-03-10] MEDS: CeFAZolin 2 GM/120 ML BAG IVPB SCH (09:19)
[2022-03-10] MEDS: Chlorhexidine Rinse 15 ML MOUTHWASH MM SCH ×2 (10:01→20:07)
[2022-03-10] MEDS: Aspirin Enteric Coated 81 MG Tablet PO SCH (10:01)
[2022-03-10] MEDS: DOBUTamine 1,000 MG/250 ML BAG IVC SCH (11:19)
[2022-03-10] MEDS: *HR* OxyCODONE/APAP 5/325 TABLET PO PRN (11:26)
[2022-03-10] MEDS ORDERED: *HR* Promethazine 25 MG/ML VIAL IM PRN (12:43)
[2022-03-10] MEDS: Amiodarone Premix 360 MG/200 ML BAG IVC SCH (14:47)
[2022-03-10] MEDS ORDERED: Bisacodyl 10 MG RECTAL SUPPOSITORY RC PRN (15:24)
[2022-03-11] MEDS: Amiodarone Premix 360 MG/200 ML BAG IVC SCH (01:00)
[2022-03-11] MEDS: Ipratropium/Albuterol Neb 3 ML IH SCH ×6 (03:19→23:53)
[2022-03-11 03:21] LABS: Eosinophils % 0.4 %; Hematocrit 25.6 % (37.5-50.1); Hemoglobin 8.4 g/dL (12.9-16.9); Mean Corpuscular HGB Conc 32.8 g/dL (31.6-35.5); Mean Corpuscular Hemoglobin 32.6 pg (28.0-33.3); Mean Corpuscular Volume 99.2 fL (83.0-100.0); Red Blood Count 2.58 M/mcL (4.19-5.50); Red Cell Distribution Width 13.7 % (11.5-14.5)
[2022-03-11 03:23] LABS: Basophils % 0.1 %; Immature Granulocytes % 0.7 % (0-4); Immature Platelets 4.3 % (1.1-6.1); Mean Platelet Volume 11.7 fL (9.4-12.4); Monocytes # 0.8 K/mcL (0.0-1.3); Monocytes % 7.1 %; Segmented Neutrophils % 82.7 %; White Blood Count 11.2 K/mcL (4.3-11.1)
[2022-03-11 03:24] LABS: Neutrophils # 9.3 K/mcL (1.6-8.9); Platelet Count 86 K/mcL (140-400)
[2022-03-11 03:38] LABS: Calcium 9.3 mg/dL (8.6-10.3); Magnesium 2.7 mg/dL (1.6-2.6); Potassium 3.8 mEq/L (3.5-5.1)
[2022-03-11] MEDS: *HR* Heparin 5,000 UNIT/ML VIAL SQ SCH ×3 (06:28→20:32)
[2022-03-11] MEDS: Aspirin Enteric Coated 81 MG Tablet PO SCH ×2 (07:54→09:56)
[2022-03-11] MEDS: Pantoprazole 40 MG VIAL IVP SCH ×2 (07:54→09:59)
[2022-03-11] MEDS: Chlorhexidine Rinse 15 ML MOUTHWASH MM SCH ×3 (07:55→20:33)
[2022-03-11] MEDS: Ondansetron 4 MG/2 ML VIAL IVP PRN (08:02)
[2022-03-11] MEDS ORDERED: Insulin Regular, Human 100 UNIT/ML IV PRN (08:22)
[2022-03-11] MEDS ORDERED: Amiodarone Premix 360 MG/200 ML BAG IVC SCH (08:22)
[2022-03-11] MEDS ORDERED: Acetaminophen 325 MG TABLET PO PRN (08:22)
[2022-03-11] MEDS ORDERED: Ondansetron 4 MG/2 ML VIAL IVP PRN (08:22)
[2022-03-11] MEDS ORDERED: 0.9 % Sodium Chloride 250 ML IVC PRN ×2 (08:22→08:50)
[2022-03-11] MEDS ORDERED: Bisacodyl 10 MG RECTAL SUPPOSITORY RC PRN (08:22)
[2022-03-11] MEDS ORDERED: 0.9 % Sodium Chloride 1,000 ML PRIME SCH (08:22)
[2022-03-11] MEDS ORDERED: *HR* Promethazine 25 MG/ML VIAL IM PRN (08:22)
[2022-03-11] MEDS ORDERED: Albumin Human 5% 12.5 GM/250 ML IV.SOLN IVPB PRN (08:22)
[2022-03-11] MEDS ORDERED: Naloxone 0.4 MG/ML INJ IVP PRN (08:22)
[2022-03-11] MEDS ORDERED: *HR* Dextrose 50 % in Water (Syg) 50 ML SYRINGE IVP PRN (08:22)
[2022-03-11] MEDS: *HR* OxyCODONE/APAP 5/325 TABLET PO PRN ×2 (08:32→14:58)
[2022-03-11] MEDS ORDERED: Ethyl Chloride Spray Bottle (104 SPRAY/BOTTLE) TP PRN (08:50)
[2022-03-11] MEDS: allopurinoL 100 MG TABLET PO SCH (10:10)
[2022-03-11] MEDS: Insulin LISPRO 300 UNITS/3 ML VIAL SUBQ SCH ×4 (10:31→20:32)
[2022-03-11] MEDS: *HR* Amiodarone 200 MG TABLET PO SCH ×2 (10:37→20:31)
[2022-03-12 01:19] LABS: Basophils % 0.3 %; Eosinophils # 0.2 K/mcL (0.0-0.6); Eosinophils % 1.5 %; Hematocrit 28.1 % (37.5-50.1); Hemoglobin 9.1 g/dL (12.9-16.9); Immature Granulocytes % 0.6 % (0-4); Lymphocytes # 1.2 K/mcL (0.6-4.6); Lymphocytes % 10.3 %; Mean Corpuscular HGB Conc 32.4 g/dL (31.6-35.5); Mean Corpuscular Volume 98.9 fL (83.0-100.0); Mean Platelet Volume 11.3 fL (9.4-12.4); Monocytes # 0.8 K/mcL (0.0-1.3); Neutrophils # 9.1 K/mcL (1.6-8.9); Platelet Count 101 K/mcL (140-400); Red Blood Count 2.84 M/mcL (4.19-5.50); Red Cell Distribution Width 13.7 % (11.5-14.5); Segmented Neutrophils % 80.3 %; White Blood Count 11.4 K/mcL (4.3-11.1)
[2022-03-12 01:38] LABS: Calcium 9.5 mg/dL (8.6-10.3); Magnesium 2.5 mg/dL (1.6-2.6); Potassium 4.3 mEq/L (3.5-5.1)
[2022-03-12] MEDS: Ipratropium/Albuterol Neb 3 ML IH SCH ×6 (03:54→23:41)
[2022-03-12] MEDS: *HR* Heparin 5,000 UNIT/ML VIAL SQ SCH ×3 (05:17→20:26)
[2022-03-12] MEDS: DOBUTamine 1,000 MG/250 ML BAG IVC SCH ×2 (06:16→09:12)
[2022-03-12] MEDS: Insulin LISPRO 300 UNITS/3 ML VIAL SUBQ SCH ×4 (09:11→20:28)
[2022-03-12] MEDS: allopurinoL 100 MG TABLET PO SCH (09:49)
[2022-03-12] MEDS: *HR* OxyCODONE/APAP 5/325 TABLET PO PRN (09:49)
[2022-03-12] MEDS: *HR* Amiodarone 200 MG TABLET PO SCH ×2 (09:49→20:25)
[2022-03-12] MEDS: Chlorhexidine Rinse 15 ML MOUTHWASH MM SCH ×2 (09:50→20:25)
[2022-03-12] MEDS: Aspirin Enteric Coated 81 MG Tablet PO SCH (09:50)
[2022-03-12] MEDS: Pantoprazole 40 MG VIAL IVP SCH (09:51)
[2022-03-13 02:03] LABS: Basophils % 0.3 %; Eosinophils # 0.4 K/mcL (0.0-0.6); Eosinophils % 3.1 %; Hematocrit 27.5 % (37.5-50.1); Hemoglobin 9.1 g/dL (12.9-16.9); Immature Granulocytes % 0.7 % (0-4); Lymphocytes # 1.2 K/mcL (0.6-4.6); Lymphocytes % 10.1 %; Mean Corpuscular HGB Conc 33.1 g/dL (31.6-35.5); Mean Corpuscular Hemoglobin 32.7 pg (28.0-33.3); Mean Corpuscular Volume 98.9 fL (83.0-100.0); Mean Platelet Volume 11.9 fL (9.4-12.4); Monocytes # 0.7 K/mcL (0.0-1.3); Monocytes % 5.5 %; Neutrophils # 9.5 K/mcL (1.6-8.9); Platelet Count 105 K/mcL (140-400); Red Blood Count 2.78 M/mcL (4.19-5.50); Red Cell Distribution Width 13.4 % (11.5-14.5); Segmented Neutrophils % 80.3 %; White Blood Count 11.8 K/mcL (4.3-11.1)
[2022-03-13] MEDS: *HR* OxyCODONE/APAP 5/325 TABLET PO PRN ×3 (02:25→21:20)
[2022-03-13 02:30] LABS: Alanine Aminotransferase < 3 Units/L (7-52); Albumin 3.4 g/dL (3.5-5.7); Albumin/Globulin Ratio 1.8 (1.1-2.2); Alkaline Phosphatase 63 Units/L (34-104); Aspartate Amino Transferase 20 Units/L (13-39); BUN/Creatinine Ratio 7 (6-26); Bilirubin,Total 0.3 mg/dL (0.3-1.0); Blood Urea Nitrogen 82 mg/dL (6-20); Carbon Dioxide 22 mEq/L (23-29); Chloride 95 mEq/L (98-107); Globulin 1.9 g/dL (2.4-3.5); Glucose 95 mg/dL (70-105); Osmolality,Calculated 307 (280-300); Potassium 4.5 mEq/L (3.5-5.1); Sodium 136 mEq/L (136-145); Total Protein 5.3 g/dL (6.4-8.9); eGFR For African Americans 6 (> 60); eGFR For Non-African Americans 5 (> 60)
[2022-03-13] MEDS: Ipratropium/Albuterol Neb 3 ML IH SCH ×5 (03:44→20:12)
[2022-03-13 04:36] LABS: Calcium 8.9 mg/dL (8.6-10.3); Magnesium 2.7 mg/dL (1.6-2.6); Potassium 4.5 mEq/L (3.5-5.1)
[2022-03-13] MEDS: *HR* Heparin 5,000 UNIT/ML VIAL SQ SCH ×3 (06:48→21:20)
[2022-03-13 07:10] LABS: ABG Base Excess -9 mEq/L (-2 to 3); ABG Chloride 106 mEq/L (98-107); ABG Glucose 184 mg/dL (60-95); ABG HCO3 17 mEq/L (21-27); ABG Ionized Calcium 1.07 mmol/L (1.15-1.35); ABG Oxygen Saturation 99 % (95-98); ABG PCO2 32 mmHg (35-45); ABG PH 7.32 pH Units (7.32-7.45); ABG PO2 155 mmHg (85-104); ABG TCO2 18 mEq/L (20-26)
[2022-03-13] MEDS ORDERED: *HR* Heparin 10,000 UNIT/10 ML VIAL IV PRN (08:28)
[2022-03-13] MEDS ORDERED: 0.9 % Sodium Chloride 250 ML IVC PRN (08:28)
[2022-03-13] MEDS ORDERED: Ethyl Chloride Spray Bottle (104 SPRAY/BOTTLE) TP PRN (08:28)
[2022-03-13] MEDS: Aspirin Enteric Coated 81 MG Tablet PO SCH (08:33)
[2022-03-13] MEDS: Pantoprazole 40 MG VIAL IVP SCH (08:33)
[2022-03-13] MEDS: Chlorhexidine Rinse 15 ML MOUTHWASH MM SCH ×2 (08:33→21:21)
[2022-03-13] MEDS: allopurinoL 100 MG TABLET PO SCH (08:33)
[2022-03-13] MEDS: Insulin LISPRO 300 UNITS/3 ML VIAL SUBQ SCH ×4 (08:34→20:06)
[2022-03-13] MEDS: DOBUTamine 1,000 MG/250 ML BAG IVC SCH (08:34)
[2022-03-13] MEDS: *HR* Amiodarone 200 MG TABLET PO SCH ×2 (08:34→21:20)
[2022-03-13] MEDS ORDERED: hydrOXYzine pamoate 25 MG CAPSULE PO PRN (21:53)
[2022-03-14] MEDS: Ipratropium/Albuterol Neb 3 ML IH SCH ×5 (00:40→15:49)
[2022-03-14] MEDS ORDERED: *HR* LORazepam 0.5 MG TABLET PO ONE (02:25)
[2022-03-14 05:39] LABS: Basophils % 0.3 %; Eosinophils # 0.3 K/mcL (0.0-0.6); Eosinophils % 2.9 %; Hematocrit 29.7 % (37.5-50.1); Hemoglobin 9.9 g/dL (12.9-16.9); Immature Granulocytes % 1.4 % (0-4); Lymphocytes # 1.3 K/mcL (0.6-4.6); Lymphocytes % 10.9 %; Mean Corpuscular HGB Conc 33.3 g/dL (31.6-35.5); Mean Corpuscular Hemoglobin 32.6 pg (28.0-33.3); Mean Corpuscular Volume 97.7 fL (83.0-100.0); Mean Platelet Volume 11.7 fL (9.4-12.4); Monocytes # 0.8 K/mcL (0.0-1.3); Monocytes % 6.6 %; Platelet Count 138 K/mcL (140-400); Red Blood Count 3.04 M/mcL (4.19-5.50); Red Cell Distribution Width 13.4 % (11.5-14.5); Segmented Neutrophils % 77.9 %; White Blood Count 11.5 K/mcL (4.3-11.1)
[2022-03-14 05:57] LABS: Calcium 9.7 mg/dL (8.6-10.3); Magnesium 2.6 mg/dL (1.6-2.6); Potassium 4.5 mEq/L (3.5-5.1)
[2022-03-14] MEDS: *HR* Heparin 5,000 UNIT/ML VIAL SQ SCH ×2 (06:41→14:52)
[2022-03-14] MEDS: Chlorhexidine Rinse 15 ML MOUTHWASH MM SCH (07:29)
[2022-03-14] MEDS: Aspirin Enteric Coated 81 MG Tablet PO SCH (07:30)
[2022-03-14] MEDS: *HR* Amiodarone 200 MG TABLET PO SCH (07:30)
[2022-03-14] MEDS: Pantoprazole 40 MG VIAL IVP SCH (07:30)
[2022-03-14] MEDS: DOBUTamine 1,000 MG/250 ML BAG IVC SCH (07:37)
[2022-03-14] MEDS: Insulin LISPRO 300 UNITS/3 ML VIAL SUBQ SCH ×2 (07:37→12:31)
[2022-03-14] MEDS: allopurinoL 100 MG TABLET PO SCH (09:39)
[2022-03-14 11:41] VITALS: TEMP 98.1
[2022-03-14] MEDS: *HR* OxyCODONE/APAP 5/325 TABLET PO PRN ×2 (13:52→17:22)
[2022-03-14 14:38] LABS: Influenza A PCR Negative (Negative); Influenza B PCR Negative (Negative); Resp. Syncytial Virus PCR Negative (Negative)
[2022-03-14 14:50] LABS: SARS-CoV-2 by PCR (In House) Negative (Negative)
[2022-03-14 15:55] VITALS: PULSE 62
[2022-03-14 15:58] VITALS: BP 123/87; O2SAT 100
== END 2022-03-14 18:03 | DRG 235 ==
LOC: SAMDAY 06:07 → ICNU 13:01 → 2NNU 03-11 19:03
PROVIDERS: ADMIT Thoracic Surgery (Cardiothoracic Vascular Surgery); ATTEND Thoracic Surgery (Cardiothoracic Vascular Surgery)

== ENCOUNTER 2022-03-21 13:48 | Inpatient (IN) ==
[2022-03-21] MEDS ORDERED: Naloxone 0.4 MG/ML INJ IVP PRN (16:10)
[2022-03-21] MEDS ORDERED: Ondansetron ODT 4 MG TAB.RAPDIS SL PRN (16:26)
[2022-03-21] MEDS ORDERED: *HR* Promethazine 25 MG/ML VIAL IM PRN (16:26)
[2022-03-21] MEDS: D5% in 0.9% NACL 1,000 ML IVC SCH (16:55)
[2022-03-21] MEDS: Calcium Acetate 667 MG CAPSULE PO SCH ×2 (16:55→18:02)
[2022-03-21] MEDS ORDERED: D5% in Water 1,000 ML IVC PRN (16:59)
[2022-03-21] MEDS ORDERED: Dextrose 4 GM Chewable Tablets PO PRN ×2 (16:59)
[2022-03-21] MEDS ORDERED: *HR* Dextrose 50 % in Water (Syg) 50 ML SYRINGE IVP PRN (16:59)
[2022-03-21 17:17] LABS: Basophils % 0.3 %; Eosinophils # 0.2 K/mcL (0.0-0.6); Hematocrit 26.2 % (37.5-50.1); Hemoglobin 8.7 g/dL (12.9-16.9); Immature Granulocytes % 3.4 % (0-4); Lymphocytes # 1.1 K/mcL (0.6-4.6); Lymphocytes % 9.3 %; Magnesium 2.9 mg/dL (1.6-2.6); Mean Corpuscular HGB Conc 33.2 g/dL (31.6-35.5); Mean Corpuscular Hemoglobin 33.5 pg (28.0-33.3); Mean Corpuscular Volume 100.8 fL (83.0-100.0); Mean Platelet Volume 10.8 fL (9.4-12.4); Monocytes # 0.7 K/mcL (0.0-1.3); Monocytes % 6.3 %; Neutrophils # 9.3 K/mcL (1.6-8.9); Phosphorous 5.6 mg/dL (2.7-4.5); Platelet Count 166 K/mcL (140-400); Red Cell Distribution Width 13.3 % (11.5-14.5); Segmented Neutrophils % 78.7 %; White Blood Count 11.8 K/mcL (4.3-11.1)
[2022-03-21 17:25] LABS: Estimated Average Glucose 126 mg/dl
[2022-03-21] MEDS: Acetaminophen 325 MG TABLET PO PRN (18:00)
[2022-03-21 18:31] LABS: VBG HCO3 28 mEq/L (21-27); VBG PCO2 46 mmHg (41-51); VBG PH 7.39 pH Units (7.32-7.42); VBG PO2 42 mmHg (25-50)
[2022-03-21 19:34] LABS: Calcium 9.7 mg/dL (8.6-10.3); Potassium 5.8 mEq/L (3.5-5.1)
[2022-03-21 19:51] LABS: Basophils # 0.1 K/mcL (0.0-0.2); Basophils % 0.4 %; Eosinophils # 0.3 K/mcL (0.0-0.6); Eosinophils % 2.3 %; Hematocrit 28.4 % (37.5-50.1); Hemoglobin 9.2 g/dL (12.9-16.9); Immature Granulocytes % 2.6 % (0-4); Lymphocytes # 1.3 K/mcL (0.6-4.6); Lymphocytes % 10.3 %; Mean Corpuscular HGB Conc 32.4 g/dL (31.6-35.5); Mean Corpuscular Hemoglobin 32.6 pg (28.0-33.3); Mean Corpuscular Volume 100.7 fL (83.0-100.0); Mean Platelet Volume 10.9 fL (9.4-12.4); Monocytes # 0.9 K/mcL (0.0-1.3); Monocytes % 6.7 %; Platelet Count 185 K/mcL (140-400); Red Blood Count 2.82 M/mcL (4.19-5.50); Red Cell Distribution Width 13.4 % (11.5-14.5); Segmented Neutrophils % 77.7 %; White Blood Count 12.8 K/mcL (4.3-11.1)
[2022-03-21] MEDS ORDERED: *HR* HYDROcodone/Acet 5/325 mg TABLET PO ONE (20:12)
[2022-03-21] MEDS: FLUoxetine 20 MG CAPSULE PO SCH (20:20)
[2022-03-21] MEDS: *HR* Amiodarone 200 MG TABLET PO SCH (20:20)
[2022-03-22] MEDS: Aspirin Enteric Coated 81 MG Tablet PO SCH (07:57)
[2022-03-22] MEDS: Cyanocobalamin (B-12) 1,000 MCG TABLET PO SCH (07:57)
[2022-03-22] MEDS: *HR* Amiodarone 200 MG TABLET PO SCH ×2 (07:57→19:50)
[2022-03-22] MEDS: FLUoxetine 20 MG CAPSULE PO SCH ×2 (07:57→19:51)
[2022-03-22] MEDS: Acetaminophen 325 MG TABLET PO PRN ×2 (07:57→19:50)
[2022-03-22] MEDS: allopurinoL 100 MG TABLET PO SCH (07:57)
[2022-03-22] MEDS: Furosemide 40 MG TABLET PO SCH (07:58)
[2022-03-22] MEDS: Calcium Acetate 667 MG CAPSULE PO SCH ×4 (07:58→20:03)
[2022-03-22] MEDS ORDERED: Furosemide 40 MG TABLET PO SCH (09:00)
[2022-03-22 10:22] LABS: Basophils % 0.4 %; Eosinophils # 0.3 K/mcL (0.0-0.6); Eosinophils % 2.6 %; Hematocrit 25.6 % (37.5-50.1); Hemoglobin 8.2 g/dL (12.9-16.9); Immature Granulocytes % 1.8 % (0-4); Mean Corpuscular Hemoglobin 33.1 pg (28.0-33.3); Mean Corpuscular Volume 103.2 fL (83.0-100.0); Mean Platelet Volume 10.6 fL (9.4-12.4); Monocytes # 0.9 K/mcL (0.0-1.3); Monocytes % 7.7 %; Neutrophils # 8.9 K/mcL (1.6-8.9); Platelet Count 153 K/mcL (140-400); Red Blood Count 2.48 M/mcL (4.19-5.50); Red Cell Distribution Width 13.6 % (11.5-14.5); Segmented Neutrophils % 78.5 %; White Blood Count 11.3 K/mcL (4.3-11.1)
[2022-03-22 10:39] LABS: Albumin 3.5 g/dL (3.5-5.7); Albumin/Globulin Ratio 1.8 (1.1-2.2); Bilirubin,Total 0.4 mg/dL (0.3-1.0); Calcium 9.4 mg/dL (8.6-10.3); Globulin 1.9 g/dL (2.4-3.5); Potassium 5.9 mEq/L (3.5-5.1); Total Protein 5.4 g/dL (6.4-8.9)
[2022-03-22] MEDS: D5% in 0.9% NACL 1,000 ML IVC SCH (12:25)
[2022-03-22] MEDS ORDERED: Perflutren Lipid Microsphere 1.3 ML in 0.9 % Sodium Chloride 8.7 ML IVP PRN (14:33)
[2022-03-22] MEDS ORDERED: 0.9 % Sodium Chloride 250 ML IVC PRN (14:47)
[2022-03-22] MEDS ORDERED: 0.9 % Sodium Chloride 1,000 ML PRIME SCH (15:00)
[2022-03-22] MEDS: Melatonin 3 MG TABLET PO PRN (19:50)
[2022-03-22] MEDS ORDERED: Apixaban 5 MG TABLET PO SCH (21:00)
[2022-03-22] MEDS ORDERED: Methyl Salicylate/Menthol 85 APPL/85 GM TUBE TP PRN (22:11)
[2022-03-23 04:36] LABS: Basophils % 0.2 %; Eosinophils # 0.3 K/mcL (0.0-0.6); Eosinophils % 2.9 %; Hematocrit 23.7 % (37.5-50.1); Hemoglobin 7.7 g/dL (12.9-16.9); Immature Granulocytes % 1.8 % (0-4); Lymphocytes % 10.5 %; Mean Corpuscular HGB Conc 32.5 g/dL (31.6-35.5); Mean Corpuscular Hemoglobin 33.5 pg (28.0-33.3); Mean Platelet Volume 10.4 fL (9.4-12.4); Monocytes # 0.7 K/mcL (0.0-1.3); Monocytes % 7.4 %; Neutrophils # 7.3 K/mcL (1.6-8.9); Platelet Count 142 K/mcL (140-400); Red Cell Distribution Width 13.7 % (11.5-14.5); Segmented Neutrophils % 77.2 %; White Blood Count 9.4 K/mcL (4.3-11.1)
[2022-03-23 04:54] LABS: Magnesium 2.8 mg/dL (1.6-2.6); Phosphorous 5.5 mg/dL (2.7-4.5)
[2022-03-23 04:56] LABS: Albumin 3.2 g/dL (3.5-5.7); Albumin/Globulin Ratio 1.8 (1.1-2.2); Bilirubin,Total 0.3 mg/dL (0.3-1.0); Calcium 9.3 mg/dL (8.6-10.3); Globulin 1.8 g/dL (2.4-3.5); Potassium 5.1 mEq/L (3.5-5.1)
[2022-03-23] MEDS: Acetaminophen 325 MG TABLET PO PRN (04:57)
[2022-03-23] MEDS: *HR* Amiodarone 200 MG TABLET PO SCH ×2 (05:25→22:18)
[2022-03-23] MEDS: Furosemide 40 MG TABLET PO SCH (05:30)
[2022-03-23] MEDS: D5% in 0.9% NACL 1,000 ML IVC SCH (08:40)
[2022-03-23] MEDS: FLUoxetine 20 MG CAPSULE PO SCH ×2 (08:40→22:18)
[2022-03-23] MEDS: Calcium Acetate 667 MG CAPSULE PO SCH ×3 (08:40→16:38)
[2022-03-23] MEDS: Cyanocobalamin (B-12) 1,000 MCG TABLET PO SCH (08:40)
[2022-03-23] MEDS: allopurinoL 100 MG TABLET PO SCH (08:40)
[2022-03-23] MEDS: Aspirin Enteric Coated 81 MG Tablet PO SCH (08:40)
[2022-03-23] MEDS ORDERED: Apixaban 5 MG TABLET PO SCH (09:00)
[2022-03-23] MEDS ORDERED: 0.9 % Sodium Chloride 250 ML IVC PRN (10:07)
[2022-03-24] MEDS: D5% in 0.9% NACL 1,000 ML IVC SCH (05:49)
[2022-03-24 06:17] LABS: Basophils % 0.1 %; Eosinophils # 0.3 K/mcL (0.0-0.6); Eosinophils % 3.4 %; Hematocrit 23.9 % (37.5-50.1); Hemoglobin 7.6 g/dL (12.9-16.9); Immature Granulocytes % 1.8 % (0-4); Lymphocytes # 1.1 K/mcL (0.6-4.6); Lymphocytes % 13.8 %; Mean Corpuscular HGB Conc 31.8 g/dL (31.6-35.5); Mean Corpuscular Hemoglobin 32.9 pg (28.0-33.3); Mean Corpuscular Volume 103.5 fL (83.0-100.0); Mean Platelet Volume 10.1 fL (9.4-12.4); Monocytes # 0.7 K/mcL (0.0-1.3); Monocytes % 8.6 %; Platelet Count 144 K/mcL (140-400); Red Blood Count 2.31 M/mcL (4.19-5.50); Red Cell Distribution Width 13.7 % (11.5-14.5); Segmented Neutrophils % 72.3 %; White Blood Count 8.3 K/mcL (4.3-11.1)
[2022-03-24 06:34] LABS: % Iron Saturation 16 % (20-55); Iron 31 mcg/dL (65-175); Transferrin 137 mg/dL (203-362)
[2022-03-24 06:36] LABS: Albumin 3.3 g/dL (3.5-5.7); Albumin/Globulin Ratio 1.8 (1.1-2.2); Bilirubin,Total 0.4 mg/dL (0.3-1.0); Calcium 9.3 mg/dL (8.6-10.3); Globulin 1.8 g/dL (2.4-3.5); Potassium 4.5 mEq/L (3.5-5.1); Total Protein 5.1 g/dL (6.4-8.9)
[2022-03-24] MEDS: Furosemide 40 MG TABLET PO SCH (07:34)
[2022-03-24] MEDS: allopurinoL 100 MG TABLET PO SCH (07:34)
[2022-03-24] MEDS: Cyanocobalamin (B-12) 1,000 MCG TABLET PO SCH (07:34)
[2022-03-24] MEDS: Aspirin Enteric Coated 81 MG Tablet PO SCH (07:34)
[2022-03-24] MEDS: FLUoxetine 20 MG CAPSULE PO SCH ×2 (07:35→20:20)
[2022-03-24] MEDS: Calcium Acetate 667 MG CAPSULE PO SCH ×3 (07:35→16:34)
[2022-03-24] MEDS: *HR* Amiodarone 200 MG TABLET PO SCH ×2 (07:35→20:20)
[2022-03-24] MEDS: Melatonin 3 MG TABLET PO PRN (20:20)
[2022-03-25 05:20] LABS: Basophils % 0.4 %; Eosinophils # 0.4 K/mcL (0.0-0.6); Eosinophils % 4.4 %; Hematocrit 23.8 % (37.5-50.1); Hemoglobin 7.4 g/dL (12.9-16.9); Immature Granulocytes % 1.5 % (0-4); Lymphocytes # 1.4 K/mcL (0.6-4.6); Lymphocytes % 16.5 %; Mean Corpuscular HGB Conc 31.1 g/dL (31.6-35.5); Mean Corpuscular Hemoglobin 32.6 pg (28.0-33.3); Mean Corpuscular Volume 104.8 fL (83.0-100.0); Mean Platelet Volume 10.4 fL (9.4-12.4); Monocytes # 0.7 K/mcL (0.0-1.3); Monocytes % 8.2 %; Neutrophils # 5.7 K/mcL (1.6-8.9); Platelet Count 151 K/mcL (140-400); Red Blood Count 2.27 M/mcL (4.19-5.50); Red Cell Distribution Width 13.9 % (11.5-14.5); White Blood Count 8.2 K/mcL (4.3-11.1)
[2022-03-25 05:38] LABS: Albumin 3.3 g/dL (3.5-5.7); Albumin/Globulin Ratio 1.8 (1.1-2.2); Bilirubin,Total 0.3 mg/dL (0.3-1.0); Calcium 9.9 mg/dL (8.6-10.3); Globulin 1.8 g/dL (2.4-3.5); Potassium 4.8 mEq/L (3.5-5.1); Total Protein 5.1 g/dL (6.4-8.9)
[2022-03-25] MEDS: allopurinoL 100 MG TABLET PO SCH (08:38)
[2022-03-25] MEDS: Furosemide 40 MG TABLET PO SCH (08:38)
[2022-03-25] MEDS: *HR* Amiodarone 200 MG TABLET PO SCH ×2 (08:38→20:52)
[2022-03-25] MEDS: Calcium Acetate 667 MG CAPSULE PO SCH ×3 (08:38→16:59)
[2022-03-25] MEDS: FLUoxetine 20 MG CAPSULE PO SCH ×2 (08:38→20:51)
[2022-03-25] MEDS: Aspirin Enteric Coated 81 MG Tablet PO SCH (08:38)
[2022-03-25] MEDS: Cyanocobalamin (B-12) 1,000 MCG TABLET PO SCH (08:38)
[2022-03-25] MEDS: Melatonin 3 MG TABLET PO PRN (20:52)
[2022-03-25] MEDS: Acetaminophen 325 MG TABLET PO PRN (20:58)
[2022-03-26 06:14] LABS: Basophils % 0.4 %; Eosinophils # 0.4 K/mcL (0.0-0.6); Hematocrit 23.5 % (37.5-50.1); Hemoglobin 7.4 g/dL (12.9-16.9); Immature Granulocytes % 1.5 % (0-4); Lymphocytes # 1.2 K/mcL (0.6-4.6); Lymphocytes % 14.6 %; Mean Corpuscular HGB Conc 31.5 g/dL (31.6-35.5); Mean Corpuscular Hemoglobin 32.6 pg (28.0-33.3); Mean Corpuscular Volume 103.5 fL (83.0-100.0); Mean Platelet Volume 10.2 fL (9.4-12.4); Monocytes # 0.6 K/mcL (0.0-1.3); Monocytes % 7.8 %; Neutrophils # 5.6 K/mcL (1.6-8.9); Platelet Count 132 K/mcL (140-400); Red Blood Count 2.27 M/mcL (4.19-5.50); Red Cell Distribution Width 13.6 % (11.5-14.5); Segmented Neutrophils % 70.7 %
[2022-03-26 06:45] LABS: Calcium 9.7 mg/dL (8.6-10.3); Magnesium 2.7 mg/dL (1.6-2.6); Potassium 5.1 mEq/L (3.5-5.1)
[2022-03-26 07:07] LABS: Folate 7.6 ng/mL (3.0-16.0)
[2022-03-26] MEDS: carvediloL 6.25 MG TABLET PO SCH ×2 (08:09→17:44)
[2022-03-26] MEDS: Cyanocobalamin (B-12) 1,000 MCG TABLET PO SCH (08:09)
[2022-03-26] MEDS: *HR* Amiodarone 200 MG TABLET PO SCH ×2 (08:09→20:17)
[2022-03-26] MEDS: Aspirin Enteric Coated 81 MG Tablet PO SCH (08:09)
[2022-03-26] MEDS: allopurinoL 100 MG TABLET PO SCH (08:11)
[2022-03-26] MEDS: Calcium Acetate 667 MG CAPSULE PO SCH ×3 (08:11→17:44)
[2022-03-26] MEDS: Furosemide 40 MG TABLET PO SCH (08:11)
[2022-03-26] MEDS: FLUoxetine 20 MG CAPSULE PO SCH ×2 (08:12→20:17)
[2022-03-26] MEDS ORDERED: 0.9 % Sodium Chloride 250 ML IVC PRN (08:25)
[2022-03-26] MEDS ORDERED: Ethyl Chloride Spray Bottle (104 SPRAY/BOTTLE) TP PRN (08:25)
[2022-03-26] MEDS: Acetaminophen 325 MG TABLET PO PRN ×2 (14:09→20:21)
[2022-03-27] MEDS: allopurinoL 100 MG TABLET PO SCH (07:56)
[2022-03-27] MEDS: carvediloL 6.25 MG TABLET PO SCH ×2 (07:56→16:12)
[2022-03-27] MEDS: Furosemide 40 MG TABLET PO SCH (07:56)
[2022-03-27] MEDS: FLUoxetine 20 MG CAPSULE PO SCH ×2 (07:57→20:10)
[2022-03-27] MEDS: Cyanocobalamin (B-12) 1,000 MCG TABLET PO SCH (07:57)
[2022-03-27] MEDS: Calcium Acetate 667 MG CAPSULE PO SCH ×4 (07:57→16:12)
[2022-03-27] MEDS: Aspirin Enteric Coated 81 MG Tablet PO SCH (07:57)
[2022-03-27] MEDS: *HR* Amiodarone 200 MG TABLET PO SCH ×2 (07:57→20:10)
[2022-03-27 09:21] LABS: Basophils % 0.4 %; Eosinophils # 0.3 K/mcL (0.0-0.6); Eosinophils % 4.7 %; Hematocrit 23.7 % (37.5-50.1); Hemoglobin 7.6 g/dL (12.9-16.9); Immature Granulocytes % 1.3 % (0-4); Lymphocytes # 1.1 K/mcL (0.6-4.6); Lymphocytes % 16.1 %; Mean Corpuscular HGB Conc 32.1 g/dL (31.6-35.5); Mean Corpuscular Hemoglobin 32.8 pg (28.0-33.3); Mean Corpuscular Volume 102.2 fL (83.0-100.0); Monocytes # 0.6 K/mcL (0.0-1.3); Monocytes % 8.1 %; Neutrophils # 4.7 K/mcL (1.6-8.9); Platelet Count 145 K/mcL (140-400); Red Blood Count 2.32 M/mcL (4.19-5.50); Red Cell Distribution Width 13.7 % (11.5-14.5); Segmented Neutrophils % 69.4 %; White Blood Count 6.8 K/mcL (4.3-11.1)
[2022-03-27 09:27] LABS: Calcium 9.1 mg/dL (8.6-10.3); Magnesium 2.3 mg/dL (1.6-2.6); Potassium 4.5 mEq/L (3.5-5.1)
[2022-03-27] MEDS: Acetaminophen 325 MG TABLET PO PRN (20:10)
[2022-03-27] MEDS: Melatonin 3 MG TABLET PO PRN (20:10)
[2022-03-27] MEDS ORDERED: *HR* LORazepam 2 MG/ML VIAL IVP ONE (20:23)
[2022-03-28 05:48] LABS: Basophils % 0.3 %; Eosinophils # 0.3 K/mcL (0.0-0.6); Eosinophils % 4.1 %; Hematocrit 24.5 % (37.5-50.1); Hemoglobin 7.7 g/dL (12.9-16.9); Immature Granulocytes % 1.3 % (0-4); Lymphocytes # 1.2 K/mcL (0.6-4.6); Lymphocytes % 16.3 %; Mean Corpuscular HGB Conc 31.4 g/dL (31.6-35.5); Mean Corpuscular Hemoglobin 32.6 pg (28.0-33.3); Mean Corpuscular Volume 103.8 fL (83.0-100.0); Mean Platelet Volume 10.1 fL (9.4-12.4); Monocytes # 0.7 K/mcL (0.0-1.3); Monocytes % 8.7 %; Neutrophils # 5.2 K/mcL (1.6-8.9); Platelet Count 141 K/mcL (140-400); Red Blood Count 2.36 M/mcL (4.19-5.50); Red Cell Distribution Width 13.8 % (11.5-14.5); Segmented Neutrophils % 69.3 %; White Blood Count 7.6 K/mcL (4.3-11.1)
[2022-03-28 06:12] LABS: Calcium 9.6 mg/dL (8.6-10.3); Magnesium 2.5 mg/dL (1.6-2.6); Phosphorous 5.6 mg/dL (2.7-4.5); Potassium 4.9 mEq/L (3.5-5.1)
[2022-03-28] MEDS: Aspirin Enteric Coated 325 MG Tablet PO SCH (08:14)
[2022-03-28] MEDS: allopurinoL 100 MG TABLET PO SCH (08:14)
[2022-03-28] MEDS: carvediloL 6.25 MG TABLET PO SCH ×2 (08:14→16:57)
[2022-03-28] MEDS: *HR* Amiodarone 200 MG TABLET PO SCH ×2 (08:14→19:53)
[2022-03-28] MEDS: Cyanocobalamin (B-12) 1,000 MCG TABLET PO SCH (08:14)
[2022-03-28] MEDS: FLUoxetine 20 MG CAPSULE PO SCH ×2 (08:15→19:53)
[2022-03-28] MEDS: Furosemide 40 MG TABLET PO SCH (08:15)
[2022-03-28] MEDS: Calcium Acetate 667 MG CAPSULE PO SCH ×3 (08:15→16:58)
[2022-03-28] MEDS ORDERED: 0.9 % Sodium Chloride 250 ML IVC PRN (08:54)
[2022-03-28] MEDS ORDERED: traZODone 50 MG TABLET PO PRN (20:01)
[2022-03-28] MEDS: Acetaminophen 325 MG TABLET PO PRN (20:42)
[2022-03-29 00:53] LABS: Basophils % 0.3 %; Eosinophils # 0.3 K/mcL (0.0-0.6); Hematocrit 22.9 % (37.5-50.1); Hemoglobin 7.4 g/dL (12.9-16.9); Immature Granulocytes % 1.6 % (0-4); Lymphocytes # 1.1 K/mcL (0.6-4.6); Mean Corpuscular HGB Conc 32.3 g/dL (31.6-35.5); Mean Corpuscular Hemoglobin 32.7 pg (28.0-33.3); Mean Corpuscular Volume 101.3 fL (83.0-100.0); Monocytes # 0.6 K/mcL (0.0-1.3); Monocytes % 8.8 %; Neutrophils # 4.7 K/mcL (1.6-8.9); Platelet Count 144 K/mcL (140-400); Red Blood Count 2.26 M/mcL (4.19-5.50); Red Cell Distribution Width 13.6 % (11.5-14.5); Segmented Neutrophils % 69.3 %; White Blood Count 6.8 K/mcL (4.3-11.1)
[2022-03-29 01:59] LABS: Calcium 9.1 mg/dL (8.6-10.3); Magnesium 2.2 mg/dL (1.6-2.6); Potassium 4.7 mEq/L (3.5-5.1)
[2022-03-29] MEDS: Calcium Acetate 667 MG CAPSULE PO SCH ×3 (10:01→16:51)
[2022-03-29] MEDS: allopurinoL 100 MG TABLET PO SCH (10:01)
[2022-03-29] MEDS: FLUoxetine 20 MG CAPSULE PO SCH ×2 (10:01→19:59)
[2022-03-29] MEDS: carvediloL 6.25 MG TABLET PO SCH ×2 (10:02→16:51)
[2022-03-29] MEDS: Aspirin Enteric Coated 325 MG Tablet PO SCH (10:02)
[2022-03-29] MEDS: Furosemide 40 MG TABLET PO SCH (10:02)
[2022-03-29] MEDS: Cyanocobalamin (B-12) 1,000 MCG TABLET PO SCH (10:03)
[2022-03-29] MEDS: *HR* Amiodarone 200 MG TABLET PO SCH ×2 (10:03→19:59)
[2022-03-30 01:15] LABS: Basophils % 0.3 %; Eosinophils # 0.3 K/mcL (0.0-0.6); Eosinophils % 4.8 %; Hematocrit 23.2 % (37.5-50.1); Hemoglobin 7.4 g/dL (12.9-16.9); Immature Granulocytes % 1.6 % (0-4); Lymphocytes # 1.1 K/mcL (0.6-4.6); Lymphocytes % 17.9 %; Mean Corpuscular HGB Conc 31.9 g/dL (31.6-35.5); Mean Corpuscular Hemoglobin 32.7 pg (28.0-33.3); Mean Corpuscular Volume 102.7 fL (83.0-100.0); Mean Platelet Volume 10.2 fL (9.4-12.4); Monocytes # 0.6 K/mcL (0.0-1.3); Monocytes % 9.7 %; Neutrophils # 4.1 K/mcL (1.6-8.9); Platelet Count 129 K/mcL (140-400); Red Blood Count 2.26 M/mcL (4.19-5.50); Red Cell Distribution Width 13.8 % (11.5-14.5); Segmented Neutrophils % 65.7 %; White Blood Count 6.2 K/mcL (4.3-11.1)
[2022-03-30 01:34] LABS: Calcium 9.4 mg/dL (8.6-10.3); Magnesium 2.3 mg/dL (1.6-2.6); Phosphorous 6.3 mg/dL (2.7-4.5); Potassium 4.8 mEq/L (3.5-5.1)
[2022-03-30] MEDS ORDERED: 0.9 % Sodium Chloride 250 ML IVC PRN (08:13)
[2022-03-30] MEDS ORDERED: Ethyl Chloride Spray Bottle (104 SPRAY/BOTTLE) TP PRN (08:17)
[2022-03-30] MEDS: FLUoxetine 20 MG CAPSULE PO SCH ×2 (08:40→20:29)
[2022-03-30] MEDS: carvediloL 6.25 MG TABLET PO SCH ×2 (08:41→16:30)
[2022-03-30] MEDS: *HR* Amiodarone 200 MG TABLET PO SCH ×2 (08:41→20:30)
[2022-03-30] MEDS: Calcium Acetate 667 MG CAPSULE PO SCH ×3 (08:41→16:30)
[2022-03-30] MEDS: Cyanocobalamin (B-12) 1,000 MCG TABLET PO SCH (08:41)
[2022-03-30] MEDS: Aspirin Enteric Coated 325 MG Tablet PO SCH (08:41)
[2022-03-30] MEDS: allopurinoL 100 MG TABLET PO SCH (08:41)
[2022-03-30] MEDS: Furosemide 40 MG TABLET PO SCH (08:41)
[2022-03-30] MEDS ORDERED: polyethylene glycoL 3350 17 GM POWD.PACK PO PRN (10:18)
[2022-03-30] MEDS: Sennosides/Docusate Sodium TABLET PO SCH (20:29)
[2022-03-31 04:49] LABS: Basophils % 0.3 %; Eosinophils # 0.2 K/mcL (0.0-0.6); Eosinophils % 3.8 %; Hematocrit 23.1 % (37.5-50.1); Hemoglobin 7.6 g/dL (12.9-16.9); Immature Granulocytes % 1.3 % (0-4); Lymphocytes # 1.2 K/mcL (0.6-4.6); Lymphocytes % 18.3 %; Mean Corpuscular HGB Conc 32.9 g/dL (31.6-35.5); Mean Corpuscular Hemoglobin 33.2 pg (28.0-33.3); Mean Corpuscular Volume 100.9 fL (83.0-100.0); Mean Platelet Volume 10.4 fL (9.4-12.4); Monocytes # 0.6 K/mcL (0.0-1.3); Monocytes % 8.9 %; Neutrophils # 4.3 K/mcL (1.6-8.9); Platelet Count 148 K/mcL (140-400); Red Blood Count 2.29 M/mcL (4.19-5.50); Red Cell Distribution Width 14.1 % (11.5-14.5); Segmented Neutrophils % 67.4 %; White Blood Count 6.4 K/mcL (4.3-11.1)
[2022-03-31 05:05] LABS: Calcium 9.2 mg/dL (8.6-10.3); Magnesium 2.1 mg/dL (1.6-2.6); Phosphorous 4.6 mg/dL (2.7-4.5); Potassium 4.2 mEq/L (3.5-5.1)
[2022-03-31] MEDS: carvediloL 6.25 MG TABLET PO SCH ×2 (07:32→17:09)
[2022-03-31] MEDS: FLUoxetine 20 MG CAPSULE PO SCH ×2 (07:32→20:50)
[2022-03-31] MEDS: Calcium Acetate 667 MG CAPSULE PO SCH ×3 (07:33→17:10)
[2022-03-31] MEDS: allopurinoL 100 MG TABLET PO SCH (07:33)
[2022-03-31] MEDS: Sennosides/Docusate Sodium TABLET PO SCH ×2 (07:33→20:49)
[2022-03-31] MEDS: Furosemide 40 MG TABLET PO SCH (07:33)
[2022-03-31] MEDS: *HR* Amiodarone 200 MG TABLET PO SCH ×2 (07:33→20:50)
[2022-03-31] MEDS: Cyanocobalamin (B-12) 1,000 MCG TABLET PO SCH (07:33)
[2022-03-31] MEDS: Aspirin Enteric Coated 325 MG Tablet PO SCH (07:33)
[2022-03-31] MEDS: *HR* Heparin 5,000 UNIT/ML VIAL SQ SCH (17:10)
[2022-03-31] MEDS ORDERED: Melatonin 3 MG TABLET PO SCH (21:00)
[2022-04-01] MEDS: *HR* Heparin 5,000 UNIT/ML VIAL SQ SCH (06:25)
[2022-04-01] MEDS: carvediloL 6.25 MG TABLET PO SCH (08:12)
[2022-04-01] MEDS: FLUoxetine 20 MG CAPSULE PO SCH (08:12)
[2022-04-01] MEDS: allopurinoL 100 MG TABLET PO SCH (08:12)
[2022-04-01] MEDS: Cyanocobalamin (B-12) 1,000 MCG TABLET PO SCH (08:13)
[2022-04-01] MEDS: *HR* Amiodarone 200 MG TABLET PO SCH (08:13)
[2022-04-01] MEDS: Sennosides/Docusate Sodium TABLET PO SCH (08:13)
[2022-04-01] MEDS: Aspirin Enteric Coated 325 MG Tablet PO SCH (08:13)
[2022-04-01] MEDS: Calcium Acetate 667 MG CAPSULE PO SCH ×2 (08:14→11:35)
[2022-04-01] MEDS ORDERED: Furosemide 40 MG TABLET PO SCH (09:00)
[2022-04-01 11:32] VITALS: BP 169/90; PULSE 73; TEMP 98.2; O2SAT 95
[2022-04-01 11:38] LABS: Influenza A PCR Negative (Negative); Influenza B PCR Negative (Negative); Resp. Syncytial Virus PCR Negative (Negative)
[2022-04-01 11:43] LABS: SARS-CoV-2 by PCR (In House) Negative (Negative)
== END 2022-04-01 14:01 | DRG 64 ==
LOC: 2ANU 13:48 → EMEROOARM 13:48 → 2ANU 15:48 → SUATTDRO 03-22 13:45 → 2ANU 03-23 09:01
PROVIDERS: ADMIT Internal Medicine; ATTEND Internal Medicine